=== PATIENT | male | born 1955 | race Caucasian/White ===

== ENCOUNTER 2019-04-18 14:42 | Inpatient (IN) | payer BC ==
[~2019-04-18 14:42] MED LIST: Gadobenate Dimeglumine 529 MG/1 ML (20ML VIAL) ONE
[2019-04-18 15:07] LABS: #Lymphocytes 0.8 thou/uL (1.20-3.40); #Monocytes 0.2 thou/uL (0.11-0.59); #Neutrophils 9.8 thou/uL (1.40-6.50); %Basophils 0.3 % (0.0-1.0); %Monocytes 2.2 % (0.0-10.0); %Neutrophils 90.5 % (42.0-75.0); Hemoglobin 13.1 g/dL (14.0-18.0); Mean Corpuscular HGB CONC 33.8 g/dL (32.0-36.0); Mean Corpuscular Hemoglobin 33.3 pg (27.0-31.0); Mean Corpuscular Volume 98.7 fL (78.0-98.0); Mean Platelet Volume 8.3 fL (7.4-10.4); Platelet Count 216 thou/uL (130-400); RBC Distribution Width 11.7 % (11.5-14.5); Red Blood Cell (RBC) Count 3.94 mill/uL (4.70-6.10); White Blood Cell (WBC) Count 10.8 thou/uL (4.8-10.8)
[2019-04-18 15:23] LABS: ALT (SGPT) 20 U/L (8-55); AST (SGOT) 19 U/L (5-34); Albumin 4.4 g/dL (3.4-4.8); Alkaline Phosphatase 42 U/L (40-150); Anion Gap 14 mmol/L (10-20); BUN (Urea Nitrogen) 15 mg/dL (8.4-25.7); Bilirubin, Total 0.4 mg/dL (0.2-1.2); CK (CPK) 104 U/L (30-200); Calc. Creatinine Clearance 0 mL/min (70-130); Calcium 9.5 mg/dL (7.8-10.44); Carbon Dioxide 27 mmol/L (23-31); Chloride 101 mmol/L (98-107); Estimated GFR-MDRD 81; Globulin 3.2 g/dL (2.4-3.5); Glucose 175 mg/dL (80-115); Potassium 3.8 mmol/L (3.5-5.1); Protein, Total 7.6 g/dL (5.8-8.1); Sodium 138 mmol/L (136-145)
--- NOTE | 2019-04-18 15:23 | CT ---
CT head noncontrast HISTORY: Headache. FINDINGS: A large oval intra-axial heterogeneous hyperdense fluid collection centered within the righ t frontal lobe measures up to 5.5 cm length by 2.1 cm width on the axial images and is in the area generally associated with the watershed distribution between the anterior and middle cerebral artery distributions. Hypodense parenchyma surrounds the acute hematoma. Significant extension of acute hemorrhage into the ventricular system, layering within the dependent portion of the ventricles. Mild distention of each lateral ventricle and temporal horn. Small amount of hyperdense fluid within the sulci of the the effaced cerebral hemispheres bilaterally. Significant diffuse cerebral sulcal ef facement. Mild widespread subarachnoid hemorrhagic component. IMPRESSION: Large right frontal intra-axial acute hematoma with intraventricular extension and early hydrocephalus. Diffuse prominent cerebral edema. 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 Metz in the emergency department at 1514 hours. Code CR.
[2019-04-18] MEDS ORDERED: Ondansetron PF 4 MG/2 ML Vial ONE (15:28)
[2019-04-18 15:36] LABS: PTT 27.8 SEC (22.9-36.1); Prothrombin Time 13.1 SEC (12.0-14.7)
[2019-04-18] MEDS ORDERED: Nitroglycerin 2% Ointment 1 INCH/1 GM Packet ONE (15:37)
--- NOTE | 2019-04-18 15:50 | RAD ---
CHEST 1 VIEW: Date: 04/18/19 HISTORY: Nausea and vomiting and headache. Altered mental status. FINDINGS: There is a nodular density overlying the left upper chest, possibly a pulmonary nodule, approximating 1.0 cm. Heart size is normal. The lungs are clear. IMPRESSION: 1.0 cm diameter nodular density overlying the region of the left upper lobe, possibly a pulmonary nod ule. Consider nonemergent follow-up chest CT scan for further assessment. No evidence for other signi ficant acute process. CODE LN. POS: RRE
[2019-04-18] MEDS ORDERED: Morphine 4 MG/ML VIAL ONE (15:51)
[2019-04-18] MEDS ORDERED: Labetalol HCl 100 MG/20 ML VIAL SLOW IVP PRN ×2 (16:04→18:08)
[2019-04-18] MEDS ORDERED: Acetaminophen 325 MG TAB PO PRN (16:04)
[2019-04-18] MEDS ORDERED: Mag-Al 1200 mg/1200 mg/30 ML UDCUP PO PRN ×2 (16:04→18:08)
[2019-04-18] MEDS ORDERED: Sodium Chloride 0.9% 1,000 ML IV SCH (16:15)
--- NOTE | 2019-04-18 17:02 | PRG ---
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 Over this period of time, he also experienced nausea. His who was present with him states that he had difficulty with standing and gait stability during this period of time. From that time through now, he states the intensity of the headache and the nausea have been relatively stable. These symptoms prompted him to visit the ER where he had a noncontrast head CT performed, which reveals the presence of an intracerebral hemorrhage located within the right medial aspect of the frontal lobe, which extends from the cortex to the ventricle. Associated with the hemorrhage, there is some perihemorrhagic edema. He has a very small degree of midline shift. There is some extension of blood products into the ventricle where there is dependent layering of blood within the occipital horn. There is no evidence for any significant hydrocephalus at this point in time. There may be an area of small hypodensity in the contralateral frontal hemisphere on the left side without associated hemorrhage. I met with him and his in the [facility] ER to review with him the imaging findings and to examine him. He is alert and oriented. He moves all 4 extremities well and is grossly intact neurologically. He does perseverate with a pipe fitter helper on the left side. He does report headache as well as nausea. PLAN: Plan will be transferred to the main hospital admission to the ICU. I have already made Dr. Aguirre with Pulmonary/Critical Care and Dr. Nicole with the hospitalist service aware of his imminent arrival. Once he arrives, we will further investigate potential cause for his hemorrhage including MRI scan with and without contrast and potentially vascular imaging as well. We will work to maintain his blood pressure within the systolic range of less than 160. Currently, it is 135 systolic. We will also repeat a CT scan in the morning and remain vigilant with respect to potential for hydrocephalus. Currently, differential diagnosis includes lobar hemorrhage, hemorrhagic transformation of ischemic stroke, and hemorrhagic manifestation of underlying lesion either vascular or neoplastic. Job ID: [id number] MTDD
--- NOTE | 2019-04-18 18:13 | MRI ---
MRI BRAIN WITH AND WITHOUT CONTRAST: INDICATIONS: Intracranial hemorrhage. CORRELATION: CT brain performed earlier today, which revealed a large parenchymal hematoma in the right frontal lo be. FINDINGS: MRI again confirms a large right frontal lobe hematoma. There is mild surrounding edema. There is some restricted diffusion surrounding this hematoma, although this is compatible with a gloria ricardo. An infarct cannot be confirmed. No other evidence of restricted diffusion. No other mass or edema. Moderate to severe diffuse white matter hyperintensities are seen in both cerebral hemispheres on the FLAIR sequence, suggesting severe chronic ischemic white matter change. Recommend clinical correlat ion regarding predisposing factors. There is no evidence of gradient echo changes that would indicate diffuse amyloid angiopathy. There is no evidence of arteriovenous malformation. There is mild midline shift and mild effacement of the right lateral ventricle. Mild intraventricula r extension was described on CT. No abnormal enhancement. IMPRESSION: 1. Large right frontal lobe hematoma, measuring 8 cm in anterior-posterior dimension x 3.4 cm in wid th, in the axial plane. There is intraventricular extension. There is mild midline shift, measured at approximately 3 mm at the septum pellucidum, unchanged from the CT earlier today. 2. No abnormal enhancement 3. Hemorrhagic metastasis and hemorrhagic infarct cannot be confirmed on this examination. Followup recommended. POS: ABEBA
--- NOTE | 2019-04-18 18:25 | CON ---
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 His brought him to the hospital in the car, where a CT head revealed a large frontal headache. Dr. Wiggins, neurosurgeon has seen him, had been transferred to the ICU for futher work up and treatment. Nonsmoker, minimal drinking. Only medical problem appears to be apparently some kind of reflux and BPH. He sees a local Dr. Acevedo, urologist. PREVIOUS SURGERY: Only vasectomy. MEDICATIONS: Include: 1. Aspirin. 2. Zantac. ALLERGIES: PENICILLIN, SULFA. REVIEW OF SYSTEMS: Otherwise unremarkable. PHYSICAL EXAMINATION: GENERAL: On initial examination, he is awake, alert, responsive, does move all 4 extremities. VITAL SIGNS: His vital signs in the ER are reported otherwise pretty stable with a blood pressure of 153/88, saturations 100% on room air, respiratory rate 18, pulse 80. NEUROLOGIC: He is verbalizing. Moves all 4 extremities. CHEST: No wheezing or crackles. CARDIAC: Normal S1 and S2. No gallops. ABDOMEN: No masses. LABORATORY DATA: White count 10,000, H and H unremarkable. Platelet count normal. Lytes are normal. Glucose slightly elevated. Chest x-ray shows a questionable smooth nodule in the left upper lung. CT head shows a large intracerebral intrafrontal headache. IMPRESSION: Status post right frontal hemorrhage, etiology unclear. History of benign prostatic hypertrophy, reflux. MRI being ordered. Pulmonary/Critical Care will follow while in the ICU. Supportive care. Serial exam. Consultation note, 70 minutes, 50% direct patient care. Job ID: [id number] MTDD
[2019-04-18] MEDS: Sodium Chloride 0.9% 1,000 ML IV SCH (18:43)
[2019-04-18] MEDS ORDERED: Ondansetron ODT 4 MG TAB PO PRN (19:22)
[2019-04-18] MEDS: Ondansetron PF 4 MG/2 ML Vial IVP PRN (19:29)
[2019-04-18] MEDS: Morphine 2 MG/ML SYRINGE SLOW IVP PRN (21:16)
[2019-04-19] MEDS: Sodium Chloride 0.9% 1,000 ML IV SCH ×2 (02:24→17:08)
[2019-04-19] MEDS: Ondansetron PF 4 MG/2 ML Vial IVP PRN ×3 (02:45→15:04)
[2019-04-19 04:32] LABS: #Lymphocytes 0.7 thou/uL (1.20-3.40); #Monocytes 0.6 thou/uL (0.11-0.59); #Neutrophils 8.5 thou/uL (1.40-6.50); %Basophils 0.1 % (0.0-1.0); %Eosinophils 0.2 % (0.0-10.0); %Lymphocytes 7.5 % (21.0-51.0); %Monocytes 5.8 % (0.0-10.0); %Neutrophils 86.4 % (42.0-75.0); Hemoglobin 11.9 g/dL (14.0-18.0); Mean Corpuscular HGB CONC 32.6 g/dL (32.0-36.0); Mean Corpuscular Hemoglobin 32.8 pg (27.0-31.0); Mean Platelet Volume 8.4 fL (7.4-10.4); Platelet Count 191 thou/uL (130-400); RBC Distribution Width 11.4 % (11.5-14.5); Red Blood Cell (RBC) Count 3.61 mill/uL (4.70-6.10); White Blood Cell (WBC) Count 9.8 thou/uL (4.8-10.8)
[2019-04-19 04:52] LABS: Anion Gap 12 mmol/L (10-20); BUN (Urea Nitrogen) 18 mg/dL (8.4-25.7); Calc. Creatinine Clearance 76 mL/min (70-130); Calcium 9.3 mg/dL (7.8-10.44); Carbon Dioxide 27 mmol/L (23-31); Chloride 102 mmol/L (98-107); Estimated GFR-MDRD 90; Glucose 144 mg/dL (80-115); Potassium 4.1 mmol/L (3.5-5.1); Sodium 137 mmol/L (136-145)
--- NOTE | 2019-04-19 07:14 | CT ---
CT BRAIN WITHOUT CONTRAST: INDICATIONS: Follow up intracranial hemorrhage. COMPARISON: Prior MRI brain dated 04/18/2019. CT brain dated 04/18/2019. FINDINGS: The intraaxial hemorrhage involving the right frontal lobe has slightly enlarged, measuring 6.7 x 2.7 cm, where previously it measured approximately 6.3 x 2.5 cm. The degree of intraventricular hemorrh agic extension appears slightly more pronounced with more layered hemorrhage seen within the posterio r horns. The degree of hemorrhage within the anterior horns is similar appearing. The degree of hem orrhage within the third ventricle is similar appearing. No hydrocephalus is evident. There is wors ening layered subarachnoid hemorrhage seen within the sylvian fissures, as well as the sulci of both frontal lobes. No midline shift is evident. The basilar cisterns remain patent. The mastoid air ce lls and paranasal sinuses are clear. The skull is intact. IMPRESSION: 1. Slight interval enlargement of the right frontal lobe intraaxial hematoma with intraventricular e xtension. There is slightly more pronounced hemorrhage layered within the posterior horns of the lat eral ventricles. No hydrocephalus is evident. No midline shift is noted. 2. Worsening subarachnoid hemorrhage seen involving the sulci of the frontal lobe, as well as the sy lvian fissures. POS: BH
--- NOTE | 2019-04-19 08:00 | HP ---
PRIMARY CARE DOCTOR: The patient has no PCP. CODE STATUS: Full code. TIME OF EVALUATION: Around 8:00 p.m. CHIEF COMPLAINT: Severe headache. HISTORY OF PRESENT ILLNESS: A 63-year-old male patient with past medical history of no significant medical problems, came to the hospital after having severe headache that started around 9:00 a.m. with no clear triggers, no alleviating factors, it was severe. The patient has associated nausea and vomiting, described as a worse headache in his life. The symptoms got worse very quickly. Symptoms started suddenly. CT head was done. The patient was found to have intracranial bleeding being admitted by Neurosurgery. We have been called by Dr. Wiggins to help with medical management. REVIEW OF SYSTEMS: CONSTITUTIONAL: No fever, chills, or generalized weakness. RESPIRATORY: No cough, sputum production, or shortness of breath. CARDIOVASCULAR: No chest pain or palpitation. GASTROINTESTINAL: diarrhea, or abdominal pain. MANAGEMENT TRAINEE MARKETING: The patient has headache as described in HPI. GENITOURINARY: No burning on urination. EXTREMITIES: No leg swelling. All other systems were reviewed and negative except for the findings mentioned above. PAST MEDICAL HISTORY: The patient has a history of gastroesophageal reflux disease. PAST SURGICAL HISTORY: Vasectomy in 1991. PSYCHIATRIC HISTORY: No previous psych history. FAMILY HISTORY: Reviewed and non contributory to current presentations SOCIAL HISTORY: The patient drinks socially. No drug use. No smoking history. KNOWN ALLERGIES: Penicillin and sulfa. REPORTED MEDICATIONS: 1. Aspirin 81 tablets oral once a day. 2. Zantac 150 mg twice a day. PHYSICAL EXAMINATION: VITAL SIGNS: On presentation, blood pressure 153/88 with heart rate 90, respiratory rate was 17, temperature 98.7, oxygen saturation 99% on room air. GENERAL APPEARANCE: The patient is alert, oriented, in no acute distress. HEENT: Eyes, normal conjunctivae. Moist oral mucosa. Anicteric. No JVD. RESPIRATORY: Bilateral air entry. No rales. No wheezes. Symmetric expansion. CARDIOVASCULAR: Normal rate, regular rhythm. No murmurs. No gallop. No edema. ABDOMEN: Soft. Normal bowel sounds. MUSCULOSKELETAL: Baseline range of motion and strength. SKIN: Warm, intact. No pallor. No rash. No redness. Capillary refill seems to be intact. NEURO: The patient has left-sided weakness associated with some deviation of the gaze to the right side although the patient cannot move the gaze to the left. He says it is painful. PSYCH: The patient is in good mood. No anxiety. Optimal judgment. IMAGING: EKG was reviewed. The patient has normal sinus rhythm at the rate of 90. Conduction is normal. No evidence of any acute ischemic event. RADIOLOGY: Head CT shows right frontal lobe, intracerebral hemorrhage in the right frontal lobe, intraventricular hemorrhage with cerebral edema and shift of midline of around 3 mm. MRI was reviewed. The patient has large sized frontal lobe hemorrhage measuring 8 cm in anterior-posterior dimension times 3.4 cm in width in the axial plane. There is intraventricular extension. There is midline shift measured at approximately 3 mm at the septum pellucidum, unchanged from the CT earlier today. No abnormal enhancement. Hemorrhagic metastasis and hemorrhagic infarct cannot be confirmed in the examination. LABORATORY DATA: Reviewed. The patient has white count 10.0, hemoglobin 13.1, MCV 98.7, platelet count 216. Coagulation; PT 13, INR 1.0, and PTT 27.8. Chemistry; sodium 138, potassium 3.8, chloride 101, carbon dioxide 27, anion gap 14, BUN 15 , creatinine 0.94, GFR 81, glucose 175 with calcium 9.5, total bilirubin 0.4, AST 19, ALT 20, alkaline phosphatase 42. CK 104, troponin less than 0.010. Serum total protein 7.6, albumin 4.4, globulin 3.2, albumin to globulin ratio is 1.4. ASSESSMENT AND PLAN: The patient will be placed in the hospital with following medical problems. 1. His intracranial bleeding is seen on the CT/MRI. The patient has been placed in ICU. The patient has been seen and monitored by Dr. Wiggins. We will continue to monitor overnight. We will be looking for any change/deterioration in the neurological status. We will control blood pressure and has been normal. We will control pain. 2. Deep venous thrombosis prophylaxis. 3. Gastroesophageal reflux disease, reconcile home medications. 4. Hyperglycemia of 175, could be secondary to acute physical distress. No evidence of diabetes. We will monitor. No need for any acute intervention at this point. 5. As seen on the chest x-ray, the patient has a nodular density of 1 cm in the overlying region of the left upper lobe, possible pulmonary nodule. This should be addressed with nonemergent followup chest CT scan for further assessment and management. Job ID: [id number] [facility]
--- NOTE | 2019-04-19 08:32 | PRG ---
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 He has been in the ICU for about 18 hours now. He has been stable overnight with no change in his neurologic exam. He had an MRI scan with and without contrast performed late yesterday, which showed no evidence for underlying lesion, although the amount of blood may be obscuring the lesion and will require repeat imaging in a few weeks from now. He had a repeat CT examination also this morning, which is stable with no significant changes in size of the hemorrhage or any concerning degree of midline shift. There is no evidence for hydrocephalus at this point in time. He continues to contend with headache rated at 3/10, which is down from a 7/10 yesterday. He also has nausea. He did pass a bedside swallow yesterday, will have Speech Therapy see him to perform a more formal evaluation, at which time, we could advance his diet if he passes. In the meanwhile, we will keep him in the ICU today. We will engage physical therapy and occupational therapy. We will also have our inpatient rehab team evaluate him for inpatient rehab. Barring any significant changes hemodynamically or neurologically over the course of the day today, we can look to transfer him out to the Stroke Unit as early as tomorrow, unless the other services on board have concerns with that. The plan from neurosurgical perspective with respect to his hemorrhage remains a nonsurgical treatment modality. Job ID: [id number]
--- NOTE | 2019-04-19 08:40 | PRG ---
DATE OF SERVICE: 04/19/2019 SUBJECTIVE: This morning, he is awake, alert, and responsive. Still got a headache, slightly nauseated. OBJECTIVE: VITAL SIGNS: Blood pressure is 121/71, pulse 73, respiratory rate 18, saturations 90% on room air. CHEST: Decreased breath sounds. No wheezing. CARDIAC: Normal S1 and S2. No gallops. ABDOMEN: No masses. LABORATORY DATA: Lytes are normal. White count 9000, H and H 11 and 36, and platelet count normal. CT brain again shows the right frontal hemorrhage with extension into the ventricles. IMPRESSION: 1. Right frontal hemorrhage, etiology unclear. 2. History of benign prostatic hyperplasia. PLAN: He is started on Zantac from home. Avoid aspirin. Continue supportive care, PT. Disposition as per Neurosurgery. Job ID: [id number]
[2019-04-19] MEDS: Morphine 2 MG/ML SYRINGE SLOW IVP PRN ×5 (09:09→23:41)
--- NOTE | 2019-04-19 11:48 | CT ---
CT Brain WO Con History: Altered mental status Comparison: CT brain same day Findings: Similar appearance of the large right frontal intracranial hemorrhage with intraventricular extension. No uncal herniation. 4 mm right to left midline shift is similar. Small volume subarachnoid hemorrhage along the left temporoparietal lobe. Impression: 1. Slight interval increase in right to left midline shift of approximately 4 mm. 2. Similar intra-axial hemorrhage with intraventricular extension and hydrocephalus. 2. Similar appearance left convexity subarachnoid hemorrhage.
--- NOTE | 2019-04-19 14:01 | PDOC.HOSPP ---
- Subjective Subjective: awake, responds well to verbal stimuli. at bedside Has headache, no nausea Tries to keep his left UE flexed at elbow, has left gaze difficulty. - Objective Vital Signs & Weight: Vital Signs (12 hours) Temp Pulse Ox 04/19/19 12:00 98.4 F 04/19/19 08:00 97.6 F 98 Weight Admit Weight 133 lb Weight 133 lb 9.6 oz Most Recent Monitor Data Heart Rate from ECG 68 NIBP 135/76 NIBP BP-Mean 95 Respiration from ECG 15 SpO2 98 I&O: 04/18/19 04/19/19 04/20/19 06:59 06:59 06:59 Intake Total 680 395 Output Total 550 400 Balance 130 -5 Result Diagrams: 04/19/19 04:20 04/19/19 04:20 Additional Labs: Accuchecks 04/18/19 14:52 POC Glucose 156 H ROS - Review of Systems All systems: All other ROS were reviewed and found negative. - Medication Medications: Active Medications Generic Name Dose Route Start Last Admin Trade Name Freq PRN Reason Stop Dose Admin Sodium Chloride 1,000 mls @ 60 mls/hr 04/18/19 18:30 04/19/19 02:24 Normal Saline 0.9% IV 1,000 mls .[id number] PAULA Administration Morphine Sulfate 2 mg 04/18/19 21:10 04/19/19 11:11 Morphine SLOW IVP 2 mg Q2H PRN Administration Severe Pain (7-10) Ondansetron HCl 4 mg 04/18/19 19:22 04/19/19 09:10 Zofran IVP 4 mg Q6H PRN Administration Nausea/Vomiting - Exam NAD, awake alert Eye: PERRL, anicteric sclera ENT: normocephalic atraumatic, dry oral mucosa Neck: supple, no JVD Heart: RRR, no murmur Respiratory: no wheezes, no rales Gastrointestinal: soft, non-tender, normal bowel sounds Extremities: no cyanosis, no clubbing Skin: normal turgor, no lesions Neurological: hemiplegia (has left hemiparesis with strength of 4/5, left gaze restriction both eyes, increased tone left side) Hosp A/P (1) Intracranial hemorrhage Code(s): I62.9 - NONTRAUMATIC INTRACRANIAL HEMORRHAGE, UNSPECIFIED Status: Acute Plan: right frontal hemorrhage with intravent extension (2) Subarachnoid hemorrhage Code(s): I60.9 - NONTRAUMATIC SUBARACHNOID HEMORRHAGE, UNSPECIFIED Status: Acute (3) Left hemiparesis Code(s): G81.94 - HEMIPLEGIA, UNSPECIFIED AFFECTING LEFT NONDOMINANT SIDE Status: Acute (4) Headache Code(s): R51 - HEADACHE Status: Acute Qualifiers: Headache chronicity pattern: acute headache Intractability: intractable Plan: sec to ICH (5) BPH (benign prostatic hyperplasia) Code(s): N40.0 - BENIGN PROSTATIC HYPERPLASIA WITHOUT LOWER URINRY TRACT SYMP Status: Chronic Qualifiers: Lower urinary tract symptom presence: symptoms absent Qualified Code(s): N40.0 - Benign prostatic hyperplasia without lower urinary tract symptoms (6) GERD (gastroesophageal reflux disease) Code(s): K21.9 - GASTRO-ESOPHAGEAL REFLUX DISEASE WITHOUT ESOPHAGITIS Status: Chronic Qualifiers: Esophagitis presence: esophagitis presence not specified Qualified Code(s) : K21.9 - Gastro-esophageal reflux disease without esophagitis - Plan gentle iv hydration BP is stable MRI no obvious mass seen is on protonix, morphine and labetalol prn ICH per nsx adv. I have discussed and shown his CT findings to patient and at bedside Speech eval Will likely need neuro-rehab in [place], await pt to stabilize.
[2019-04-19] MEDS: Acetaminophen 325 MG TAB PO PRN (14:08)
[2019-04-19] MEDS ORDERED: Famotidine 20 MG TAB PO PRN (21:00)
--- NOTE | 2019-04-19 22:44 | CON ---
DATE OF CONSULTATION: 04/19/2019 CONSULTING PHYSICIAN: Dr. Wiggins. IMPRESSION: Intraparenchymal hemorrhage with subarachnoid spread with secondary headache and left hemiparesis. PLAN: 1. Continue supportive measures as Dr. Wiggins deems appropriate. 2. Morphine as needed for pain. HISTORY OF PRESENT ILLNESS: Mr. Damico is a 63-year-old gentleman who presented yesterday after apparently developing symptoms a day before he developed some left-sided weakness. His CT scan of the brain showed intraparenchymal hemorrhage in the right frontal lobe. Followup MRI showed the hemorrhage to be 8 x 3.4 cm with some ventricular spread. He had a followup CT scan. Unfortunately, the size of the bleed appeared to have enlarged and there was now subarachnoid blood in the right frontal region. He is complaining of a headache. He was able to get out of bed early and sat up in a chair. He has had some vomiting intermittently and has been receiving Zofran. He is getting morphine every 2 hours for the pain. He did not have any particular complaints otherwise. PAST MEDICAL HISTORY: Otherwise unremarkable. FAMILY HISTORY: Noncontributory. ALLERGIES: NONE. SOCIAL HISTORY: Negative for illicit drug use. REVIEW OF SYSTEMS: Ten-system review of systems is otherwise negative. PHYSICAL EXAMINATION: VITAL SIGNS: Blood pressure 132/79, pulse 53, respirations 12, saturations 100%. HEENT: Pupils ar equal and reactive. Conjunctivae are clear. Oropharynx is clear. Cranium, normocephalic and atraumatic. NECK: No lymphadenopathy. EXTREMITIES: No cyanosis or edema. NEUROLOGIC: He was awake and cooperative. He spoke very softly. He has had somewhat of a flat affect. There was no facial asymmetry. I could not elicit any antigravity strength in the left arm. He had some resistance in the left leg that was diminished compared to the right. Sensation subjectively was intact without neglect. Gait was not tested. No abnormal movements were seen. LABORATORY DATA: EKG shows a sinus rhythm. Imaging was reviewed. SUMMARY: A middle-aged gentleman with spontaneous intraparenchymal hemorrhage with intraventricular and subarachnoid spread. He has secondary headache and nausea. His blood pressure appears to be doing well. I do not have any particular comments as far as his care beyond which we are doing. If he develops any seizure activity, I would be happy to assist in his care. Job ID: [id number]
[2019-04-20] MEDS ORDERED: hydrALAZINE 20 MG/ML VIAL SLOW IVP PRN (00:25)
--- NOTE | 2019-04-20 01:00 | CON ---
DATE OF CONSULTATION: 04/19/2019 HISTORY OF PRESENT ILLNESS: This is a 63-year-old white male I am seeing him on the 19 April 2019 in bed C6 of the ICU. This patient looks like he was admitted yesterday, came in with headaches for couple of days and nausea and vomiting. He was found to have an intracranial bleed and was admitted by Dr. Wiggins, he has not had any procedure for this. I do not believe, yet I felt like it is probably need to stop watching him in the ICU. He could not urinate last night, he was cathed around 2:30 in the morning for 550 mL and he did not urinate by noon today and was cathed again for 350 mL and the Morales was left indwelling. He is currently in bed, sedated and appears tired. His white count is normal. His hemoglobin is 11.9. Coags are normal. Creatinine is 0.86. There was no urinalysis done. I have seen this patient in my office before I last saw him in February of this year. He has had a history of elevated PSA, he has had a biopsy done in [place] in 2016 that was benign. He has had some lower urinary tract symptoms and has been on Flomax in the past. Actually, he had stopped taking Flomax on his own and had not seemed to be bothered when he stops taking it, so he was not on it when I saw him. His last PSA was in January, it was 7.3. PAST MEDICAL HISTORY: 1. Reflux disease. 2. History of hemorrhoids. 3. Lower urinary tract symptoms. 4. He has had a vasectomy. 5. He has had a procedure on his left thumb. ALLERGIES: TO SULFA AND PENICILLIN. ROUTINE MEDICATIONS: He was not on the Flomax anymore when I saw him this summer, although we may look at restarting that. He was taking some ranitidine in the past. PHYSICAL EXAMINATION: ABDOMEN: Soft, nontender. Genitourinary: The bladder is not distended. The testicles are descended without mass or tenderness. Morales catheter draining a clear urine. IMPRESSION: Urinary retention or inability to empty. It may just be related to the bleed. He may have some form of a central nervous system shock. I think for the time being, it is reasonable to just leave this catheter in for a day or 2. He is in the CCU. It can be used for monitoring. The one last thing we have to worry about is perhaps to put him through in and out catheterizations. If it is seems okay with the hospitalist and with the neurosurgeon, then restart him on some tamsulosin 0.4 mg 30 minutes after supper each night. It would probably be a reasonable thing to do. I will follow along with you while he is in the hospital. Job ID: [id number]
[2019-04-20] MEDS: Sodium Chloride 0.9% 1,000 ML IV SCH ×2 (02:05→14:42)
[2019-04-20] MEDS: Morphine 2 MG/ML SYRINGE SLOW IVP PRN ×4 (06:07→17:47)
--- NOTE | 2019-04-20 08:38 | PRG ---
DATE OF SERVICE: 04/20/2019 SUBJECTIVE: He is awake, alert, and responsive. No headache. No nausea or vomiting. He says he is eager to go home. OBJECTIVE: VITAL SIGNS: Blood pressure 152/86, pulse 70, respirations 18, and saturations 100%. CHEST: No wheezing. CARDIAC: Normal S1 and S2. No gallops. ABDOMEN: No masses. IMPRESSION: 1. Intracerebral hemorrhage, etiology unclear. 2. Benign prostatic hyperplasia. PLAN: Continue observation in the ICU. Eventually disposition as per Neurosurgery. Job ID: [id number]
[2019-04-20] MEDS: Acetaminophen 325 MG TAB PO PRN ×3 (08:50→20:31)
[2019-04-20] MEDS: Ondansetron PF 4 MG/2 ML Vial IVP PRN ×2 (08:58→18:22)
--- NOTE | 2019-04-20 12:00 | PRG ---
DATE OF SERVICE: 04/20/[address] Damico this morning as well as his . He has been stable over the last 24 hours as compared to my visit with him yesterday morning with the exception of more weakness in the left arm and leg. He is awake, and he is oriented x5. He is able to follow my commands. He reports headache as a 3/10 and persistent nausea, although this has improved over the past 24 to 48 hours. Yesterday morning, when I visited with him, he was clearly antigravity in the left leg and in the left arm. 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 This change occurred late yesterday morning, which prompted a repeat head CT, which was unchanged compared to earlier in the morning. He continues to have a mild degree of midline shift but no herniation syndromes. His ICH is evolving which volumetrically has not increased to any substantial degree There has been a slight increase in edema around the blood, which is expected. The edema is involving the pre-motor and supplementary motor areas which likely accounts for his weakness. I do not believe his situation is operative given the minimal degree of midline shift and his current cognitive state. There is no concern for HCP at this time. I did explain to his that his neurologic exam may fluctuate over the course of his recovery. The plan is to keep him in the ICU today. I will repeat a head CT tomorrow and continue to evaluate for hydrocephalus as well as any other intracranial changes. If he remains stable through tomorrow morning, we will look at transferring him out to the stroke unit. We have already talked to our rn cardiac rehab and asked her to visit with him regarding placement. Once he is on the stroke unit, we can move forward with aggressive PT and OT. He did pass his formal swallow evaluation yesterday, and we started to advance his diet, although nausea has been a challenge. Hemodynamically, he has been quite stable with a blood pressure that has been less than 140. I answered all of his questions as well as those of his . His condition is currently guarded. The critical care team, stroke team, hospitalists, and neurology are following. Job ID: [id number] [facility]
[2019-04-20] MEDS ORDERED: niCARdipine 25 MG in Sodium Chloride 0.9% 250 ML 250 ML IVPB SCH (13:45)
[2019-04-20] MEDS: hydrALAZINE 20 MG/ML VIAL SLOW IVP PRN ×5 (14:23→22:33)
[2019-04-20] MEDS ORDERED: Lisinopril 10 MG TAB PO SCH (14:45)
--- NOTE | 2019-04-20 15:30 | PDOC.HOSPP ---
- Subjective Subjective: awake, c/o headache, has cold wrap over his head. No nausea or sob or palpitations - Objective Vital Signs & Weight: Vital Signs (12 hours) Temp Pulse Pulse Pulse BP BP BP 04/20/19 14:38 151/68 H 04/20/19 14:23 73 151/68 H 04/20/19 13:08 62 147/83 H 04/20/19 13:07 58 L 69 174/90 H 147/83 H 04/20/19 13:05 66 174/90 H 04/20/19 12:00 98.7 F 04/20/19 08:00 98.4 F 04/20/19 04:00 98.3 F Pulse Ox Pulse Ox 04/20/19 14:38 04/20/19 14:23 04/20/19 13:08 98 04/20/19 13:07 98 04/20/19 13:05 04/20/19 12:00 04/20/19 08:00 100 04/20/19 04:00 Weight Admit Weight 133 lb Weight 133 lb 1.6 oz Most Recent Monitor Data Heart Rate from ECG 94 NIBP 147/83 NIBP BP-Mean 104 Respiration from ECG 24 SpO2 98 I&O: 04/19/19 04/20/19 04/21/19 06:59 06:59 06:59 Intake Total 680 2315 540 Output Total 550 885 250 Balance 130 1430 290 Result Diagrams: 04/19/19 04:20 04/19/19 04:20 ROS - Review of Systems All systems: All other ROS were reviewed and found negative. - Medication Medications: Active Medications Generic Name Dose Route Start Last Admin Trade Name Jessica PRN Reason Stop Dose Admin Acetaminophen 650 mg 04/18/19 18:08 04/20/19 14:38 Tylenol PO 650 mg Q6H PRN Administration Fever > 101 or Headache Hydralazine HCl 10 mg 04/20/19 13:13 04/20/19 14:23 Apresoline SLOW IVP 10 mg Q4H PRN Administration for SBP > 140. Sodium Chloride 1,000 mls @ 75 mls/hr 04/19/19 19:19 04/20/19 14:42 Normal Saline 0.9% IV 1,000 mls .[id number] PAULA Administration Lisinopril 10 mg 04/20/19 14:45 04/20/19 14:38 Zestril PO 04/20/19 16:45 10 mg NOW PAULA Administration Morphine Sulfate 2 mg 04/18/19 21:10 04/20/19 13:31 Morphine SLOW IVP 2 mg Q2H PRN Administration Severe Pain (7-10) Ondansetron HCl 4 mg 04/18/19 19:22 04/20/19 08:58 Zofran IVP 4 mg Q6H PRN Administration Nausea/Vomiting Pantoprazole Sodium 40 mg 04/20/19 09:00 04/20/19 08:50 Protonix PO 40 mg DAILY PAULA Administration Sodium Chloride 10 ml 04/18/19 18:08 04/20/19 08:50 Flush - Normal Saline IVF 10 ml PRN PRN Administration Saline Flush - Exam awake alert Eye: PERRL, anicteric sclera ENT: no oropharyngeal lesions, moist mucosa Neck: supple, no JVD Heart: RRR, no murmur Respiratory: no wheezes, no rales, no ronchi Gastrointestinal: soft, non-tender, normal bowel sounds Extremities: no cyanosis, no clubbing, no edema Skin: no lesions, no rashes Neurological: hemiplegia (left hemiparesis with strength of around 3/5, left gaze deficit is resolved, no diplopia) Psychiatric: normal affect, A&O x 3 Hosp A/P (1) Intracranial hemorrhage Code(s): I62.9 - NONTRAUMATIC INTRACRANIAL HEMORRHAGE, UNSPECIFIED Status: Acute Plan: right frontal intracranial hemorrhage with ventricular extension and edema (2) Subarachnoid hemorrhage Code(s): I60.9 - NONTRAUMATIC SUBARACHNOID HEMORRHAGE, UNSPECIFIED Status: Acute (3) Left hemiparesis Code(s): G81.94 - HEMIPLEGIA, UNSPECIFIED AFFECTING LEFT NONDOMINANT SIDE Status: Acute (4) Headache Code(s): R51 - HEADACHE Status: Acute Qualifiers: Headache chronicity pattern: acute headache Intractability: intractable (5) BPH (benign prostatic hyperplasia) Code(s): N40.0 - BENIGN PROSTATIC HYPERPLASIA WITHOUT LOWER URINRY TRACT SYMP Status: Chronic Qualifiers: Lower urinary tract symptom presence: symptoms present Plan: has malik due to high residuals, prior PSA was around 7 (6) GERD (gastroesophageal reflux disease) Code(s): K21.9 - GASTRO-ESOPHAGEAL REFLUX DISEASE WITHOUT ESOPHAGITIS Status: Chronic Qualifiers: Esophagitis presence: esophagitis presence not specified Qualified Code(s) : K21.9 - Gastro-esophageal reflux disease without esophagitis (7) HTN (hypertension) Code(s): I10 - ESSENTIAL (PRIMARY) HYPERTENSION Status: Acute Qualifiers: Hypertension type: essential hypertension Qualified Code(s): I10 - Essential (primary) hypertension - Plan neurologically has more dense hemiparesis on left side than yesterday but his left gaze paresis has completely resolved today. d/w pt and at bedside, she will talk to her son and decide on rehab options whether to go here or neurorehab in [place]. D/w , is ok to add nimodipine q6h along with lisinopril, has flomax at bedtime, all three should help keep him sbp <140. Hold htn meds if sbp <100. He gets bradycardic with labetalol with pulse dropping down to 40's. PT/OT once his headache and neurologic waxing waning symptoms stabilize. On oral diet, no clinical signs of aspiration per staff. Gentle iv hydration. protonix, neurochecks and close monitoring for signs of raised IC htn.
[2019-04-20] MEDS: niMODipine 30 MG CAP PO SCH (17:28)
--- NOTE | 2019-04-20 18:03 | PRG ---
DATE OF SERVICE: 04/20/2019 This is a 63-year-old white male I am seeing today in ICU bed C6. The patient had an intracerebral bleed. Currently, he has a Morales catheter and difficulty urinating two nights ago and yesterday morning. Urine is clear. Blood pressure is fine. He is on tamsulosin. So, that is good. He will probably take 2 or 3 days to get that back to good levels. Currently leave this catheter in, maybe consider voiding trial in the next 1 to 2 days, probably not before that. It would be nice to see that he is steadily improving and up and ambulating at least before doing that. I will follow along with you. Job ID: [id number]
[2019-04-20] MEDS: Tamsulosin HCl 0.4 MG CAP PO SCH (20:31)
[2019-04-21] MEDS: niMODipine 30 MG CAP PO SCH ×5 (00:13→23:47)
[2019-04-21] MEDS: Sodium Chloride 0.9% 1,000 ML IV SCH ×2 (02:09→13:54)
[2019-04-21] MEDS ORDERED: levETIRAcetam In NaCl (Iso-Os) 1,000 MG in Premix Bag 1 BAG IVPB SCH (06:00)
[2019-04-21 08:47] LABS: Hemoglobin 11.8 g/dL (14.0-18.0); Mean Corpuscular HGB CONC 33.6 g/dL (32.0-36.0); Mean Corpuscular Hemoglobin 33.5 pg (27.0-31.0); Mean Corpuscular Volume 99.7 fL (78.0-98.0); Mean Platelet Volume 8.4 fL (7.4-10.4); Platelet Count 154 thou/uL (130-400); RBC Distribution Width 11.4 % (11.5-14.5); Red Blood Cell (RBC) Count 3.53 mill/uL (4.70-6.10); White Blood Cell (WBC) Count 11.1 thou/uL (4.8-10.8)
--- NOTE | 2019-04-21 08:48 | CT ---
CT OF THE BRAIN WITHOUT CONTRAST: Date: 04/21/19 INDICATION: Follow-up intra-axial hemorrhage. COMPARISON: CT brain dated 04/19/19 at 1131 hours and 0455 hours. FINDINGS: Intraparenchymal hematoma within the right frontal lobe with surrounding vasogenic edema is largely s table to the comparison dated 04/19/19. Previously, the collection measured 6.6 x 3.1 cm. On similar appearing levels of measurement of the right frontal lobe, the collection now measures 6.1 x 3.5 cm. The midline shift is large stable, measuring 4-5 mm. The intraventricular hemorrhage is likely stable . No hydrocephalus is evident. Basilar cisterns remain patent. A small amount of scattered subarachno id hemorrhage within the sulci of the frontal lobes is similar appearing. Skull and extracranial soft tissues are unremarkable appearing. IMPRESSION: 1. Stable right frontal lobe intracranial hematoma when compared to the prior dated 04/19/19 at 1133 hours. The right to left midline shift of 4-5 mm is stable. Basilar cisterns remain patent. 2. Stable intraventricular hemorrhagic extension without hydrocephalus. 3. Small amount of subarachnoid hemorrhage within the sulci of the frontal lobe. POS: ZACH
--- NOTE | 2019-04-21 09:00 | PRG ---
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 He is not waking up for us and has not been waking up for the nurses since around 4 o'clock or 5 o'clock this morning. Repeat CT scan around 5 reveals stable hemorrhage with slightly increased edema, though midline shift is minimal and stable. There is no ventriculomegaly or concern for hydrocephalus. He did receive a 1000 mg of Keppra overnight under the direction of Graham Martinez for concern for underlying subclinical seizure activity as a potential cause for his reduced level of consciousness. At the bedside, he does not open his eyes. Pupils are equally round and reactive to light. He purposely moves the right upper extremity that does not follow specific commands. He localizes to pain with the right upper extremity. He does not move the left upper extremity much if any. I discussed with at bedside. His imaging does not look concerning for progression, though he certainly has neurologic examination that is suboptimal. We will discuss with Dr. Wiggins this morning and followup later today. His blood pressures are well controlled at 130 systolic. Job ID: [id number]
--- NOTE | 2019-04-21 09:01 | PRG ---
DATE OF SERVICE: 04/21/2019 SUBJECTIVE: This morning appears to be more encephalopathic, not easily arousable. CT brain showed a similar amount of swelling and shift of the midline to the left. OBJECTIVE: VITAL SIGNS: His blood pressure is otherwise 120/60, pulse 55, respiratory rate 18, saturations 95%. CHEST: No wheezing or crackles. CARDIAC: Normal S1 and S2. No gallops. No masses. IMPRESSION: 1. Hypertension, mild. 2. Right frontal hemorrhage with extension of the ventricle. 3. More encephalopathic. PLAN: I am concerned about his encephalopathy. Even though his CT did not look any worse, lab is being ordered by. Neurosurgery to see the patient, he may require intubation. Job ID: [id number]
[2019-04-21 09:06] LABS: Anion Gap 11 mmol/L (10-20); BUN (Urea Nitrogen) 20 mg/dL (8.4-25.7); Calc. Creatinine Clearance 99 mL/min (70-130); Calcium 8.4 mg/dL (7.8-10.44); Carbon Dioxide 21 mmol/L (23-31); Chloride 92 mmol/L (98-107); Estimated GFR-MDRD Greater than 90; Glucose 147 mg/dL (80-115); Potassium 3.7 mmol/L (3.5-5.1); Sodium 120 mmol/L (136-145)
[2019-04-21] MEDS ORDERED: Lidocaine 0.5%/Epinephrine 1:200,000 50 ml Vial ONE (09:08)
[2019-04-21] MEDS ORDERED: Thrombin 5000 UNITS/5 ML VIAL ONE (09:09)
[2019-04-21 09:19] LABS: Eosinophils 1 % (0-10); Lymphocytes 16 % (21-51); MDiff Complete? YES; Monocytes 6 % (0-10); Neutrophil 73 % (42-75); RBC Morphology Normal; Reactive Lymphocytes 4 % (0-10)
[2019-04-21] MEDS ORDERED: Fentanyl 100 MCG/2 ML VIAL ONE (09:23)
[2019-04-21] MEDS ORDERED: Midazolam HCl 2 mg/2 ml Vial ONE (09:23)
--- NOTE | 2019-04-21 09:38 | PRG ---
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 He had a repeat CT examination this morning, which shows no change in the amount of blood product, but he does have a change in the degree of swelling around that blood product and an increase in midline shift. I have reviewed this in detail with Denver Guallpa. OBJECTIVE: GENERAL: This morning, he is obtunded. He is purposeful with movements, but he does not awaken and does not open his eyes. NEUROLOGIC: His pupils remain equal, round, and reactive to light. To deep stimulation, he will move his left and right lower and upper extremities. IMAGING STUDIES: He has had an EEG performed, which was negative for seizure activity. ASSESSMENT AND PLAN: My concern is the worsening midline shift is starting to compromise his state of wakefulness and overall neurologic exam. We are at a point now, where I believe it makes sense to move forward with a hemicraniectomy in order to decompress the brain. I had a lengthy discussion with his this morning to bring her up-to-date with respect to his neurologic exam as well as all of his imaging. I did mention to her that this could be treated transiently with mannitol, but I do not believe in this case, it is right the long-term solution. I reviewed with her the surgical procedure to be performed, which would be a right-sided hemicraniectomy. Hemodynamically and from a Respiratory perspective, this morning he is stable. His asked questions. All the risks, benefits, and alternatives to this procedure were discussed. The plan will be to move forward with a right frontal hemicraniectomy. Job ID: [id number] [facility]
[2019-04-21 10:38] LABS: Anion Gap 9 mmol/L (10-20); BUN (Urea Nitrogen) 21 mg/dL (8.4-25.7); Calc. Creatinine Clearance 97 mL/min (70-130); Calcium 8.6 mg/dL (7.8-10.44); Carbon Dioxide 23 mmol/L (23-31); Chloride 92 mmol/L (98-107); Estimated GFR-MDRD Greater than 90; Glucose 141 mg/dL (80-115); Potassium 3.6 mmol/L (3.5-5.1); Sodium 120 mmol/L (136-145)
[2019-04-21] MEDS ORDERED: Sodium Chloride 3% 500 ML IVPB SCH (11:00)
[2019-04-21] MEDS ORDERED: Bacitracin Zinc Ointment 30 gm TUBE ONE (11:24)
[2019-04-21] MEDS ORDERED: Rocuronium Bromide 10 MG/ML (10ML VIAL) ONE (11:28)
[2019-04-21] MEDS ORDERED: Vecuronium 10 MG VIAL ONE (11:28)
[2019-04-21] MEDS ORDERED: PROPOFOL 200 MG/20 ML VIAL ONE (11:28)
[2019-04-21] MEDS ORDERED: Lidocaine 1% PF 5 ML VIAL ONE (11:28)
[2019-04-21] MEDS ORDERED: Succinylcholine Chloride 20 MG/ML 10 ml SYRINGE FS ONE (11:28)
[2019-04-21] MEDS ORDERED: Sodium Chloride 0.9% 20 ML ONE (11:41)
[2019-04-21] MEDS ORDERED: Midazolam HCl 5 mg/5 ml Vial ONE (12:02)
--- NOTE | 2019-04-21 12:17 | PQF ---
AMY VELEZ VINAYA KUMAR MD [id number] CCU-[id number] CLINICAL DOCUMENTATION IMPROVEMENT CLARIFICATION FORM: ICD-10 Updated PLEASE DO AN ADDENDUM TO THE PROGRESS NOTE WITH ANY DOCUMENTATION UPDATES OR ADDITIONS AND CARRY THROUGH TO DC SUMMARY. THANK YOU. DATE: 04/21/2019 ATTN:DR. aAmir ODOM Please exercise your independent, professional judgment in responding to the clarification form. Clinical indicators are provided on the bottom of this form for your review. Please check appropriate box(s): [ x ] Encephalopathy: Type: [ x] Acute [ ] Subacute [ ] Chronic Etiology: [ ] Hypertensive [ ] Metabolic [ ] Toxic [ ] Hepatic with Coma [ ] Hepatic w/o Coma [ ] Hypoxic [ ] Septic [ ] Transient Alteration of Awareness [ x ] Other diagnosis _sec to intracranial hemorrhage and cerebral edema which has developed 2 days after hemorrhage [ ] Unable to determine In addition, please specify: Present on Admission (POA): [ ] Yes [ x ] No [ ] Unable to determine For continuity of documentation, please document condition throughout progress notes and discharge summary. Thank You. CLINICAL INDICATORS - SIGNS / SYMPTOMS / LABS 04/19 ASSESSMENT : INTRACRANIAL BLEED 04/21 PN (KRAMER) THIS MORNING APPEARS TO BE MORE ENCEPHALOPATHIC, NOT EASILY AROUSABLE. CT BRAIN SHOWED A SIMILAR AMOUNT OF SWELLING AND SHIFT OF THE MIDLINE TO THE LEFT IMPRESSION: RIGHT FRONTAL HEMORRHAGE W EXTENSION OF THE VENTRICLE, MORE ENCEPHALOPATHIC, HTN PLAN: I AM CONCERNED ABOUT HIS ENCEPHALOPATHY. EVEN THOUGH HIS CT DID NOT LOOK ANY WORSE, LAB IS BEING ORDERED. NEURO SX TO SEE PT, HE MAY REQUIRE INTUBATION. 04/21 PN (WHITE) OVER THE COURSE OF THE NIGHT THE PT STARTED TO DECLINE NEUROLOGICALLY. HE HAD REPEAT CT EXAMINATIONS THIS MORNING WHICH SHOWS NO CHANGE IN THE AMOUNT OF BLOOD PRODUCT, BUT HE DOES HAVE A CHANGE IN THE DEGREE OF SWELLING AROUND THAT BLOOD PRODUCT AND AN INCREASE IN MIDLINE SHIFT. ASSESSMENT AND PLAN: WE ARE AT A POINT MOW, WHERE I BELIEVE IT MAKE SENSE TO MOVE FORWARD WITH A HEMICRANIECTOMY IN ORDER TO DECOMPRESS THE BRAIN RISK: INTRACRANIAL BLEED HTN TREATMENTS: ICU MONITORING NEUROLOGY CONSULT THANK YOU! [employer] (This form is maintained as a part of the permanent medical record) 2014 [employer]. All Rights Reserved [email or web address] [phone] [facility]
--- NOTE | 2019-04-21 12:31 | PQF ---
AMY VELEZ VINAYA KUMAR MD [id number] CCU-C06 [id number] CLINICAL DOCUMENTATION IMPROVEMENT CLARIFICATION FORM: ICD-10 Updated PLEASE DO AN ADDENDUM TO THE PROGRESS NOTE WITH ANY DOCUMENTATION UPDATES OR ADDITIONS AND CARRY THROUGH TO DC SUMMARY. THANK YOU. DATE: 04/21/2019 ATTN:DR. Aamir ODOM Please exercise your independent, professional judgment in responding to the clarification form. Clinical indicators are provided on the bottom of this form for your review. 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 CEFERINO (This form is maintained as a part of the permanent medical record) 2014 [email or web address]. All Rights Reserved [email or web address] [phone] [facility]
[2019-04-21 13:08] LABS: Actual Bicarbonate (HCO3a) 20.7 mEq/L (22-28); Base Excess (BEa) -3.2 mEq/L (-2.0 to +3.0); CO2 Tension 33.3 mmHg (35.0-45.0); Calcium, Ionized 1.08 mmol/L (1.12-1.30); Carboxyhemoglobin (COHb) 0.8 gm% (0.0-3.0); Hemoglobin (Hb) 11.2 g/dL (14.0-18.0); O2 Tension (PaO2) 102.9 mmHg (> 80.0); Potassium - ABG Lab 3.67 mmol/L (3.70-5.30); pH, Arterial 7.41 (7.35-7.45)
[2019-04-21 13:12] LABS: ALV-art Gradient 140.675 (0-20); Puncture Site LINE
[2019-04-21] MEDS: Labetalol HCl 100 MG/20 ML VIAL SLOW IVP PRN (13:36)
[2019-04-21] MEDS ORDERED: DISCONTINUE PREVIOUS NARCOTIC PAIN MEDICATIONS AND BENZODIAZEPINES FS SCH (13:37)
[2019-04-21] MEDS ORDERED: Propofol 1,000 MG/100 ML VIAL IV PRN (13:37)
[2019-04-21] MEDS ORDERED: Lorazepam 2 MG/ML VIAL SLOW IVP PRN (13:37)
[2019-04-21] MEDS ORDERED: Propofol BOLUS 1,000 MG/100 ML VIAL IV PRN (13:37)
[2019-04-21] MEDS ORDERED: Morphine 2 MG/ML SYRINGE SLOW IVP PRN (13:37)
[2019-04-21] MEDS ORDERED: Fentanyl BOLUS 250 ML IVPB PRN (13:37)
[2019-04-21] MEDS ORDERED: fentaNYL Citrate/PF 2,000 MCG in Sodium Chloride 0.9% 60 ML IV SCH (13:37)
[2019-04-21] MEDS: Morphine 2 MG/ML SYRINGE SLOW IVP PRN (13:44)
[2019-04-21] MEDS: Clindamycin/D5W 900 MG in Premix Bag 1 BAG IVPB SCH ×2 (13:49→21:06)
[2019-04-21] MEDS: Lisinopril 5 MG TAB PO SCH (13:50)
--- NOTE | 2019-04-21 15:14 | CON ---
DATE OF CONSULTATION: HISTORY OF PRESENT ILLNESS: Mr. Damico is a 63-year-old white male, who was initially admitted for severe headache. He was found to have a CVA secondary to an intracranial bleed. He was managed conservatively; however, in the last 12 to 24 hours, his mentation worsened. He was found to have increased cerebral edema and underwent an emergent craniotomy for decompression. We are now being consulted for his acute hyponatremia. Currently, the patient's urine sodium was checked and it was on the low side. For that reason, he received significant volume repletion down in the OR. In addition, we have maintained him at the present time on 3% sodium chloride at 75 mL/hour. Our plan is to do a serum sodium measurement every 2 hours. We will adjust the fluid depending on the rise of the serum sodium. REVIEW OF SYSTEMS: Not obtainable since the patient is sedated and intubated. PAST MEDICAL HISTORY: The patient is relatively in good health except for impaired glucose. PAST SURGICAL HISTORY: Status post vasectomy, status post colonoscopy, and recently status post craniotomy. ALLERGIES: PENICILLIN AND SULFA. TRAUMA: None. IMMUNIZATION: Up-to-date. HOSPITALIZATIONS: Please see past medical history. SOCIAL HISTORY: The patient is a nonsmoker. 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 Alcohol 2 glasses of wine per night. No IV drug use. No history of smoking. He has three siblings. MD Kodi. 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 Lives in [place]. No IV drug abuse. One child. MD Kodi. FAMILY HISTORY: No family history of ESRD. Positive history of hypertension. PHYSICAL EXAMINATION: VITAL SIGNS: Blood pressure 112/81, heart rate 69, respiratory rate 24, and pulse ox 100%. GENERAL: Sedated, intubated on ventilator support. HEENT: He has pinkish conjunctivae. Anicteric sclerae. NECK: No neck mass. No carotid bruits. No JVD. CHEST: No deformities. LUNGS: Clear breath sounds. HEART: Normal sinus rhythm. No murmur. No gallops. No rubs. ABDOMEN: Globular, soft, and nontender no masses. EXTREMITIES: No edema. No deformities. MEDICATIONS: Medications of April 21, 2019; 1. Clindamycin 900 mg IV q.8 hours p.r.n. 2. Hydralazine. 3. Morphine sulfate 2 mg IV q.2 hours p.r.n. 4. Nicardipine drip. 5. Zofran p.r.n. 6. Nimodipine 30 mg q.6. Currently, not given. 7. Protonix 40 mg daily. 8. 3% sodium chloride running at 75 mL/hour. LABORATORY DATA: Laboratories of April 21, 2019, white count 11.1 and hemoglobin 11.8. On April 21, 2019; serum sodium 120, potassium 3.6, chloride 92, carbon dioxide 23, BUN 21, creatinine 0.77, and calcium 8.6. April 19, 2019, serum sodium was 137. Cortisol is 19.2. TSH is 1.4. Urinalysis, urine sodium is less than 20. April 21, 2019, CT scan of the brain shows stable right frontal lobe intracranial hematoma, stable interventricular hemorrhagic extension without hydrocephalus, small amount subarachnoid hemorrhage. ASSESSMENT AND PLAN: Hyponatremia. This is acute in nature. We will start correcting the hyponatremia. With the low urine sodium, I am suspicious for hypovolemic hyponatremia. Currently, on 3% sodium chloride 75 mL/hour. We will be doing serum sodium every 2 hours. We will correct these cautiously. Although in acute hyponatremia, we could have a faster correction. However, the is concerned about rapid correction. We will do relatively slow correction with this patient. I think we can afford this because the patient is hemodynamically stable at the present time. No changes will be made at the present time. I have discussed the case at length with the as well as the nursing staff. We will repeat basic metabolic 2 hours after initiation of the 3% sodium chloride and I will adjust the sodium chloride as needed. Overall prognosis remains guarded. Job ID: [id number]
[2019-04-21 15:27] LABS: Sodium 124 mmol/L (136-145)
--- NOTE | 2019-04-21 15:41 | OP ---
DATE OF PROCEDURE: 04/21/2019 VESSEL ORDINARY SEAMAN: Bradley Geller PA-C. INDICATION: Intracerebral hemorrhage with midline shift. DIAGNOSIS: Right frontal intracerebral hemorrhage with midline shift and neurologic compromise. PROCEDURE PERFORMED: Right frontal craniectomy. ANESTHESIA: General. DESCRIPTION OF PROCEDURE: The patient was brought into the operating room and placed under general anesthesia. He was placed on table in supine position. His head was turned to the left and the right side was shaved. A large reverse question sarah incision was planned and prepped and draped in usual sterile fashion. This area was infiltrated with lidocaine with epinephrine for both analgesia and hemostasis purposes. Following an appropriate pause, the incisions were created. Johnny clips were used along the scalp line for hemostasis. The scalp was reflected anteriorly and secured. Several perforating bur holes were placed along the frontal, parietal, and temporal bones. A router drill bit was used to connect these bur holes and the bone carefully elevated and then placed in secure sterile storage. The underlying dura was identified and opened in a stellate pattern, and the leaflets were reflected toward the perimeter. The underlying brain was identified where the frontal portion was discolored as one would expect from underlying hematoma. There was some swelling of the brain as we expected as well, but no significant bleeding or other immediate concerns. After maintaining hemostasis and irrigating the surface of the brain well, a silastic sheet was placed and secured with multiple interrupted 4-0 suture. An epidural drain was placed and brought out through a separate puncture site. The scalp was reflected toward normal margins and was closed in anatomic layers. A loose head wrap was applied. The procedure came to an end without any known complication. Job ID: [id number] [facility]
[2019-04-21] MEDS: Acetaminophen 650 MG Suppository PR PRN (17:48)
[2019-04-21 18:40] LABS: Sodium 127 mmol/L (136-145)
[2019-04-21] MEDS ORDERED: Sodium Chloride 0.9% 1,000 ML IV SCH (19:30)
[2019-04-21] MEDS ORDERED: Sodium Chloride 0.45% 1,000 ML IV SCH (19:45)
[2019-04-21 20:27] LABS: Sodium 128 mmol/L (136-145)
[2019-04-21 20:33] LABS: Bacteria/HPF None Seen HPF (None Seen); Bilirubin Negative (Negative); Blood, Urine Negative (Negative); Clarity Clear (Clear); Glucose, Urine (Dipstick) Normal (Negative); Leukocyte Negative Leu/uL (Negative); Nitrite Negative (Negative); Protein, Urine (Dipstick) Negative (Neg-Trace); RBC/HPF 0-3 HPF (0-3); Squamous Epithelial None Seen HPF (0-3); Urobilinogen Normal mg/dL (Less than 2); WBC/HPF 0-3 HPF (0-3)
[2019-04-21] MEDS: hydrALAZINE 20 MG/ML VIAL SLOW IVP PRN (21:06)
[2019-04-21] MEDS: Tamsulosin HCl 0.4 MG CAP PO SCH (21:18)
[2019-04-21 22:21] LABS: Sodium 128 mmol/L (136-145)
[2019-04-22 00:36] LABS: Sodium 129 mmol/L (136-145)
[2019-04-22] MEDS: Labetalol HCl 100 MG/20 ML VIAL SLOW IVP PRN ×3 (00:45→13:04)
[2019-04-22] MEDS: hydrALAZINE 20 MG/ML VIAL SLOW IVP PRN ×2 (01:57→09:27)
[2019-04-22 04:31] LABS: #Lymphocytes 0.5 thou/uL (1.20-3.40); #Monocytes 1.4 thou/uL (0.11-0.59); #Neutrophils 8.6 thou/uL (1.40-6.50); %Eosinophils 0.2 % (0.0-10.0); %Monocytes 13.5 % (0.0-10.0); %Neutrophils 81.3 % (42.0-75.0); Hemoglobin 11.1 g/dL (14.0-18.0); Mean Corpuscular Hemoglobin 33.4 pg (27.0-31.0); Mean Platelet Volume 8.6 fL (7.4-10.4); Platelet Count 129 thou/uL (130-400); RBC Distribution Width 11.4 % (11.5-14.5); Red Blood Cell (RBC) Count 3.34 mill/uL (4.70-6.10); White Blood Cell (WBC) Count 10.5 thou/uL (4.8-10.8)
[2019-04-22 04:47] LABS: Anion Gap 12 mmol/L (10-20); BUN (Urea Nitrogen) 19 mg/dL (8.4-25.7); Calc. Creatinine Clearance 97 mL/min (70-130); Calcium 8.5 mg/dL (7.8-10.44); Carbon Dioxide 20 mmol/L (23-31); Chloride 101 mmol/L (98-107); Estimated GFR-MDRD Greater than 90; Glucose 136 mg/dL (80-115); Potassium 3.7 mmol/L (3.5-5.1); Sodium 129 mmol/L (136-145)
[2019-04-22] MEDS: Clindamycin/D5W 900 MG in Premix Bag 1 BAG IVPB SCH ×3 (06:26→21:13)
[2019-04-22] MEDS: niMODipine 30 MG CAP PO SCH (06:50)
--- NOTE | 2019-04-22 07:14 | CT ---
CT OF THE BRAIN WITHOUT CONTRAST: Date: 04/22/19 INDICATION: History of intracranial hematoma. COMPARISON: Prior exam dated 04/21/19 at 0428 hours and 04/19/19 at 1133 hours. FINDINGS: Since the comparison examination, there has been interval right frontal skull craniectomy. There is s ome herniation of the right frontal brain parenchyma beyond the margin of the craniectomy site. There is a dural flap that is in place. Small amount of subarachnoid hemorrhage with gas is seen along the herniated margin of the craniectomy site. The intraparenchymal hematoma is slightly larger than on the comparison examination where now it joseph ures 6.2 x 4.2 cm, where it previously measured approximately 6.1 x 3.6 cm. The previously noted right to left midline shift of 4.5 mm has improved. There is now 1.6 mm of left to right midline shift. The lateral ventricles are more expanded than on the prior examination with slightly more increased l ayered hemorrhage now present within the posterior horn of the lateral ventricles. The temporal horns of the lateral ventricles are slightly more prominent than seen on the previous exam where the tempo ral horn on the left measures 4 mm, where it previously measured 2 mm. The right temporal horn measur es 4.6 mm, where it previously measured 3.35 mm. Basilar cisterns remains patent. There is some pneumocephalus seen involving the right anterior cranial vault. Suspected redistributio n of subarachnoid hemorrhage is seen along the lateral margin of the left temporal lobe, as well as l ayering along the tentorium. Paranasal sinuses and mastoid air cells are clear. IMPRESSION: 1. Interval right frontal skull craniectomy with improvement in the previously seen right to left mi dline shift. There is now a small amount of left to right midline shift of 1.6 mm. 2. Slight expansion of the lateral and third ventricles within the brain, some of which may be relat ed to the craniectomy and relief of intracranial pressure; however, a component of hydrocephalus is n ot excluded. The temporal horns have slightly expanded, as well as the third ventricle. The third christine tricle now measures 5.6 mm, where previously it was slit-like measuring 1.4 mm. 3. The intraparenchymal hematoma within the right frontal lobe has slightly enlarged, now measuring 6.2 x 4.2 cm. Subarachnoid hemorrhage with associated pneumocephalus is seen adjacent to the craniect juan f site. A small amount of pneumocephalus is seen within the anterior right cranial vault. 4. Redistribution of subarachnoid hemorrhage seen along the lateral aspect of the left temporal lobe sulci. 5. Some layered hemorrhage seen along the tentorium. Notification of the report was provided to GILBERTO Cody, at 0358 hours on 04/22/19. CODE CR. POS: [facility]
[2019-04-22 08:38] LABS: Sodium 130 mmol/L (136-145)
[2019-04-22] MEDS: Sodium Chloride 0.9% 1,000 ML IV SCH (08:55)
--- NOTE | 2019-04-22 09:20 | PRG ---
DATE OF SERVICE: 04/22/2019 SUBJECTIVE: This morning, he is on fentanyl. He is biting the tube. Sodium is better, it is 129. Apparently, he is appropriate. He had a craniotomy. OBJECTIVE: VITAL SIGNS: Blood pressure is elevated at 196/87, pulse 93, he is afebrile. His I's and O's have been good. CHEST: No wheezing or crackles. CARDIAC: Normal S1 and S2. No gallops. ABDOMEN: No mass. LABORATORY DATA: His white count 10,000. Otherwise, renal function is normal. His thyroid function is normal. His cortisol level is 19, adequate. IMPRESSION: 1. Status post craniotomy for a right frontal hemorrhage, etiology unclear. 2. Hyponatremia, etiology unclear. His urine sodium was very low at that time. 3. Respiratory failure. PLAN: We will hold sedation, try and wean today. Otherwise, supportive care. Nephrology was consulted regarding ongoing hyponatremia issues. Pulmonary will follow. One-half hour of critical time. Job ID: [id number]
[2019-04-22] MEDS: Lisinopril 5 MG TAB PO SCH (09:28)
--- NOTE | 2019-04-22 09:35 | EEG ---
Referring Physician: Myla ONTIVEROS EEG # [id number] TEST TYPE: ROUTINE PORTABLE INPATIENT REPORT: AN EEG USING THE INTERNATIONAL TEN-TWENTY SYSTEM OF ELECTRODE PLACEMENT WAS PERFORMED. The background activity is a mixture of both Theta and Delta frequencies. The amplitude of the slowing is more prominent in the left hemisphere. No epileptiform features are present. No sleep transients are seen. Photic stimulation was unremarkable. IMPRESSION: THIS IS AN ABNORMAL STUDY FOR THE FINDINGS OF DIFFUSE SLOWING WHICH IS A BIT MORE PROMINENT OVER THE LEFT HEMISPHERE. CLINICAL CORRELATION IS INDICATED. Convex Grinder: CESAR Electroplater Helper: EEG.CEZAR ROBERTS
[2019-04-22] MEDS: Pantoprazole 40 MG VIAL IVP SCH (09:41)
--- NOTE | 2019-04-22 09:59 | PRG ---
DATE OF SERVICE: 04/22/2019 SUBJECTIVE: I am seeing this patient today, 22 of April in room C6 of the ICU. I reviewed his chart from yesterday. He underwent a craniotomy because of worsening of his neuro exam. So, he is currently still intubated on the ventilator in the ICU. His vital signs are stable. He is slightly hyponatremic still, but his creatinine is normal. His hemoglobin is 11.1. His white count is normal. He has had good urine output through the night. Blood pressure has been up some. Urine is clear. The abdomen is soft. Bladder is not distended. The penis is without lesion. The Morales catheter is in good position. The testicles descended without mass or tenderness. With the events of yesterday, I think it would be best just to leave this catheter in over the weekend and not make any attempt to remove it until he is clinically improved and the catheter is no longer need for monitoring. I will not see him this weekend, Dr. Jeffry Girard is available should urologic evaluation be required on the weekend. I will establish and check on him this coming Thursday. Job ID: [id number]
[2019-04-22] MEDS ORDERED: DC Sedation Protocol FS ONE (10:23)
--- NOTE | 2019-04-22 10:30 | PRG ---
DATE OF SERVICE: 04/22/2019 SUBJECTIVE: Mr. 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 He underwent emergent craniotomy to relieve the swelling of the brain. We are following up this patient for his acute hyponatremia. Serum sodium was 120. We slowly corrected hyponatremia. He was initially given hypertonic saline at 75 mL/h for a total of 2 hours. This was eventually tapered down, and the serum sodium started slowly correcting. The most recent serum sodium is now 130. I decided due to the cerebral swelling to convert the current IV fluid from half-normal saline to that of normal saline to run at the same rate of minimal 50 mL an hour. I also suspect that this patient's hyponatremia is improving due to the auto-correction by the patient. No other complaints. No acute events. He is more awake today. He still remains intubated. OBJECTIVE: VITAL SIGNS: Blood pressure is 162/69, heart rate 80, and respiratory rate 12. GENERAL: The patient is sleepy, but arousable, intubated. HEENT: He has pinkish conjunctivae. Anicteric sclerae. NECK: No neck mass. No carotid bruits. No JVD. CHEST: No deformities. LUNGS: Clear breath sounds. HEART: Normal sinus rhythm. No murmur. No gallops or rubs. ABDOMEN: Globular, soft, nontender. No masses. EXTREMITIES: No edema. No deformities. MEDICATIONS: Medications of April 22, 2019, reviewed. LABORATORY DATA: Laboratories of April 22, 2019; white count 10.5, hemoglobin 11.1. On April 22, 2019, 4:15 a.m., sodium 129, potassium 3.7, chloride 101, carbon dioxide 20, BUN 19, creatinine 0.77, and calcium is 8.5. On April 22, 2019, 8:13 a.m., serum sodium is 130. ASSESSMENT AND PLAN: 1. Acute hyponatremia - Near much improved serum sodium. Most recent serum sodium is now 130. Very minimal correction. Due to the cerebral edema, I decided to change the half-normal saline to normal saline to run at a slow rate of 50 mL/h. I think he will tolerate this. He is diuresing adequately. Please note, he has also on auto self-correction of the hyponatremia. My working diagnosis of the acute hyponatremia is this is secondary to a hypovolemic hyponatremia. 2. Status post cerebrovascular accident secondary to intracranial bleed, status post craniotomy, stable, doing well, Surgery is following. Overall, agree with current management. Continue q.4 hours monitoring the serum sodium. Job ID: [id number]
[2019-04-22] MEDS ORDERED: Amlodipine 5 MG TAB PO SCH (10:45)
[2019-04-22] MEDS ORDERED: Furosemide 20 MG/2 ML VIAL SLOW IVP SCH ×2 (11:30→14:00)
--- NOTE | 2019-04-22 11:40 | RAD ---
PORTABLE CHEST: Date: 04/22/19 HISTORY: CCU follow-up on ventilator. COMPARISON: 04/18/19. FINDINGS/IMPRESSION: Hazy infiltrate or atelectasis in both lung bases with evidence of small bilateral effusions. The haz y bibasilar opacity has occurred since the prior exam. ET tube is in adequate position with tip above layla. POS: [facility]
--- NOTE | 2019-04-22 12:08 | PRG ---
DATE OF SERVICE: 04/22/2019 SUBJECTIVE: Mr. Damico is now 1-day status post hemicraniectomy. He looks much better this morning than he did yesterday this time. He awakens easily to voice and very clearly follows commands with the right side. He gave me a thumbs-up with the right hand and wiggled his toes. He remains densely hemiparetic on the left side. He has had about 90 out of the drain since surgery and we will keep that in place for now. His head wrap is loosely secured. He had a repeat CT examination performed today, which shows no change in the size of the hemorrhage. There is some increase in the perihemorrhagic edema and midline shift that he had yesterday is almost completely resolved. He does have slight enlargement of his ventricles, which may represent ex-vacuo of ventriculomegaly or could be early hydrocephalus. There is no evidence for any herniation syndrome radiographically or at this time clinically. I met with his this morning and updated her on all of his current images as well as his labs, which show appropriate correction of his sodium from rather profound hyponatremia yesterday. I have talked with Dr. Aguirre and the hospitalist service today and would like to be aggressive in extubating him. I think he is very close to being at that point today. We will need to remain vigilant with respect to his blood pressure management. We also need to keep his glucose levels within the normal range. I indicated to his that I will be leaving town this afternoon with my partner. Dr. Sánchez, who will resume care over the course of the weekend and I will return next Thursday. Overall, I am pleased with the progress that we have made the last 24 hours and remain cautiously optimistic that he can continue to improve. Job ID: [id number]
[2019-04-22 12:24] LABS: Sodium 129 mmol/L (136-145)
--- NOTE | 2019-04-22 14:00 | PRG ---
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 Yesterday, it was as low as 120. This morning after gradual correction yesterday using 3% hypertonic saline, he is now up to 129 as of 6 o'clock this morning. When I am seeing him at bedside from a clinical perspective, he has improved tremendously. He is resting, but upon saying his name, he opens his eyes abruptly and extends his hand to shake. He follows commands briskly in the right upper and right lower extremities. He does have some rightward deviation of gaze in the right eye. Pupils are equally round and reactive to light. Drainage through NURA drain has been relatively high at around 90 over the last 8 hours. We would like to see this taper more before discontinuing the drain. Given how awake he looks, it would be appropriate to move forward with extubation. We will rely in our Pulmonary/Critical Care colleagues for this purpose. Neurosurgery will continue to follow. Job ID: [id number]
--- NOTE | 2019-04-22 14:53 | PDOC.HOSPP ---
- Subjective Subjective: awakens to touch, on vent not fully oriented, although he has followed verbal stimuli with staff and . - Objective Vital Signs & Weight: Vital Signs (12 hours) Temp Pulse Resp BP Pulse Ox 04/22/19 13:04 106 H 141/69 H 04/22/19 12:00 99.2 F 04/22/19 10:44 100 172/87 H 04/22/19 10:32 101 H 21 H 94 L 04/22/19 10:00 18 04/22/19 09:28 78 04/22/19 09:27 80 162/69 H 04/22/19 08:50 78 04/22/19 08:00 99.8 F H 18 04/22/19 07:30 93 196/87 H 04/22/19 07:21 101 H 153/63 H 04/22/19 06:00 14 04/22/19 04:00 100.2 F H 16 Weight Admit Weight 132 lb 4.438 oz Weight 151 lb Most Recent Monitor Data Heart Rate from ECG 100 NIBP 145/68 NIBP BP-Mean 93 Respiration from ECG 16 SpO2 93 I&O: 04/21/19 04/22/19 04/23/19 06:59 06:59 06:59 Intake Total 3871 1397.1 Output Total 970 1260 685 Balance 2901 -482.9 -685 Result Diagrams: 04/22/19 04:15 04/22/19 11:58 ROS - Review of Systems All systems: All other ROS were reviewed and found negative. - Medication Medications: Active Medications Generic Name Dose Route Start Last Admin Trade Name Parminderq PRN Reason Stop Dose Admin Acetaminophen 650 mg 04/18/19 18:08 04/20/19 20:31 Tylenol PO 650 mg Q6H PRN Administration Fever > 101 or Headache Acetaminophen 650 mg 04/21/19 17:02 04/21/19 17:48 Tylenol NM 650 mg Q4H PRN Administration TEMPERATURE Furosemide 20 mg 04/22/19 14:00 04/22/19 14:21 Lasix SLOW IVP 04/22/19 16:00 20 mg NOW PAULA Administration Hydralazine HCl 10 mg 04/20/19 13:13 04/22/19 01:57 Apresoline SLOW IVP 10 mg Q4H PRN Administration for SBP > 140. Hydralazine HCl 10 mg 04/20/19 14:24 04/22/19 09:27 Apresoline SLOW IVP 10 mg Q2H PRN Administration SBP>140 Nicardipine HCl 25 mg/ Sodium 260 mls @ 0 mls/hr 04/20/19 13:45 04/22/19 12: 13 Chloride IVPB 260 mls INF PAULA Administration Protocol Titrate Clindamycin Phosphate/Dextrose 50 mls @ 100 mls/hr 04/21/19 14:00 04/22/19 14 :20 900 mg/ Device IVPB 50 mls Q8HR PAULA Administration Fentanyl Citrate 2,000 mcg/ 100 mls @ 0 mls/hr 04/21/19 13:37 04/21/19 14:33 Sodium Chloride IV 05/21/19 13:37 100 mls INF PAULA Administration Protocol Per Protocol Sodium Chloride 1,000 mls @ 50 mls/hr 04/22/19 09:30 04/22/19 08:55 Normal Saline 0.9% IV 1,000 mls .Q20H PAULA Administration Labetalol HCl 20 mg 04/22/19 12:55 04/22/19 13:04 Normodyne SLOW IVP 20 mg Q4H PRN Administration for SBP > 140. Morphine Sulfate 2 mg 04/18/19 21:10 04/21/19 13:44 Morphine SLOW IVP 2 mg Q2H PRN Administration Severe Pain (7-10) Ondansetron HCl 4 mg 04/18/19 19:22 04/20/19 18:22 Zofran IVP 4 mg Q6H PRN Administration Nausea/Vomiting Pantoprazole Sodium 40 mg 04/22/19 09:00 04/22/19 09:41 Protonix IVP 40 mg DAILY PAULA Administration Sodium Chloride 10 ml 04/18/19 18:08 04/20/19 08:50 Flush - Normal Saline IVF 10 ml PRN PRN Administration Saline Flush Tamsulosin HCl 0.4 mg 04/20/19 21:00 04/21/19 21:18 Flomax PO Not Given HS PAULA - Exam Eye: anicteric sclera (left eyelid edema due to surgery) ENT: no oropharyngeal lesions, dry oral mucosa Neck: supple, no JVD Heart: RRR, no murmur Respiratory: no wheezes, no rales Gastrointestinal: soft, non-tender, normal bowel sounds Extremities: no cyanosis, 1+ LE edema Neurological: hemiplegia (left) Hosp A/P (1) Intracranial hemorrhage Code(s): I62.9 - NONTRAUMATIC INTRACRANIAL HEMORRHAGE, UNSPECIFIED Status: Acute (2) Subarachnoid hemorrhage Code(s): I60.9 - NONTRAUMATIC SUBARACHNOID HEMORRHAGE, UNSPECIFIED Status: Acute (3) Left hemiparesis Code(s): G81.94 - HEMIPLEGIA, UNSPECIFIED AFFECTING LEFT NONDOMINANT SIDE Status: Acute (4) Headache Code(s): R51 - HEADACHE Status: Acute Qualifiers: Headache chronicity pattern: acute headache Intractability: intractable (5) BPH (benign prostatic hyperplasia) Code(s): N40.0 - BENIGN PROSTATIC HYPERPLASIA WITHOUT LOWER URINRY TRACT SYMP Status: Chronic Qualifiers: Lower urinary tract symptom presence: symptoms present (6) GERD (gastroesophageal reflux disease) Code(s): K21.9 - GASTRO-ESOPHAGEAL REFLUX DISEASE WITHOUT ESOPHAGITIS Status: Chronic Qualifiers: Esophagitis presence: esophagitis presence not specified Qualified Code(s) : K21.9 - Gastro-esophageal reflux disease without esophagitis (7) HTN (hypertension) Code(s): I10 - ESSENTIAL (PRIMARY) HYPERTENSION Status: Acute Qualifiers: Hypertension type: essential hypertension Qualified Code(s): I10 - Essential (primary) hypertension - Plan d/w and I have given updates d/w and , likely extubation if he wakes up more sodium levels are better this morning around 130, is closely monitoring this, is on NS at present CT brain from this am was reviewed with he got lasix 20mg iv x1 this am continue norvasc, protonix, flomax and clindamycin
[2019-04-22] MEDS ORDERED: niCARdipine 50 MG in Sodium Chloride 0.9% 250 ML 230 ML IVPB SCH (16:00)
[2019-04-22] MEDS: Acetaminophen 650 MG Suppository PR PRN (16:00)
[2019-04-22] MEDS ORDERED: Pancrelipase DR 12000 1 CAP FS PRN (16:27)
[2019-04-22] MEDS ORDERED: Sodium Bicarbonate Tab 325 MG TAB PER TUBE PRN (16:27)
[2019-04-22 16:44] LABS: Sodium 131 mmol/L (136-145)
[2019-04-22] MEDS: Tamsulosin HCl 0.4 MG CAP PO SCH (19:38)
[2019-04-22] MEDS: Acetaminophen 325 MG TAB PO PRN (19:39)
[2019-04-22 21:39] LABS: Sodium 131 mmol/L (136-145)
[2019-04-23] MEDS: Acetaminophen 325 MG TAB PO PRN ×3 (00:14→15:01)
[2019-04-23] MEDS: Sodium Chloride 0.9% 1,000 ML IV SCH (04:53)
[2019-04-23] MEDS: Clindamycin/D5W 900 MG in Premix Bag 1 BAG IVPB SCH ×3 (04:53→20:59)
[2019-04-23 05:34] LABS: #Lymphocytes 0.5 thou/uL (1.20-3.40); #Neutrophils 5.9 thou/uL (1.40-6.50); %Basophils 0.1 % (0.0-1.0); %Eosinophils 0.5 % (0.0-10.0); %Lymphocytes 7.3 % (21.0-51.0); %Neutrophils 79.1 % (42.0-75.0); Mean Corpuscular HGB CONC 35.1 g/dL (32.0-36.0); Mean Corpuscular Hemoglobin 34.5 pg (27.0-31.0); Mean Corpuscular Volume 98.2 fL (78.0-98.0); Mean Platelet Volume 8.5 fL (7.4-10.4); Platelet Count 110 thou/uL (130-400); RBC Distribution Width 11.4 % (11.5-14.5); Red Blood Cell (RBC) Count 2.89 mill/uL (4.70-6.10); White Blood Cell (WBC) Count 7.4 thou/uL (4.8-10.8)
[2019-04-23 05:55] LABS: Anion Gap 12 mmol/L (10-20); BUN (Urea Nitrogen) 19 mg/dL (8.4-25.7); Calc. Creatinine Clearance 94 mL/min (70-130); Calcium 8.2 mg/dL (7.8-10.44); Carbon Dioxide 23 mmol/L (23-31); Chloride 100 mmol/L (98-107); Estimated GFR-MDRD Greater than 90; Glucose 150 mg/dL (80-115); Sodium 131 mmol/L (136-145)
[2019-04-23] MEDS: Labetalol HCl 100 MG/20 ML VIAL SLOW IVP PRN ×3 (06:19→21:35)
[2019-04-23] MEDS: Morphine 2 MG/ML SYRINGE SLOW IVP PRN ×3 (07:24→23:46)
[2019-04-23] MEDS: Amlodipine 5 MG TAB PO SCH (07:24)
--- NOTE | 2019-04-23 08:15 | RAD ---
CHEST 1 VIEW: Date: 04/23/19 INDICATION: CCU examination with patient on ventilation. COMPARISON: 04/22/19. FINDINGS: Since the comparison examination, the patient has been intubated. Gastric catheter persists. Bilatera l lower lobe ground-glass opacities persist. Small pleural effusions are similar appearing. Heart siz e is within normal limits. No pneumothorax is evident. IMPRESSION: 1. Interval extubation. 2. Persistent bilateral pleural effusions and hazy air space opacities of both lower lobes. POS: [facility]
[2019-04-23] MEDS ORDERED: Dextrose 50% Abboject 50 ML SYRINGE SLOW IVP PRN (08:53)
[2019-04-23] MEDS ORDERED: Dextrose 5% in Water 1,000 ML IV PRN (08:53)
[2019-04-23] MEDS ORDERED: HumaLOG 300 UNITS/3 ML VIAL SC PRN (08:53)
[2019-04-23] MEDS: Pantoprazole 40 MG VIAL IVP SCH (09:00)
[2019-04-23] MEDS ORDERED: Furosemide 20 MG/2 ML VIAL SLOW IVP SCH ×2 (09:30→10:55)
--- NOTE | 2019-04-23 10:09 | PRG ---
DATE OF SERVICE: 04/23/2019 SUBJECTIVE: This morning, he is awake, responsive, opens his eyes. Moves his tongue. OBJECTIVE: VITAL SIGNS: Blood pressure 133/69, pulse 74, saturations 90% on 4 L. He is on low-dose Cardene to try and keep his systolic less than 140. His I's and O's have been consistently negative. CHEST: No wheezing or crackles. CARDIAC: Normal S1, S2. No gallops. ABDOMEN: No masses. LABORATORY DATA: Sodium is 131, improved. BNP was 276. Glucose is 150. IMPRESSION: 1. Status post intracerebral hemorrhage, status post craniotomy. 2. Fever, probably central. He is already on clindamycin. 3. Left-sided cerebrovascular accident. 4. Hypertension. PLAN: Speech and PT consulted. Otherwise, continue supportive care, nutrition PT. Job ID: [id number]
[2019-04-23] MEDS: Carvedilol 3.125 MG TAB PO SCH ×2 (10:29→17:08)
[2019-04-23] MEDS: HumaLOG 300 UNITS/3 ML VIAL SC PRN ×3 (10:44→23:48)
--- NOTE | 2019-04-23 11:27 | ULT ---
BILATERAL LOWER EXTREMITY VENOUS DOPPLER ULTRASOUND: Date: 04/23/19 HISTORY: Bilateral lower extremity edema. TECHNIQUE: Carey scale ultrasound with color flow and spectral Doppler imaging of the deep venous systems of the lower extremities was performed bilaterally. FINDINGS: The left common femoral and saphenofemoral junctions are not satisfactorily visualized due to patient position. There is good flow, compression, and augmentation noted in the right common femoral, femoral, deep fe moral, popliteal, posterior tibial, and greater saphenous veins. The visualized portions of the deep veins of the left lower extremity demonstrate no evidence of deep venous thrombosis. IMPRESSION: No definite evidence of deep venous thrombosis in the lower extremities. POS: [facility]
--- NOTE | 2019-04-23 11:39 | PRG ---
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 He developed worsening cerebral edema. For that reason, underwent craniotomy. He was also noted to be severely hyponatremic. His hyponatremia is much improved in the last 24 hours. He was initially given some hypertonic saline. Currently, he is on just maintenance normal saline. In addition, it was also noted that the patient was in some degree of CHF. Chest x-ray shows increased lung markings and ? of pulmonary edema. Lasix is being given. He received 40 mg IV of Lasix yesterday. The plan is to give him a total of 40 mg IV of Lasix. I feel that this also will help with the hyponatremia. Since tube feeding has been started, we will discontinue the normal saline. OBJECTIVE: VITAL SIGNS: Blood pressure is 129/81, heart rate is 87, respiratory rate is 19, pulse ox is 99%. GENERAL: The patient is extubated, sleeping, but arousable, not in distress. SKIN: Adequate turgor. HEENT: He has slightly pale conjunctivae. Anicteric sclerae. NECK: No neck mass. No carotid bruits. No JVD. CHEST: No deformities. LUNGS: Decreased breath sounds. No wheezing. Positive for basal crackles. HEART: Normal sinus rhythm. No murmur. No gallops. No rubs. ABDOMEN: Globular, soft, nontender. No masses. EXTREMITIES: No edema. No deformities. MEDICATIONS: Medications of 04/23/2019 were reviewed. LABORATORY DATA: Laboratories of 04/23/2019; white count 7.4, hemoglobin 10. Sodium 131, potassium 4, chloride 100, carbon dioxide 23, BUN 19, creatinine 0.79, glucose 150, calcium 8.2. Urinalysis of 04/21/2019 showed specific gravity of 1.004. ASSESSMENT AND PLAN: 1. Hyponatremia - multifactorial etiology. Initially this was felt secondary to hypovolemic hyponatremia due to urine sodium less than 20. Further review shows his chest x-ray shows some degree of CHF. He may have a combination now of dilutional hyponatremia. Agree with diuretics. We will increase Lasix to a total of 40 mg IV now. Agree to hold off normal saline. The patient is now on a tube feeding. 2. Status post CVA - intracranial bleed - status post craniotomy, stable and doing well. 3. Hypertension, adequate control at the present time. We will recheck basic metabolic panel again at 08:00 p.m. and in a.m. Job ID: [id number]
--- NOTE | 2019-04-23 13:36 | PDOC.HOSPP ---
- Subjective Subjective: awakens easily, follows simple verbal stimuli does not move left extremities except for mild flexion at left knee PT tried to stand him up at bedside neice at bedside maintaining airway, has ng tube, right hand mittens to prevent him from pulling ng tube has not cleared bedside swallow by RN - Objective Vital Signs & Weight: Vital Signs (12 hours) Temp Pulse Pulse Pulse BP BP BP 04/23/19 12:00 100.9 F H 04/23/19 10:18 86 84 132/67 131/64 04/23/19 08:00 101.7 F H 04/23/19 07:54 04/23/19 07:24 84 133/69 04/23/19 04:00 101.7 F H Pulse Ox Pulse Ox Pulse Ox 04/23/19 12:00 04/23/19 10:18 99 98 04/23/19 08:00 04/23/19 07:54 97 04/23/19 07:24 04/23/19 04:00 Weight Admit Weight 132 lb 4.438 oz Weight 147 lb 14.883 oz Most Recent Monitor Data Heart Rate from ECG 84 NIBP 129/65 NIBP BP-Mean 86 Respiration from ECG 20 SpO2 98 I&O: 04/22/19 04/23/19 04/24/19 06:59 06:59 06:59 Intake Total 1397.1 2007.2 257 Output Total 1880 2655 1090 [facility]482.9 -647.8 -833 Result Diagrams: 04/23/19 05:20 04/23/19 05:20 ROS - Review of Systems All systems: All other ROS were reviewed and found negative. - Medication Medications: Active Medications Generic Name Dose Route Start Last Admin Trade Name Freq PRN Reason Stop Dose Admin Acetaminophen 650 mg 04/18/19 18:08 04/23/19 07:23 Tylenol PO 650 mg Q6H PRN Administration Fever > 101 or Headache Acetaminophen 650 mg 04/21/19 17:02 04/22/19 16:00 Tylenol [place] 650 mg Q4H PRN Administration TEMPERATURE Amlodipine Besylate 5 mg 04/23/19 09:00 04/23/19 07:24 Norvasc PO 5 mg DAILY PAUAL Administration Carvedilol 3.125 mg 04/23/19 17:00 04/23/19 10:29 Coreg PO 3.125 mg BID-WM PAULA Administration Hydralazine HCl 10 mg 04/20/19 13:13 04/22/19 01:57 Apresoline SLOW IVP 10 mg Q4H PRN Administration for SBP > 140. Hydralazine HCl 10 mg 04/20/19 14:24 04/22/19 09:27 Apresoline SLOW IVP 10 mg Q2H PRN Administration SBP>140 Clindamycin Phosphate/Dextrose 50 mls @ 100 mls/hr 04/21/19 14:00 04/23/19 04 :53 900 mg/ Device IVPB 50 mls Q8HR PAULA Administration Fentanyl Citrate 2,000 mcg/ 100 mls @ 0 mls/hr 04/21/19 13:37 04/21/19 14:33 Sodium Chloride IV 05/21/19 13:37 100 mls INF PAULA Administration Protocol Per Protocol Nicardipine HCl 50 mg/ Sodium 250 mls @ 0 mls/hr 04/22/19 16:00 04/22/19 19: 59 Chloride IVPB 250 mls INF PAULA Administration Protocol Titrate Insulin Human Lispro 0 units 04/23/19 08:53 04/23/19 10:44 Humalog SC 2 unit .MILD SLIDING SCALE PRN Administration Mild Correctional Scale Labetalol HCl 20 mg 04/22/19 12:55 04/23/19 06:19 Normodyne SLOW IVP 20 mg Q4H PRN Administration for SBP > 140. Morphine Sulfate 2 mg 04/18/19 21:10 04/23/19 07:24 Morphine SLOW IVP 2 mg Q2H PRN Administration Severe Pain (7-10) Ondansetron HCl 4 mg 04/18/19 19:22 04/20/19 18:22 Zofran IVP 4 mg Q6H PRN Administration Nausea/Vomiting Pantoprazole Sodium 40 mg 04/22/19 09:00 04/23/19 09:00 Protonix IVP 40 mg DAILY PAULA Administration Sodium Chloride 10 ml 04/18/19 18:08 04/20/19 08:50 Flush - Normal Saline IVF 10 ml PRN PRN Administration Saline Flush Tamsulosin HCl 0.4 mg 04/20/19 21:00 04/22/19 19:38 Flomax PO 0.4 mg HS PAULA Administration - Exam awake alert, ill appearing Eye: PERRL, anicteric sclera ENT: no oropharyngeal lesions, dry oral mucosa Neck: supple, no JVD Heart: RRR, no murmur Respiratory: no wheezes, rhonchi Gastrointestinal: soft, non-tender, normal bowel sounds Extremities: no clubbing, 1+ LE edema (in left UE extremity) Neurological: hemiplegia (left hemiplegia, has right eyelid edema due to surgery ) Hosp A/P (1) Intracranial hemorrhage Code(s): I62.9 - NONTRAUMATIC INTRACRANIAL HEMORRHAGE, UNSPECIFIED Status: Acute (2) Subarachnoid hemorrhage Code(s): I60.9 - NONTRAUMATIC SUBARACHNOID HEMORRHAGE, UNSPECIFIED Status: Acute (3) Left hemiparesis Code(s): G81.94 - HEMIPLEGIA, UNSPECIFIED AFFECTING LEFT NONDOMINANT SIDE Status: Acute (4) Headache Code(s): R51 - HEADACHE Status: Acute Qualifiers: Headache chronicity pattern: acute headache Intractability: intractable (5) BPH (benign prostatic hyperplasia) Code(s): N40.0 - BENIGN PROSTATIC HYPERPLASIA WITHOUT LOWER URINRY TRACT SYMP Status: Chronic Qualifiers: Lower urinary tract symptom presence: symptoms present (6) GERD (gastroesophageal reflux disease) Code(s): K21.9 - GASTRO-ESOPHAGEAL REFLUX DISEASE WITHOUT ESOPHAGITIS Status: Chronic Qualifiers: Esophagitis presence: esophagitis presence not specified Qualified Code(s) : K21.9 - Gastro-esophageal reflux disease without esophagitis (7) HTN (hypertension) Code(s): I10 - ESSENTIAL (PRIMARY) HYPERTENSION Status: Acute Qualifiers: Hypertension type: essential hypertension Qualified Code(s): I10 - Essential (primary) hypertension - Plan is on cardene drip low dose, sbp around 130's, hr around 90 ng tube for oral meds, ensure 1 can tid if he tolerates still hemiplegic on left, likely dysphagia (await speech eval) continue coreg, norvasc, protonix, flomax sodium is stable after diuresis, off iv fluids has gained around 18lbs since admission hemostable, prognosis guarded on clindamycin, dewitt cultures are obtained
--- NOTE | 2019-04-23 14:53 | PRG ---
DATE OF SERVICE: 04/23/2019 Mr. Damico is postoperative day 2 from right frontal craniectomy to allow for a reduction in intracranial hypertension and mass effect. His postoperative head CT demonstrates excellent correction of the midline shift. Although, it is a bit more ventricular prominence, to my eyes this appears more of a simply correction in the midline shift and less effacement of the ventricular system. Currently, he is sedated, undergoing a transthoracic echocardiogram, but otherwise he remains neurologically stable compared to yesterday with following commandson the right and hemiplegic on the left. We will obtain an ultrasound of the lower extremities today and continue to follow along closely. His drain output has been very low. Job ID: [id number] MTDD
[2019-04-23] MEDS: Tamsulosin HCl 0.4 MG CAP PO SCH (20:59)
[2019-04-23 21:00] LABS: Sodium 134 mmol/L (136-145)
[2019-04-23] MEDS: Acetaminophen 1,000 MG in Premix Bag 1 BAG IVPB PRN (22:27)
[2019-04-24] MEDS: Labetalol HCl 100 MG/20 ML VIAL SLOW IVP PRN ×3 (03:02→21:37)
[2019-04-24] MEDS: hydrALAZINE 20 MG/ML VIAL SLOW IVP PRN ×3 (04:10→19:27)
[2019-04-24] MEDS: HumaLOG 300 UNITS/3 ML VIAL SC PRN ×3 (04:12→22:55)
[2019-04-24 04:20] LABS: #Lymphocytes 0.8 thou/uL (1.20-3.40); #Monocytes 1.1 thou/uL (0.11-0.59); #Neutrophils 5.8 thou/uL (1.40-6.50); %Basophils 0.2 % (0.0-1.0); %Eosinophils 0.6 % (0.0-10.0); %Monocytes 14.3 % (0.0-10.0); %Neutrophils 74.9 % (42.0-75.0); Hemoglobin 9.9 g/dL (14.0-18.0); Mean Corpuscular HGB CONC 34.9 g/dL (32.0-36.0); Mean Corpuscular Hemoglobin 34.6 pg (27.0-31.0); Mean Corpuscular Volume 99.2 fL (78.0-98.0); Mean Platelet Volume 8.4 fL (7.4-10.4); Platelet Count 124 thou/uL (130-400); RBC Distribution Width 11.1 % (11.5-14.5); Red Blood Cell (RBC) Count 2.85 mill/uL (4.70-6.10); White Blood Cell (WBC) Count 7.8 thou/uL (4.8-10.8)
[2019-04-24] MEDS: Acetaminophen 1,000 MG in Premix Bag 1 BAG IVPB PRN (04:45)
[2019-04-24 04:48] LABS: Anion Gap 10 mmol/L (10-20); BUN (Urea Nitrogen) 23 mg/dL (8.4-25.7); Calc. Creatinine Clearance 92 mL/min (70-130); Calcium 8.4 mg/dL (7.8-10.44); Carbon Dioxide 27 mmol/L (23-31); Chloride 100 mmol/L (98-107); Estimated GFR-MDRD Greater than 90; Glucose 175 mg/dL (80-115); Potassium 3.3 mmol/L (3.5-5.1); Sodium 134 mmol/L (136-145)
[2019-04-24] MEDS: Clindamycin/D5W 900 MG in Premix Bag 1 BAG IVPB SCH ×3 (05:24→21:35)
[2019-04-24] MEDS: Amlodipine 5 MG TAB PO SCH (08:55)
[2019-04-24] MEDS: Carvedilol 3.125 MG TAB PO SCH ×2 (08:55→16:06)
[2019-04-24] MEDS: Pantoprazole 40 MG VIAL IVP SCH (08:56)
[2019-04-24] MEDS: Sodium Chloride 0.9% (PF) 10 ML VIAL FS PRN (08:56)
--- NOTE | 2019-04-24 08:56 | PRG ---
DATE OF SERVICE: 04/24/2019 SUBJECTIVE: This morning, he is awake, alert, responsive, less short of breath. He is verbalizing more. He is not moving his left side. OBJECTIVE: VITAL SIGNS: Blood pressure 132/81, pulse 70, respiratory rate 18, sats 93% on room air. He is afebrile. CHEST: Decreased breath sounds. No wheezing. CARDIAC: Normal S1, S2. No gallops. ABDOMEN: No masses. LABORATORY DATA: Sodium 134, glucose 168. X-ray shows slight CHF. White count 7000. Cultures are negative. IMPRESSION: 1. Status post craniotomy, intracerebral hemorrhage. 2. Slight fluid overload. 3. Hypernatremia, resolved. 4. Benign prostatic hyperplasia. 5. Hypertension. [facility] be [facility] [place] and are in the process of making arrangements. Speech will see him again tomorrow, reassess his swallowing study. PT, supportive care. Job ID: [id number]
--- NOTE | 2019-04-24 08:57 | PRG ---
DATE OF SERVICE: 04/24/2019 Mr. Damico is postoperative day 3 following his right-sided frontal craniectomy. He is alert and follows commands briskly in the right side. He is hemiplegic on the left side, but he again attends the examiner and appears to be neurologically stable. He did have ultrasound of the lower extremities yesterday, which was negative for DVT. He did have a fever of 103 degrees Fahrenheit yesterday evening and cultures were obtained along with chest x-ray. There was concern of aspiration pneumonia. His drain output from the subgaleal space has been scant as such we will remove this. He is already on broad-spectrum antibiotics. Finally, I should note his sodium has improved to 134. I updated his family yesterday and very pleased at this point with how he is doing. Job ID: [id number]
--- NOTE | 2019-04-24 10:38 | RAD ---
CHEST 1 VIEW: Date: 04/24/19 INDICATION: Daily CCU examination. COMPARISON: Prior exam dated 04/23/19. FINDINGS: Gastric catheter unchanged. Cardiomegaly, pulmonary vascular congestion, and perihilar edema stable. Bilateral pleural effusions are similar appearing. No pneumothorax is demonstrated. IMPRESSION: Stable exam. POS: BH
[2019-04-24] MEDS ORDERED: Furosemide 40 MG/4 ML VIAL SLOW IVP SCH (11:15)
--- NOTE | 2019-04-24 11:52 | PRG ---
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 His CVA was complicated by increased intracranial pressure and he underwent a craniotomy. We are following him up for his acute hyponatremia, which has been slowly improving. Today, it is 134 at its best value. His blood pressure is still a little high. In addition, chest x-ray still shows some degree of CHF. No acute complaints. OBJECTIVE: VITAL SIGNS: Blood pressure is 156/80, heart rate 84, respiratory rate 23, and pulse ox 97%. GENERAL: The patient is awake, extubated, sitting, not in distress. SKIN: Adequate turgor. HEENT: He has had a pinkish conjunctivae. Anicteric sclerae. NECK: No neck mass. No carotid bruits. No JVD. CHEST: No deformities. LUNGS: Decreased breath sounds. HEART: Normal sinus rhythm. No murmur. No gallops. No rubs. ABDOMEN: Globular, soft, and nontender. No masses. EXTREMITIES: No edema. No deformities. NEUROLOGIC: The patient is awake and follows simple commands. Left-sided weakness. MEDICATIONS: Medications of April 24, 2019, was reviewed. LABORATORY DATA: Laboratories of April 24, 2019, white count 7.8 and hemoglobin 9.9. Sodium 134, potassium is 3.3, chloride 100, carbon dioxide 27, BUN 23, creatinine 0.79, calcium 8.4, and glucose 175. ASSESSMENT AND PLAN: 1. Status post cerebrovascular accident/intracranial bleed - status post craniotomy, stable. Neurosurgery is following. Mentation is improving. 2. Acute hyponatremia - much improved. Serum sodium is now 134. The etiology is multifactorial. This patient has also evidence of CHF by x-ray. a. Dilutional hyponatremia may also be contributing. We will give again Lasix 40 mg IV x1 dose today. 3. Mild hypokalemia. KCl 20 mEq IV to be given. Overall prognosis remains guarded. Agree with current management. The patient's family requesting to be transferred to [place] for neuro rehab. Job ID: [id number]
[2019-04-24] MEDS: HYDROcodone/Acetaminophen 5/325 mg Tablet PO PRN ×2 (11:55→17:04)
[2019-04-24] MEDS ORDERED: Potassium Chloride 20 MEQ in Premix Bag 1 BAG IVPB SCH (12:00)
[2019-04-24] MEDS ORDERED: cloNIDine 0.1mg/24 Hour PATCH TD SCH (12:00)
--- NOTE | 2019-04-24 14:41 | PDOC.HOSPP ---
- Subjective Subjective: is sitting in neurochair at bedside not in distress, responds minimally to verbal stimuli is seen moving right upper and lower extre - Objective Vital Signs & Weight: Vital Signs (12 hours) Temp Pulse BP Pulse Ox 04/24/19 10:54 84 156/80 H 04/24/19 08:55 81 138/71 04/24/19 08:00 99.1 F 97 04/24/19 06:00 98.4 F 04/24/19 04:10 76 146/74 H 04/24/19 03:02 76 147/64 H 04/24/19 03:00 98.5 F Weight Admit Weight 132 lb 4.438 oz Weight 144 lb 2.917 oz Most Recent Monitor Data Heart Rate from ECG 82 NIBP 127/71 NIBP BP-Mean 89 Respiration from ECG 17 SpO2 100 I&O: 04/23/19 04/24/19 04/25/19 06:59 06:59 06:59 Intake Total 2007.2 1966.5 100 Output Total 2655 2643 735 Balance -647.8 -676.5 -635 Result Diagrams: 04/24/19 03:56 04/24/19 03:30 Additional Labs: Accuchecks 04/24/19 04:12 POC Glucose 168 H ROS - Review of Systems All systems: All other ROS were reviewed and found negative. - Medication Medications: Active Medications Generic Name Dose Route Start Last Admin Trade Name Freq PRN Reason Stop Dose Admin Acetaminophen 650 mg 04/18/19 18:08 04/23/19 15:01 Tylenol PO 650 mg Q6H PRN Administration Fever > 101 or Headache Acetaminophen 650 mg 04/21/19 17:02 04/22/19 16:00 Tylenol [place] 650 mg Q4H PRN Administration TEMPERATURE Hydrocodone Bitart/Acetaminophen 1 tab 04/24/19 08:41 04/24/19 11:55 [place] 5/325 PO 1 tab Q4H PRN Administration Breakthrough Pain Amlodipine Besylate 5 mg 04/23/19 09:00 04/24/19 08:55 Norvasc PO 5 mg DAILY PAULA Administration Carvedilol 3.125 mg 04/23/19 17:00 04/24/19 08:55 Coreg PO 3.125 mg BID-WM PAULA Administration Clonidine 0.1 mg 04/24/19 12:00 04/24/19 11:50 Idiamacu-Yld-2 Patch TD 0.1 mg Q7D PAULA Administration Hydralazine HCl 10 mg 04/20/19 13:13 04/24/19 04:10 Apresoline SLOW IVP 10 mg Q4H PRN Administration for SBP > 140. Hydralazine HCl 10 mg 04/20/19 14:24 04/22/19 09:27 Apresoline SLOW IVP 10 mg Q2H PRN Administration SBP>140 Clindamycin Phosphate/Dextrose 50 mls @ 100 mls/hr 04/21/19 14:00 04/24/19 05 :24 900 mg/ Device IVPB 50 mls Q8HR PAULA Administration Nicardipine HCl 50 mg/ Sodium 250 mls @ 0 mls/hr 04/22/19 16:00 04/22/19 19: 59 Chloride IVPB 250 mls INF PAULA Administration Protocol Titrate Acetaminophen 1,000 mg/ Device 100 mls @ 400 mls/hr 04/23/19 16:07 04/24/19 04:45 IVPB 04/24/19 16:08 100 mls Q6H PRN Administration Fever/Mild Pain Potassium Chloride 20 meq/ 100 mls @ 25 mls/hr 04/24/19 12:00 04/24/19 11:50 Device IVPB 04/24/19 15:59 100 mls 1200 PAULA Administration Insulin Human Lispro 0 units 04/23/19 08:53 04/24/19 04:12 Humalog SC 2 unit .MILD SLIDING SCALE PRN Administration Mild Correctional Scale Labetalol HCl 20 mg 04/22/19 12:55 04/24/19 10:54 Normodyne SLOW IVP 20 mg Q4H PRN Administration for SBP > 140. Morphine Sulfate 2 mg 04/18/19 21:10 04/23/19 23:46 Morphine SLOW IVP 2 mg Q2H PRN Administration Severe Pain (7-10) Ondansetron HCl 4 mg 04/18/19 19:22 04/20/19 18:22 Zofran IVP 4 mg Q6H PRN Administration Nausea/Vomiting Pantoprazole Sodium 40 mg 04/22/19 09:00 04/24/19 08:56 Protonix IVP 40 mg DAILY PAULA Administration Sodium Chloride 10 ml 04/18/19 18:08 04/20/19 08:50 Flush - Normal Saline IVF 10 ml PRN PRN Administration Saline Flush Sodium Chloride 10 ml 04/22/19 09:00 04/24/19 08:56 Normal Saline Pf FS 10 ml PRN PRN Administration RECONSTITUTION Tamsulosin HCl 0.4 mg 04/20/19 21:00 04/23/19 20:59 Flomax PO 0.4 mg HS PAULA Administration - Exam ill appearing Eye: PERRL, anicteric sclera ENT: normocephalic atraumatic, moist mucosa Neck: supple, no JVD Heart: RRR, no murmur Respiratory: CTAB, no rales Gastrointestinal: soft, non-tender, normal bowel sounds Extremities: no cyanosis, no edema Neurological: hemiplegia (left) Hosp A/P (1) Intracranial hemorrhage Code(s): I62.9 - NONTRAUMATIC INTRACRANIAL HEMORRHAGE, UNSPECIFIED Status: Acute (2) Subarachnoid hemorrhage Code(s): I60.9 - NONTRAUMATIC SUBARACHNOID HEMORRHAGE, UNSPECIFIED Status: Acute (3) Left hemiparesis Code(s): G81.94 - HEMIPLEGIA, UNSPECIFIED AFFECTING LEFT NONDOMINANT SIDE Status: Acute (4) Headache Code(s): R51 - HEADACHE Status: Acute Qualifiers: Headache chronicity pattern: acute headache Intractability: intractable (5) BPH (benign prostatic hyperplasia) Code(s): N40.0 - BENIGN PROSTATIC HYPERPLASIA WITHOUT LOWER URINRY TRACT SYMP Status: Chronic Qualifiers: Lower urinary tract symptom presence: symptoms present (6) GERD (gastroesophageal reflux disease) Code(s): K21.9 - GASTRO-ESOPHAGEAL REFLUX DISEASE WITHOUT ESOPHAGITIS Status: Chronic Qualifiers: Esophagitis presence: esophagitis presence not specified Qualified Code(s) : K21.9 - Gastro-esophageal reflux disease without esophagitis (7) HTN (hypertension) Code(s): I10 - ESSENTIAL (PRIMARY) HYPERTENSION Status: Acute Qualifiers: Hypertension type: essential hypertension Qualified Code(s): I10 - Essential (primary) hypertension - Plan sleeps for the most part, respons to verbal questions, not fully oriented moves right extremities has ng tube for medications and glucerna sbp around 130's, off cardene drip is on clonidine tts, coreg, norvasc, clindamycin, protonix, flomax further imaging studies per nsx adv speech to evaluate him, ?peg in 48hrs if he does not wake up or fails swallow poppy d/w at bedside is on humalog coverage, will add low dose basal insulin, now he is on glucerna via ng tube hold levemir if his ng feeding is held is around 12 pounds positive from admission, diuresed well on with lasix
[2019-04-24] MEDS: Acetaminophen 325 MG TAB PO PRN (16:06)
[2019-04-24] MEDS: Insulin Glargine 8 UNITS in Pre-Filled Syringe 1 EACH SC SCH (21:34)
[2019-04-24] MEDS: Tamsulosin HCl 0.4 MG CAP PO SCH (21:34)
[2019-04-24 23:18] LABS: Anion Gap 11 mmol/L (10-20); BUN (Urea Nitrogen) 25 mg/dL (8.4-25.7); Calc. Creatinine Clearance 91 mL/min (70-130); Calcium 8.4 mg/dL (7.8-10.44); Carbon Dioxide 27 mmol/L (23-31); Chloride 97 mmol/L (98-107); Estimated GFR-MDRD Greater than 90; Glucose 168 mg/dL (80-115); Potassium 3.5 mmol/L (3.5-5.1); Sodium 131 mmol/L (136-145)
[2019-04-25] MEDS: hydrALAZINE 20 MG/ML VIAL SLOW IVP PRN (00:09)
[2019-04-25] MEDS: Labetalol HCl 100 MG/20 ML VIAL SLOW IVP PRN (02:32)
[2019-04-25] MEDS: Acetaminophen 325 MG TAB PO PRN (04:17)
[2019-04-25] MEDS: HumaLOG 300 UNITS/3 ML VIAL SC PRN (04:28)
[2019-04-25 04:33] LABS: #Eosinphils 0.1 thou/uL (0.0-0.7); #Monocytes 1.1 thou/uL (0.11-0.59); #Neutrophils 5.6 thou/uL (1.40-6.50); %Basophils 0.1 % (0.0-1.0); %Eosinophils 0.9 % (0.0-10.0); %Lymphocytes 12.9 % (21.0-51.0); %Monocytes 13.7 % (0.0-10.0); %Neutrophils 72.3 % (42.0-75.0); Mean Corpuscular HGB CONC 34.4 g/dL (32.0-36.0); Mean Corpuscular Hemoglobin 34.1 pg (27.0-31.0); Mean Corpuscular Volume 99.3 fL (78.0-98.0); Mean Platelet Volume 8.2 fL (7.4-10.4); Platelet Count 154 thou/uL (130-400); RBC Distribution Width 11.3 % (11.5-14.5); Red Blood Cell (RBC) Count 2.93 mill/uL (4.70-6.10); White Blood Cell (WBC) Count 7.7 thou/uL (4.8-10.8)
[2019-04-25 04:50] LABS: Anion Gap 12 mmol/L (10-20); BUN (Urea Nitrogen) 25 mg/dL (8.4-25.7); Calc. Creatinine Clearance 91 mL/min (70-130); Calcium 8.4 mg/dL (7.8-10.44); Carbon Dioxide 25 mmol/L (23-31); Chloride 99 mmol/L (98-107); Estimated GFR-MDRD Greater than 90; Glucose 150 mg/dL (80-115); Potassium 3.7 mmol/L (3.5-5.1); Sodium 132 mmol/L (136-145)
[2019-04-25] MEDS: Clindamycin/D5W 900 MG in Premix Bag 1 BAG IVPB SCH ×3 (06:10→21:33)
--- NOTE | 2019-04-25 07:47 | PRG ---
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 He had an uneventful weekend. Neurologically, he has been stable over the last 48+ hours. He has been alert and oriented. He has been sitting up in a neuro chair periodically. He follows commands well with the right side. He is densely hemiparetic hemiplegic on the left side. He has an NG tube in place through which he is receiving his nutrition. Today, he will undergo formal speech evaluation for swallow. His blood pressures have been within an acceptable range. His sodiums have been within the low 130s, which at this point in time is also acceptable. His drain was removed yesterday due to low output. His incisions remain intact and without concern. I am pleased with his progress over the last 2 to 3 days. He and I discussed again PT and OT as well as inpatient rehab. He and his family are inclined to go to a [facility] in [place]. We should work diligently to establish that relationship for him. Once he reaches a point where he can leave the ICU, he could at any point in time discharged to inpatient rehab. Job ID: [id number]
[2019-04-25] MEDS: Pantoprazole 40 MG VIAL IVP SCH (08:58)
[2019-04-25] MEDS: Carvedilol 3.125 MG TAB PO SCH ×2 (08:58→17:13)
[2019-04-25] MEDS: Amlodipine 5 MG TAB PO SCH (08:58)
[2019-04-25] MEDS: Sodium Chloride 0.9% (PF) 10 ML VIAL FS PRN (08:59)
--- NOTE | 2019-04-25 09:04 | PRG ---
DATE OF SERVICE: 04/25/2019 SUBJECTIVE: This morning, he is awake, alert, and responsive. Still left-sided hemiparesis. OBJECTIVE: VITAL SIGNS: Saturations are 97% on room air, blood pressure 140/65 , respirations 18, and afebrile. I's and O's are slightly negative. CHEST: Decreased breath sounds. Minimal rhonchi. CARDIAC: Normal S1 and S2. No gallops. ABDOMEN: No masses. LABORATORY DATA: Sodium is 132. White count 7000, H and H _stable_. ASSESSMENT: 1. Respiratory failure. 2. Fluid overload. 3. Hyponatremia. 4. Intracerebral hemorrhage, status post craniotomy. PLAN: Plan go to [facility], [employer] is working on it. Continue supportive care, empiric antibiotics. I have added some neb treatments to his present regime. He fails a swallow test. He is going to require a PEG. Job ID: [id number] MTDD
--- NOTE | 2019-04-25 09:15 | PRG ---
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 He has also undergone a craniotomy to relieve increased cerebral pressure. We are following up for his acute hyponatremia. Serum sodium has been stable and running in the 130s. The patient voices no new complaints today. OBJECTIVE: VITAL SIGNS: Blood pressure 135/64, heart rate 90, respiratory rate 21, and pulse ox 100%. GENERAL: He is awake and follows simple commands, not in distress. He is eating. HEENT: Pinkish conjunctivae. Anicteric sclerae. NECK: No neck mass. No carotid bruits. No JVD. CHEST: No deformities. LUNGS: Clear breath sounds. HEART: Normal sinus rhythm. No murmur. No gallops. No rubs. ABDOMEN: Globular, soft, and nontender. No masses. EXTREMITIES: No edema. No deformities. NEUROLOGIC: Decreased motor, left side. MEDICATIONS: Medications of April 25, 2019, was reviewed. LABORATORY DATA: Laboratories of April 25, 2019; sodium was 132, potassium 3.7, chloride 99, carbon dioxide 25, BUN 25, creatinine 0.78, glucose 150, and calcium 8.4. White count 7.7 and hemoglobin 10. ASSESSMENT AND PLAN: 1. Acute hyponatremia, stabilizing serum sodium. Serum sodium 132 is acceptable. Continue current management. No indication for any hypertonic saline at the present time. Consider free water restriction with this patient. Please note, etiology is multifactorial - dilutional hyponatremia is also possible aggravating factor for the hyponatremia. Please note, he recently had a cerebrovascular accident and a possibility of syndrome of inappropriate antidiuretic hormone secretion remains with this patient. 2. Hypertension more adequately controlled. Continue current BP medications. 3. Status post cerebrovascular accident with craniotomy, doing well. Awaiting eventual transfer to the neurological rehab facility in [place]. Overall, prognosis remains guarded. Job ID: [id number]
--- NOTE | 2019-04-25 14:55 | PDOC.HOSPP ---
- Subjective Subjective: is more awake and alert this morning is sitting in neurochair interacts better today than before moves right extremities but not left, just a flicker of contraction over left LE - Objective Vital Signs & Weight: Vital Signs (12 hours) Temp Pulse Pulse Pulse Pulse Resp BP 04/25/19 13:11 69 20 04/25/19 11:44 71 78 89 04/25/19 08:58 70 158/75 H 04/25/19 08:00 99.6 F 04/25/19 06:39 04/25/19 04:00 101.0 F H BP BP BP Pulse Ox 04/25/19 13:11 97 04/25/19 11:44 154/85 H 162/85 H 139/106 H 04/25/19 08:58 04/25/19 08:00 98 04/25/19 06:39 97 04/25/19 04:00 Weight Admit Weight 132 lb 4.438 oz Weight 145 lb 8.081 oz Most Recent Monitor Data Heart Rate from ECG 72 NIBP 139/106 NIBP BP-Mean 117 Respiration from ECG 22 SpO2 98 I&O: 04/24/19 04/25/19 04/26/19 06:59 06:59 06:59 Intake Total 1966.5 1711 Output Total 2643 1861 350 Balance -676.5 -150 -350 Result Diagrams: 04/25/19 03:22 04/25/19 03:22 Additional Labs: Accuchecks 04/25/19 04/24/19 04:08 22:36 POC Glucose 156 H 164 H ROS - Review of Systems All systems: All other ROS were reviewed and found negative. - Medication Medications: Active Medications Generic Name Dose Route Start Last Admin Trade Name Freq PRN Reason Stop Dose Admin Acetaminophen 650 mg 04/18/19 18:08 04/25/19 04:17 Tylenol PO 650 mg Q6H PRN Administration Fever > 101 or Headache Acetaminophen 650 mg 04/21/19 17:02 04/22/19 16:00 Tylenol [place] 650 mg Q4H PRN Administration TEMPERATURE Hydrocodone Bitart/Acetaminophen 1 tab 04/24/19 08:41 04/24/19 17:04 [place] 5/325 PO 1 tab Q4H PRN Administration Breakthrough Pain Albuterol/Ipratropium 3 ml 04/25/19 12:30 04/25/19 13:11 Duoneb NEB 3 ml TID-RT PAULA Administration Amlodipine Besylate 5 mg 04/23/19 09:00 04/25/19 08:58 Norvasc PO 5 mg DAILY PAULA Administration Carvedilol 3.125 mg 04/23/19 17:00 04/25/19 08:58 Coreg PO 3.125 mg BID-WM PAULA Administration Clonidine 0.1 mg 04/24/19 12:00 04/24/19 11:50 Vzzttsul-Bky-4 Patch TD 0.1 mg Q7D PAULA Administration Hydralazine HCl 10 mg 04/20/19 13:13 04/25/19 00:09 Apresoline SLOW IVP 10 mg Q4H PRN Administration for SBP > 140. Hydralazine HCl 10 mg 04/20/19 14:24 04/22/19 09:27 Apresoline SLOW IVP 10 mg Q2H PRN Administration SBP>140 Clindamycin Phosphate/Dextrose 50 mls @ 100 mls/hr 04/21/19 14:00 04/25/19 14 :31 900 mg/ Device IVPB 50 mls Q8HR PAULA Administration Nicardipine HCl 50 mg/ Sodium 250 mls @ 0 mls/hr 04/22/19 16:00 04/22/19 19: 59 Chloride IVPB 250 mls INF PAULA Administration Protocol Titrate Insulin Glargine 8 units/ 0.08 mls @ 0 mls/hr 04/24/19 21:00 04/24/19 21:34 Miscellaneous Medication SC 0.08 mls HS PAULA Administration Insulin Human Lispro 0 units 04/23/19 08:53 04/25/19 04:28 Humalog SC 2 unit .MILD SLIDING SCALE PRN Administration Mild Correctional Scale Labetalol HCl 20 mg 04/22/19 12:55 04/25/19 02:32 Normodyne SLOW IVP 20 mg Q4H PRN Administration for SBP > 140. Morphine Sulfate 2 mg 04/18/19 21:10 04/23/19 23:46 Morphine SLOW IVP 2 mg Q2H PRN Administration Severe Pain (7-10) Ondansetron HCl 4 mg 04/18/19 19:22 04/20/19 18:22 Zofran IVP 4 mg Q6H PRN Administration Nausea/Vomiting Pantoprazole Sodium 40 mg 04/22/19 09:00 04/25/19 08:58 Protonix IVP 40 mg DAILY PAULA Administration Sodium Chloride 10 ml 04/18/19 18:08 04/20/19 08:50 Flush - Normal Saline IVF 10 ml PRN PRN Administration Saline Flush Sodium Chloride 10 ml 04/22/19 09:00 04/25/19 08:59 Normal Saline Pf FS 10 ml PRN PRN Administration RECONSTITUTION Tamsulosin HCl 0.4 mg 04/20/19 21:00 04/24/19 21:34 Flomax PO 0.4 mg HS PAULA Administration - Exam NAD, awake alert Eye: PERRL, anicteric sclera ENT: no oropharyngeal lesions, dry oral mucosa Neck: supple, no JVD Heart: RRR, no murmur Respiratory: no wheezes, no rales Gastrointestinal: soft, non-tender, normal bowel sounds Extremities: no clubbing, no edema Neurological: hemiplegia (left) Psychiatric: normal affect Hosp A/P (1) Intracranial hemorrhage Code(s): I62.9 - NONTRAUMATIC INTRACRANIAL HEMORRHAGE, UNSPECIFIED Status: Acute (2) Subarachnoid hemorrhage Code(s): I60.9 - NONTRAUMATIC SUBARACHNOID HEMORRHAGE, UNSPECIFIED Status: Acute (3) Left hemiparesis Code(s): G81.94 - HEMIPLEGIA, UNSPECIFIED AFFECTING LEFT NONDOMINANT SIDE Status: Acute (4) Headache Code(s): R51 - HEADACHE Status: Acute Qualifiers: Headache chronicity pattern: acute headache Intractability: intractable (5) BPH (benign prostatic hyperplasia) Code(s): N40.0 - BENIGN PROSTATIC HYPERPLASIA WITHOUT LOWER URINRY TRACT SYMP Status: Chronic Qualifiers: Lower urinary tract symptom presence: symptoms present (6) GERD (gastroesophageal reflux disease) Code(s): K21.9 - GASTRO-ESOPHAGEAL REFLUX DISEASE WITHOUT ESOPHAGITIS Status: Chronic Qualifiers: Esophagitis presence: esophagitis presence not specified Qualified Code(s) : K21.9 - Gastro-esophageal reflux disease without esophagitis (7) HTN (hypertension) Code(s): I10 - ESSENTIAL (PRIMARY) HYPERTENSION Status: Acute Qualifiers: Hypertension type: essential hypertension Qualified Code(s): I10 - Essential (primary) hypertension - Plan is off cardene from 48hrs, sbp around 130's on current meds via ng tube or tts has not cleared bedside speech eval will need modified ba swallow If neurorehab in [place] can check his swallow and get a peg if needed may dc if ok with other consultants I have reconciled meds for dc if needed continue coreg, norvasc, clonidine tts, protonix, flomax, clindamycin hemostable
--- NOTE | 2019-04-25 17:21 | PRG ---
DATE OF SERVICE: 04/25/2019 SUBJECTIVE: This is the patient I am seeing today in room C6 in the ICU of [facility]. He has been extubated over the weekend. He still has a Morales catheter in. His urine is clear. Looks like his blood pressure has been good. He is not tachycardic and he has had at most a low-grade temperature. He had a urine culture drawn on the that shows no growth at 48 hours. He is on Flomax. Looks like his blood pressure is okay. His white count this morning is normal at 7.7, his hemoglobin is 10. His creatinine is 0.78. I look into his notes and talking with one of the nurses in the ICU, it looks like their plan is to try to transfer this patient to [facility] as soon as the bed is available. I think if he is going to be transferred next day or so, just transfer him with a Morales catheter and they can give him a voiding trial there in the next few days. If he is going to end up being here for few more days, we will probably look around mid week to late week to look if we can give him a voiding trial here. I will follow along with you until he is transferred to [facility]. Job ID: [id number]
[2019-04-25] MEDS: Tamsulosin HCl 0.4 MG CAP PO SCH (21:32)
[2019-04-25] MEDS: Insulin Glargine 8 UNITS in Pre-Filled Syringe 1 EACH SC SCH (21:33)
[2019-04-26 04:51] LABS: #Eosinphils 0.1 thou/uL (0.0-0.7); #Monocytes 1.1 thou/uL (0.11-0.59); #Neutrophils 5.6 thou/uL (1.40-6.50); %Basophils 0.1 % (0.0-1.0); %Lymphocytes 12.5 % (21.0-51.0); %Monocytes 13.8 % (0.0-10.0); %Neutrophils 72.6 % (42.0-75.0); Hemoglobin 10.2 g/dL (14.0-18.0); Mean Corpuscular HGB CONC 33.9 g/dL (32.0-36.0); Mean Corpuscular Hemoglobin 33.7 pg (27.0-31.0); Mean Corpuscular Volume 99.4 fL (78.0-98.0); Mean Platelet Volume 8.2 fL (7.4-10.4); Platelet Count 188 thou/uL (130-400); RBC Distribution Width 11.4 % (11.5-14.5); Red Blood Cell (RBC) Count 3.03 mill/uL (4.70-6.10); White Blood Cell (WBC) Count 7.8 thou/uL (4.8-10.8)
[2019-04-26 05:10] LABS: Anion Gap 13 mmol/L (10-20); BUN (Urea Nitrogen) 22 mg/dL (8.4-25.7); Calc. Creatinine Clearance 92 mL/min (70-130); Calcium 8.3 mg/dL (7.8-10.44); Carbon Dioxide 24 mmol/L (23-31); Chloride 100 mmol/L (98-107); Estimated GFR-MDRD Greater than 90; Glucose 141 mg/dL (80-115); Potassium 4.1 mmol/L (3.5-5.1); Sodium 133 mmol/L (136-145)
[2019-04-26] MEDS: Clindamycin/D5W 900 MG in Premix Bag 1 BAG IVPB SCH ×3 (06:20→21:26)
[2019-04-26] MEDS: Sodium Chloride 0.9% (PF) 10 ML VIAL FS PRN (08:10)
[2019-04-26] MEDS: Carvedilol 3.125 MG TAB PO SCH (08:10)
[2019-04-26] MEDS: Amlodipine 5 MG TAB PO SCH (08:10)
[2019-04-26] MEDS: Pantoprazole 40 MG VIAL IVP SCH (08:10)
[2019-04-26] MEDS ORDERED: Amlodipine 5 MG TAB PO SCH ×2 (08:39→09:15)
[2019-04-26] MEDS ORDERED: Carvedilol 3.125 MG TAB PO SCH (08:45)
--- NOTE | 2019-04-26 08:59 | PRG ---
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 He follows commands with the right upper and right lower extremity briskly. He opens his eyes for me upon speaking. Skin flap is swollen and tense, but is still compressible and the incision is very well approximated. I do not see any incisional concern or skin flap concern at present. His speech is garbled and at times inappropriate. Frequently just saying yes to any question that I ask. He has failed a bedside swallow studies and as such is going down for a barium swallow study this morning to evaluate the possible necessity of PEG tube. His sodium is 133 this morning. Glucose is 141. Both of these will slowly be tightly controlled to prevent any further neurologic decline. From neurosurgical standpoint, he appears to be stabilized, but will again still need to be monitored as he is in a tenuous state at present. were tended to get him in with communication has been started, so we will need to determine if he will need a PEG tube or not for placement to be considered. Job ID: [id number]
--- NOTE | 2019-04-26 09:34 | PRG ---
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 He was seen by Neurosurgery. During the hospitalization, he underwent a craniotomy. We are following up this patient for his acute hyponatremia. No acute events, except the patient was a little bit more sleepy. For that reason, case was discussed with Dr. Aguirre and clonidine patch will be discontinued. OBJECTIVE: VITAL SIGNS: Blood pressure is 156/86, heart rate 72, respiratory rate 14, and temperature 99. GENERAL: The patient is sleepy, but arousable, not in overt distress. SKIN: Adequate turgor. HEENT: He has a pinkish conjunctivae. Anicteric sclerae. NECK: No neck mass. No carotid bruits. No JVD. CHEST: No deformities. LUNGS: Clear breath sounds. HEART: Normal sinus rhythm. No murmur. No gallops. No rubs. ABDOMEN: Globular, soft, and nontender. No masses. EXTREMITIES: No edema. MEDICATIONS: Medications of April 26, 2019, reviewed. LABORATORY DATA: Laboratories of April 26, 2019, white count 7.8 and hemoglobin 10.2. Sodium is 133, potassium 4.1, chloride 100, carbon dioxide 24, BUN 22, creatinine 0.78, glucose 141, and calcium 8.3. ASSESSMENT AND PLAN: 1. Acute hyponatremia - multifactorial etiology, much improved serum sodium. Most recent sodium is 133. Please note, his serum sodium has been fluctuating from 131 to 134 in the last several days. Continue current management. There is no indication for any hypertonic saline. I could not rule out the possibility of syndrome of inappropriate antidiuretic hormone secretion with this patient. 2. Status post cerebrovascular accident secondary to intracranial bleed - supportive care. The patient has undergone craniotomy to relieve the intracranial pressure. He has been doing stable from a neurosurgical point of view. 3. Hypertension. Continue current BP medications. Job ID: [id number]
--- NOTE | 2019-04-26 10:02 | PRG ---
DATE OF SERVICE: 04/26/2019 SUBJECTIVE: This morning, the patient is slightly more lethargic. It could be the Catapres that was discontinued. Failed a swallow test. He is going for a barium swallow this morning. OBJECTIVE: VITAL SIGNS: Blood pressure 156/86, pulse 72, respirations 18. CHEST: Decreased breath sounds. No wheezing. CARDIAC: Normal S1 and S2. No gallops. ABDOMEN: No masses. LABORATORY DATA: Unremarkable. Sodium is 133, stabilized. ASSESSMENT: 1. Hyponatremia, improved. 2. Intracerebral hemorrhage. 3. Left-sided cerebrovascular accident. 4. Benign prostatic hyperplasia. 5. Dysphagia. PLAN: We will try and do a swallow test. More than likely he is going to fail, he is going to need a PEG. I discussed with his . They made him a DNR as per his wishes. Antibiotics for 7 days. Thereafter, we will discontinue the antibiotic. I will increase his Coreg to twice a day 6.25. Job ID: [id number]
--- NOTE | 2019-04-26 10:30 | RAD ---
MODIFIED BARIUM SWALLOW: HISTORY: Dysphagia, following intracranial hemorrhage. Dysphagia, unspecified. Feeding difficulties. TECHNIQUE: In the presence of the speech pathologist, the patient was administered thin liquid and nectar thick, honey thick, and pudding consistencies. FINDINGS: There is evidence of penetration and aspiration with the thin liquid consistencies. There is prematu re spillage and pooling in the vallecula with the aforementioned consistencies. There is residue pre sent. IMPRESSION: Penetration and aspiration with thin liquid consistency. Please refer to the speech pathologist's re port for feeding recommendations. POS: OFF
--- NOTE | 2019-04-26 13:47 | PRG ---
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 He has been stable over the last several days neurologically and hemodynamically. He underwent a modified barium swallow today, which does show he is high risk for aspiration. He continues to have an indwelling NG tube, where he is receiving his nutrition currently. He is not on any IV drips currently for blood pressure control. His incision remained clean, dry, and intact. His exam is essentially unchanged as compared to yesterday and the day before. We are currently awaiting disposition decisions for inpatient rehab. They have indicated they can take patients with NG tubes. It would be Dr. 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 The hopes that he can improve swallow enough to safely swallow without placement of a PEG tube. As such, we will respect his wishes and not place a PEG tube at this time. At his request, he has been changed to do not resuscitate status. I do believe he is stable enough at this point in time that once accepted by rehab, he can be transferred there. His infectious workup has been negative to date with respect to cultures. Overall, I am pleased with his progress over the last several days as well as his relative stability neurologically. We will contact his , who is currently at home to update her and answer any questions she has as well. Job ID: [id number] [facility]
--- NOTE | 2019-04-26 14:13 | PRG ---
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 He remained extubated. He has stable vital signs. He has a Morales catheter still indwelling, draining clear urine. He speaks when spoken to. On exam, his penis, scrotum, and perineum without any abnormality with Morales catheter being in. PLAN: Leaving the Morales at this point for another few days. If he is transferred prior to that, he should go with a Morales and will let rehab physicians give him a voiding trial down the road at their facility. Job ID: [id number]
[2019-04-26] MEDS: hydrALAZINE 20 MG/ML VIAL SLOW IVP PRN ×2 (14:32→20:14)
[2019-04-26] MEDS: Acetaminophen 325 MG TAB PO PRN ×2 (16:20→22:04)
[2019-04-26] MEDS: Carvedilol 6.25 MG TAB PO SCH (16:20)
--- NOTE | 2019-04-26 16:56 | PDOC.HOSPP ---
- Subjective Subjective: pt awake able to move his right upper and lower ext - Objective Vital Signs & Weight: Vital Signs (12 hours) Temp Pulse Pulse Pulse Resp BP BP 04/26/19 16:20 153/76 H 04/26/19 14:32 78 162/76 H 04/26/19 14:05 84 76 149/89 H 04/26/19 13:43 78 19 04/26/19 12:00 98.5 F 04/26/19 10:34 72 156/86 H 04/26/19 10:32 72 166/92 H 04/26/19 08:10 72 156/86 H 04/26/19 08:00 98.4 F 04/26/19 07:45 72 14 BP Pulse Ox 04/26/19 16:20 04/26/19 14:32 04/26/19 14:05 155/85 H 04/26/19 13:43 04/26/19 12:00 04/26/19 10:34 04/26/19 10:32 04/26/19 08:10 04/26/19 08:00 100 04/26/19 07:45 Weight Admit Weight 132 lb 4.438 oz Weight 140 lb 14.006 oz Most Recent Monitor Data Heart Rate from ECG 89 NIBP 153/76 NIBP BP-Mean 101 Respiration from ECG 33 SpO2 99 I&O: 04/25/19 04/26/19 04/27/19 06:59 06:59 06:59 Intake Total 1711 1100 50 Output Total 1861 2260 1200 Balance -150 1160 -1150 Result Diagrams: 04/26/19 04:05 04/26/19 04:05 Additional Labs: Accuchecks 04/26/19 04/26/19 04/26/19 16:28 12:08 04:13 POC Glucose 147 H 143 H 150 H 04/25/19 04/25/19 21:41 16:53 POC Glucose 136 H 143 H ROS - Review of Systems All systems: All other ROS were reviewed and found negative. Other: unable to obtain - Medication Medications: Active Medications Generic Name Dose Route Start Last Admin Trade Name Freq PRN Reason Stop Dose Admin Acetaminophen 650 mg 04/18/19 18:08 04/26/19 16:20 Tylenol PO 650 mg Q6H PRN Administration Fever > 101 or Headache Acetaminophen 650 mg 04/21/19 17:02 04/22/19 16:00 Tylenol [place] 650 mg Q4H PRN Administration TEMPERATURE Hydrocodone Bitart/Acetaminophen 1 tab 04/24/19 08:41 04/24/19 17:04 [place] 5/325 PO 1 tab Q4H PRN Administration Breakthrough Pain Albuterol/Ipratropium 3 ml 04/25/19 12:30 04/26/19 13:43 Duoneb NEB 3 ml TID-RT PAULA Administration Carvedilol 6.25 mg 04/26/19 17:00 04/26/19 16:20 Coreg PO 6.25 mg BID-WM PAULA Administration Hydralazine HCl 10 mg 04/20/19 13:13 04/26/19 14:32 Apresoline SLOW IVP 10 mg Q4H PRN Administration for SBP > 140. Hydralazine HCl 10 mg 04/20/19 14:24 04/22/19 09:27 Apresoline SLOW IVP 10 mg Q2H PRN Administration SBP>140 Clindamycin Phosphate/Dextrose 50 mls @ 100 mls/hr 04/21/19 14:00 04/26/19 14 :23 900 mg/ Device IVPB 50 mls Q8HR PAULA Administration Nicardipine HCl 50 mg/ Sodium 250 mls @ 0 mls/hr 04/22/19 16:00 04/22/19 19: 59 Chloride IVPB 250 mls INF PAULA Administration Protocol Titrate Insulin Glargine 8 units/ 0.08 mls @ 0 mls/hr 04/24/19 21:00 04/25/19 21:33 Miscellaneous Medication SC 0.08 mls HS PAULA Administration Insulin Human Lispro 0 units 04/23/19 08:53 04/25/19 04:28 Humalog SC 2 unit .MILD SLIDING SCALE PRN Administration Mild Correctional Scale Labetalol HCl 20 mg 04/22/19 12:55 04/25/19 02:32 Normodyne SLOW IVP 20 mg Q4H PRN Administration for SBP > 140. Morphine Sulfate 2 mg 04/18/19 21:10 04/23/19 23:46 Morphine SLOW IVP 2 mg Q2H PRN Administration Severe Pain (7-10) Ondansetron HCl 4 mg 04/18/19 19:22 04/20/19 18:22 Zofran IVP 4 mg Q6H PRN Administration Nausea/Vomiting Pantoprazole Sodium 40 mg 04/22/19 09:00 04/26/19 08:10 Protonix IVP 40 mg DAILY PAULA Administration Sodium Chloride 10 ml 04/18/19 18:08 04/20/19 08:50 Flush - Normal Saline IVF 10 ml PRN PRN Administration Saline Flush Sodium Chloride 10 ml 04/22/19 09:00 04/26/19 08:10 Normal Saline Pf FS 10 ml PRN PRN Administration RECONSTITUTION Tamsulosin HCl 0.4 mg 04/20/19 21:00 04/25/19 21:32 Flomax PO 0.4 mg HS PAULA Administration - Exam Neck: negative: supple, symmetric, no JVD, no Thyromegaly, no lymphadenopathy, no carotid bruit, JVD Heart: negative: RRR, no murmur, no gallops, no rubs, normal peripheral pulses, irregular, diminshed peripheral pulses, murmur present, II/IV, III/IV Gastrointestinal: negative: soft, non-tender, non-distended, normal bowel sounds , no palpable masses, no hepatomegaly, no splenomegaly, no bruit, tender to palpation, distended, diminished bowl sounds, voluntary guarding Neurological: hemiplegia (left side) Hosp A/P (1) Intracranial hemorrhage Code(s): I62.9 - NONTRAUMATIC INTRACRANIAL HEMORRHAGE, UNSPECIFIED Status: Acute (2) HTN (hypertension) Code(s): I10 - ESSENTIAL (PRIMARY) HYPERTENSION Status: Acute Qualifiers: Hypertension type: essential hypertension Qualified Code(s): I10 - Essential (primary) hypertension (3) GERD (gastroesophageal reflux disease) Code(s): K21.9 - GASTRO-ESOPHAGEAL REFLUX DISEASE WITHOUT ESOPHAGITIS Status: Chronic Qualifiers: Esophagitis presence: esophagitis presence not specified Qualified Code(s) : K21.9 - Gastro-esophageal reflux disease without esophagitis - Plan pt had modified barium swallow and he was aspiration on thin liquids and has slow swallow. He will need to continue ng tube for now. His clonidine patch was discontinued since pt was lethargic. He is still on clindamycin will ask if can discontinue. I will order a UA. His bp meds have been titrated up. Awaiting approval to rehab.
[2019-04-26 17:17] LABS: Bilirubin Negative (Negative); Blood, Urine Negative (Negative); Clarity Turbid (Clear); Glucose, Urine (Dipstick) 150 mg/dL (Negative); Leukocyte Negative Leu/uL (Negative); Nitrite Negative (Negative); Protein, Urine (Dipstick) 10 mg/dL (Neg-Trace); Squamous Epithelial None Seen HPF (0-3); Urobilinogen Normal mg/dL (Less than 2); WBC/HPF 0-3 HPF (0-3)
[2019-04-26 17:27] LABS: Bacteria/HPF None Seen HPF (None Seen)
[2019-04-26 17:29] LABS: Urine Culture Reflex No No
[2019-04-26] MEDS: Tamsulosin HCl 0.4 MG CAP PO SCH (20:17)
[2019-04-26] MEDS: Labetalol HCl 100 MG/20 ML VIAL SLOW IVP PRN (21:18)
[2019-04-26] MEDS: Insulin Glargine 8 UNITS in Pre-Filled Syringe 1 EACH SC SCH (21:22)
[2019-04-27] MEDS: Labetalol HCl 100 MG/20 ML VIAL SLOW IVP PRN ×2 (02:34→13:07)
[2019-04-27 04:42] LABS: #Eosinphils 0.2 thou/uL (0.0-0.7); #Monocytes 1.3 thou/uL (0.11-0.59); #Neutrophils 7.5 thou/uL (1.40-6.50); %Basophils 0.1 % (0.0-1.0); %Eosinophils 1.7 % (0.0-10.0); %Lymphocytes 10.3 % (21.0-51.0); %Monocytes 12.7 % (0.0-10.0); %Neutrophils 75.2 % (42.0-75.0); Hemoglobin 11.1 g/dL (14.0-18.0); Mean Corpuscular HGB CONC 34.1 g/dL (32.0-36.0); Mean Corpuscular Hemoglobin 33.7 pg (27.0-31.0); Mean Corpuscular Volume 98.8 fL (78.0-98.0); Mean Platelet Volume 7.8 fL (7.4-10.4); Platelet Count 230 thou/uL (130-400); RBC Distribution Width 11.4 % (11.5-14.5)
[2019-04-27 05:10] LABS: Phosphorus 3.8 mg/dL (2.3-4.7)
[2019-04-27 05:14] LABS: Anion Gap 12 mmol/L (10-20); BUN (Urea Nitrogen) 23 mg/dL (8.4-25.7); Calc. Creatinine Clearance 89 mL/min (70-130); Calcium 8.8 mg/dL (7.8-10.44); Carbon Dioxide 23 mmol/L (23-31); Chloride 99 mmol/L (98-107); Estimated GFR-MDRD Greater than 90; Glucose 150 mg/dL (80-115); Magnesium 2.3 mg/dL (1.6-2.6); Potassium 4.7 mmol/L (3.5-5.1); Sodium 129 mmol/L (136-145)
[2019-04-27] MEDS: Clindamycin/D5W 900 MG in Premix Bag 1 BAG IVPB SCH ×2 (05:58→14:13)
[2019-04-27] MEDS: Acetaminophen 325 MG TAB PO PRN ×3 (06:10→21:25)
[2019-04-27] MEDS: Acetaminophen 650 MG Suppository PR PRN (06:10)
[2019-04-27] MEDS: hydrALAZINE 20 MG/ML VIAL SLOW IVP PRN ×2 (07:02→21:25)
[2019-04-27] MEDS: Pantoprazole 40 MG VIAL IVP SCH (08:03)
[2019-04-27] MEDS: Sodium Chloride 0.9% (PF) 10 ML VIAL FS PRN (08:03)
[2019-04-27] MEDS: Carvedilol 6.25 MG TAB PO SCH (08:03)
[2019-04-27] MEDS: Amlodipine 10 MG TAB PO SCH (08:04)
[2019-04-27] MEDS ORDERED: Laxative Of Choice PO PRN (08:42)
--- NOTE | 2019-04-27 09:01 | PRG ---
DATE OF SERVICE: 04/27/2019 SUBJECTIVE: This morning, he is awake, alert, responsive, very appropriate. He is still having issues with swallowing. He would like to take his NG tube out. Unfortunately, he failed the swallow test. OBJECTIVE: VITAL SIGNS: Blood pressure 134/70, pulse 83, respiratory rate 26, temperature 98.4. CHEST: No wheezing or crackles. CARDIAC: Normal S1 and S2. No gallops. ABDOMEN: No masses. LABORATORY DATA: Sodium is 129. White count 10,000, H and H 11 and 32, platelet count 237. IMPRESSION: 1. Hypertension. 2. Intracerebral hemorrhage. 3. Dysphagia. PLAN: Plan to transfer him to [facility] today. Otherwise, no change in medication. He is going to receive a week of clindamycin and discontinue thereafter. Job ID: [id number] MTDD
--- NOTE | 2019-04-27 09:05 | PRG ---
DATE OF SERVICE: 04/27/2019 SUBJECTIVE: Mookie is a 63-year-old white male, who was admitted for CVA secondary to an intracranial bleed. In the interim, he has undergone craniotomy to relieve the intercerebral pressure. We are following this patient for his acute hyponatremia. Serum sodium has been stable. This morning, it was noted at 129, which is lower than his usual 130s. I have decided to add a sodium chloride tablet 1 g p.o. t.i.d. - by NGT. I do not think hypertonic saline is indicated at the present time. He is doing well with regard to his CVA. Awaiting placement to a neuro rehab facility in [place]. No acute events noted last night. OBJECTIVE: VITAL SIGNS: Blood pressure is 134/70, heart rate 83, respiratory rate 18, pulse ox 96%. GENERAL: The patient is awake, can follow simple commands. SKIN: Adequate turgor. HEENT: He has a pinkish conjunctivae. Anicteric sclerae. No neck mass. No carotid bruits. No JVD. CHEST: No deformities. LUNGS: Clear breath sounds. No wheezing. No crackles. HEART: Normal sinus rhythm. No murmur. No gallops. No rubs. ABDOMEN: Globular, soft, nontender, no masses. EXTREMITIES: No edema, no deformities. MEDICATIONS: Medications of April 27, 2019, was reviewed. LABORATORY DATA: Laboratories of April 27, 2019; white count 10, hemoglobin 11.1. Sodium 129, potassium 4.7, chloride 99, carbon dioxide 23, BUN 23, creatinine 0.78, calcium 8.8, and magnesium 2.3. ASSESSMENT AND PLAN: 1. Acute hyponatremia - serum sodium noted at 129, which is acceptable. I will add sodium chloride 1 g p.o. t.i.d. via NG tube. If needed, we can also give a 1 time dose of Lasix with this patient. No indication for any hypertonic saline. 2. Status post cerebrovascular accident from intracranial bleed, stable. Neurosurgery is following. Awaiting rehabilitation placement in [place]. Agree with current management. Job ID: [id number]
[2019-04-27] MEDS: Sodium Chloride 1 GM TAB PO SCH ×3 (10:14→21:33)
[2019-04-27] MEDS ORDERED: Polyethylene Glycol 3350 17 GM Packet PO PRN (10:15)
[2019-04-27] MEDS ORDERED: Milk Of Magnesia 30 ML UDCUP PO PRN (10:16)
--- NOTE | 2019-04-27 11:58 | CON ---
DATE OF CONSULTATION: 04/27/2019 REQUESTING PHYSICIAN: Lokesh Aguirre MD REASON FOR CONSULTATION: PEG tube placement. 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 He is normally seen by my GI colleague, Dr. Reno Aguilar. Dr. Damico was admitted to the hospital on 04/18/2019, presenting with acute severe headache, nausea, and vomiting. He was unfortunately found to have a massive intracranial hemorrhage. This progressed and he underwent right frontal craniectomy on 04/21. He has suffered some left-sided hemiparesis, urinary retention, and also oropharyngeal dysphagia. He has been getting feeds by nasogastric tube and tolerating these well. Yesterday, a modified barium swallow demonstrated edgar aspiration with liquids. This morning, the patient made the decision to proceed with PEG tube placement rather than continuing to get nasogastric feeds. Evidently, he is otherwise ready for transfer to his rehab facility. He has not had any prior abdominal surgeries. PAST MEDICAL HISTORY: 1. GERD. 2. Vasectomy. 3. Colon polyp. 4. Intracranial hemorrhage 04/18/2019. ALLERGIES: PENICILLIN AND SULFA. INPATIENT MEDICATIONS: 1. [place] p.r.n. 2. Tylenol p.r.n. 3. DuoNeb. 4. Norvasc. 5. Coreg. 6. Clindamycin 900 mg IV q.8 hours. 7. Hydralazine p.r.n. 8. Insulin sliding scale. 9. Labetalol p.r.n. 10. Levofloxacin 500 mg IV q.24 hours. 11. Milk of magnesia p.r.n. 12. Morphine p.r.n. 13. Zofran p.r.n. 14. Protonix 40 mg IV daily. 15. Flomax. SOCIAL HISTORY: The patient serves as a [employer]. Alcohol use is social. No smoking or drug use. FAMILY HISTORY: Noncontributory. PHYSICAL EXAMINATION: VITAL SIGNS: Temperature 99.3, pulse 89, blood pressure 159/80, and 99% oxygen saturation on room air. GENERAL: A 63-year-old man, sitting up in chair comfortably, in no distress. MENTAL: He is alert and oriented. He can answer questions. He is a bit somnolent, but easily arousable. SKIN: [place] from recent craniectomy look good. No scars to the anterior abdomen. No jaundice. No rashes were palpable. EYES: No scleral icterus. Extraocular movements intact. ENT: Mucous membranes moist. No oral lesions. Nasogastric tube to the right naris. LYMPH: No submandibular or supraclavicular lymphadenopathy. THYROID: Nontender to palpation. HEART: Regular rate and rhythm. LUNGS: Clear to auscultation bilaterally. ABDOMEN: Flat. Bowel sounds present. Soft and nontender to palpation. No surgical scars to the left upper quadrant. EXTREMITIES: No peripheral edema. VESSELS: Radial pulses 2+ bilaterally. NEURO: The patient has left hemiparesis. LABORATORY STUDIES: WBC 10.0, hemoglobin 11.1, and platelets 230. INR 1.0. Sodium 129, potassium 4.7, BUN 23, creatinine 0.78, calcium 8.8, phosphorus 3.8, and magnesium 2.3. ASSESSMENT AND PLAN: 1. Oropharyngeal dysphagia. 2. Recent hemorrhagic stroke. I discussed the risks and benefits of percutaneous endoscopic gastrostomy tube placement with the patient and his brother today. The patient is well aware of all the issues and desires to proceed. We discussed the risks of the procedure would include anesthesia risk, infection, bleeding, perforation, failure to place PEG or surgery. We will plan for PEG tube placement tomorrow. Please hold the tube feeds at midnight. Thank you for the consultation. Please call anytime with questions or concerns. Job ID: [id number]
[2019-04-27 12:20] VITALS: BMI 22.6
[2019-04-27] MEDS ORDERED: Carvedilol 6.25 MG TAB PO SCH (13:15)
--- NOTE | 2019-04-27 13:16 | PDOC.HOSPP ---
- Subjective Subjective: pt up in chair texting on his phone. - Objective Vital Signs & Weight: Vital Signs (12 hours) Temp Pulse Resp BP Pulse Ox 04/27/19 08:04 83 134/70 04/27/19 08:03 134/70 04/27/19 08:00 99.3 F 96 04/27/19 07:40 88 26 H 04/27/19 07:02 85 145/70 H 04/27/19 04:00 98.7 F 04/27/19 02:34 85 151/73 H 04/27/19 02:21 94 L Weight Admit Weight 132 lb 4.438 oz Weight 136 lb 0.403 oz Most Recent Monitor Data Heart Rate from ECG 85 NIBP 156/76 NIBP BP-Mean 102 Respiration from ECG 18 SpO2 100 I&O: 04/26/19 04/27/19 04/28/19 06:59 06:59 06:59 Intake Total 1100 1561.1 150 Output Total 2260 2590 385 Balance -1160 -1028.9 -235 Result Diagrams: 04/27/19 04:17 04/27/19 04:17 Additional Labs: Accuchecks 04/27/19 04/26/19 04/26/19 11:28 21:23 16:28 POC Glucose 155 H 126 H 147 H 04/25/19 04/24/19 04/24/19 10:26 17:25 11:14 POC Glucose 144 H 162 H 149 H 04/23/19 04/23/19 04/23/19 23:44 16:16 10:45 POC Glucose 163 H 174 H 166 H ROS - Review of Systems All systems: All other ROS were reviewed and found negative. Respiratory: denies: cough, dry, shortness of breath, hemoptysis, SOB with excertion, pleuritic pain, sputum, wheezing, other Cardiovascular: denies: chest pain, palpitations, orthopnea, paroxysmal noc. dyspnea, edema, light headedness, other - Medication Medications: Active Medications Generic Name Dose Route Start Last Admin Trade Name Freq PRN Reason Stop Dose Admin Acetaminophen 650 mg 04/18/19 18:08 04/27/19 06:10 Tylenol PO 650 mg Q6H PRN Administration Fever > 101 or Headache Acetaminophen 650 mg 04/21/19 17:02 04/22/19 16:00 Tylenol HI 650 mg Q4H PRN Administration TEMPERATURE Hydrocodone Bitart/Acetaminophen 1 tab 04/24/19 08:41 04/24/19 17:04 [place] 5/325 PO 1 tab Q4H PRN Administration Breakthrough Pain Albuterol/Ipratropium 3 ml 04/25/19 12:30 04/27/19 07:40 Duoneb NEB 3 ml TID-RT PAULA Administration Amlodipine Besylate 10 mg 04/27/19 09:00 04/27/19 08:04 Norvasc PO 10 mg DAILY PAULA Administration Hydralazine HCl 10 mg 04/20/19 13:13 04/27/19 07:02 Apresoline SLOW IVP 10 mg Q4H PRN Administration for SBP > 140. Hydralazine HCl 10 mg 04/20/19 14:24 04/26/19 20:14 Apresoline SLOW IVP 10 mg Q2H PRN Administration SBP>140 Clindamycin Phosphate/Dextrose 50 mls @ 100 mls/hr 04/21/19 14:00 04/27/19 05 :58 900 mg/ Device IVPB 50 mls Q8HR PAULA Administration Nicardipine HCl 50 mg/ Sodium 250 mls @ 0 mls/hr 04/22/19 16:00 04/22/19 19: 59 Chloride IVPB 250 mls INF PAULA Administration Protocol Titrate Insulin Glargine 8 units/ 0.08 mls @ 0 mls/hr 04/24/19 21:00 04/26/19 21:22 Miscellaneous Medication SC 0.08 mls HS PAULA Administration Insulin Human Lispro 0 units 04/23/19 08:53 04/25/19 04:28 Humalog SC 2 unit .MILD SLIDING SCALE PRN Administration Mild Correctional Scale Labetalol HCl 20 mg 04/22/19 12:55 04/27/19 02:34 Normodyne SLOW IVP 20 mg Q4H PRN Administration for SBP > 140. Magnesium Hydroxide 30 ml 04/27/19 10:16 04/27/19 10:28 Milk Of Magnesium PO 30 ml BID PRN Administration Constipation Morphine Sulfate 2 mg 04/18/19 21:10 04/23/19 23:46 Morphine SLOW IVP 2 mg Q2H PRN Administration Severe Pain (7-10) Ondansetron HCl 4 mg 04/18/19 19:22 04/20/19 18:22 Zofran IVP 4 mg Q6H PRN Administration Nausea/Vomiting Pantoprazole Sodium 40 mg 04/22/19 09:00 04/27/19 08:03 Protonix IVP 40 mg DAILY PAULA Administration Sodium Chloride 10 ml 04/18/19 18:08 04/20/19 08:50 Flush - Normal Saline IVF 10 ml PRN PRN Administration Saline Flush Sodium Chloride 10 ml 04/22/19 09:00 04/27/19 08:03 Normal Saline Pf FS 10 ml PRN PRN Administration RECONSTITUTION Sodium Chloride 1 gm 04/27/19 09:00 04/27/19 10:14 Sodium Chloride PO 1 gm TID PAULA Administration Tamsulosin HCl 0.4 mg 04/20/19 21:00 04/26/19 20:17 Flomax PO 0.4 mg HS PAULA Administration - Exam Neck: negative: supple, symmetric, no JVD, no Thyromegaly, no lymphadenopathy, no carotid bruit (left side paralysis), JVD Heart: negative: RRR, no murmur, no gallops, no rubs, normal peripheral pulses, irregular, diminshed peripheral pulses, murmur present, II/IV, III/IV Respiratory: negative: CTAB, no wheezes, no rales, no ronchi, normal chest expansion, no tachypnea, normal percussion, rales, rhonchi, tachypneic, wheezes Hosp A/P (1) Intracranial hemorrhage Code(s): I62.9 - NONTRAUMATIC INTRACRANIAL HEMORRHAGE, UNSPECIFIED Status: Acute (2) HTN (hypertension) Code(s): I10 - ESSENTIAL (PRIMARY) HYPERTENSION Status: Acute Qualifiers: Hypertension type: essential hypertension Qualified Code(s): I10 - Essential (primary) hypertension (3) GERD (gastroesophageal reflux disease) Code(s): K21.9 - GASTRO-ESOPHAGEAL REFLUX DISEASE WITHOUT ESOPHAGITIS Status: Chronic Qualifiers: Esophagitis presence: esophagitis presence not specified Qualified Code(s) : K21.9 - Gastro-esophageal reflux disease without esophagitis - Plan will increase his coreg to 25mg bid. will ask NS if pt still needs to be on clindamycin. Ua negative. pt to be evaluated for peg. possible discharge in am.
[2019-04-27] MEDS ORDERED: Saccharomyces boulardii 250 MG CAP PO SCH (13:30)
--- NOTE | 2019-04-27 15:45 | EKG ---
Test Reason : HEADACHE Blood Pressure : / mmHG Vent. Rate : 090 BPM Atrial Rate : 090 BPM P-R Int : 162 ms QRS Dur : 076 ms QT Int : 356 ms P-R-T Axes : 073 050 047 degrees QTc Int : 435 ms Normal sinus rhythm Possible Left atrial enlargement Borderline ECG Confirmed by DEN GUADARRAMA MD ([id number]), photography editor LIUDMILA MUÑOZ ([id number]) on 04/27/2019 3:45:07 PM Referred By: Maureen GUADARRAMA Confirmed By:DEN GUADARRAMA MD
[2019-04-27] MEDS ORDERED: Lisinopril 10 MG TAB PO SCH (17:00)
[2019-04-27] MEDS: Carvedilol 25 MG TAB PO SCH (17:36)
[2019-04-27] MEDS: Tamsulosin HCl 0.4 MG CAP PO SCH (21:25)
[2019-04-27] MEDS: Insulin Glargine 8 UNITS in Pre-Filled Syringe 1 EACH SC SCH (21:33)
[2019-04-28] MEDS: Labetalol HCl 100 MG/20 ML VIAL SLOW IVP PRN ×2 (00:44→04:32)
[2019-04-28] MEDS: Acetaminophen 325 MG TAB PO PRN ×2 (03:05→20:30)
[2019-04-28] MEDS: hydrALAZINE 20 MG/ML VIAL SLOW IVP PRN (03:05)
[2019-04-28 03:51] LABS: #Basophils 0.1 thou/uL (0.0-0.2); #Eosinphils 0.1 thou/uL (0.0-0.7); #Lymphocytes 1.6 thou/uL (1.20-3.40); #Monocytes 1.7 thou/uL (0.11-0.59); #Neutrophils 12.6 thou/uL (1.40-6.50); %Basophils 0.3 % (0.0-1.0); %Eosinophils 0.9 % (0.0-10.0); %Lymphocytes 10.1 % (21.0-51.0); %Monocytes 10.7 % (0.0-10.0); Hemoglobin 11.7 g/dL (14.0-18.0); Mean Corpuscular HGB CONC 34.2 g/dL (32.0-36.0); Mean Corpuscular Hemoglobin 33.6 pg (27.0-31.0); Mean Corpuscular Volume 98.2 fL (78.0-98.0); Mean Platelet Volume 7.5 fL (7.4-10.4); Platelet Count 305 thou/uL (130-400); RBC Distribution Width 11.5 % (11.5-14.5); Red Blood Cell (RBC) Count 3.48 mill/uL (4.70-6.10); White Blood Cell (WBC) Count 16.1 thou/uL (4.8-10.8)
[2019-04-28 04:07] LABS: Anion Gap 13 mmol/L (10-20); BUN (Urea Nitrogen) 23 mg/dL (8.4-25.7); Calc. Creatinine Clearance 87 mL/min (70-130); Carbon Dioxide 22 mmol/L (23-31); Chloride 99 mmol/L (98-107); Estimated GFR-MDRD Greater than 90; Glucose 147 mg/dL (80-115); Potassium 4.6 mmol/L (3.5-5.1); Sodium 129 mmol/L (136-145)
--- NOTE | 2019-04-28 07:58 | PRG ---
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 He does have a fluctuating course of alertness, which is consistent with his underlying injury. I spoke with Dr. Aguilar last night, who plans on replacing a PEG tube this morning. 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 [facility] excepted him and we awaited on the insurance to make their decision. His incision remains clean, dry, and intact. From a cardiovascular and pulmonary perspective, he has been stable. Once disposition is definitively arranged, he can transfer at anytime. Job ID: [id number]
--- NOTE | 2019-04-28 08:30 | PRG ---
DATE OF SERVICE: 04/28/2019 SUBJECTIVE: This morning, he is awake, alert, and responsive. OBJECTIVE: VITAL SIGNS: Blood pressure 126/71, pulse 90, resp 16 afebrile_ CHEST: Decreased breath sounds. No wheezing. CARDIAC: Normal S1 and S2. No gallops. ABDOMEN: No masses. LABORATORY DATA: Sodium is 129. White count is 16,000. ASSESSMENT: Hypertension, intracerebral hemorrhage. PLAN: Blood pressure is well controlled. We are going to discontinue his antibiotics. I am going to try and avoid putting the patient on some RAYNA, because it maybe accounting for some of his hyponatremia. He is on adequate blood pressure medicine. Norvasc 10, Coreg 6.25. Continue supportive care, PT. Transfer to [facility]. Job ID: [id number] MTDD
[2019-04-28] MEDS: Pantoprazole 40 MG VIAL IVP SCH (08:51)
[2019-04-28] MEDS ORDERED: Saccharomyces boulardii 250 MG CAP PO SCH (09:00)
[2019-04-28] MEDS ORDERED: Lisinopril 10 MG TAB PO SCH (09:00)
--- NOTE | 2019-04-28 09:29 | PRG ---
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 Serum sodium is stable. He is now running about at 129. He initially was seen for serum sodium of 120. I have started him on sodium chloride tablet 1 g p.o. t.i.d. No other complaints today. He was evaluated by GI and the plan is to have a PEG tube placement. No acute events last night. OBJECTIVE: VITAL SIGNS: Blood pressure is 134/73, heart rate 91, respiratory rate 17, and pulse ox 99%. GENERAL: The patient is awake, alert, following commands, comfortable, not in distress. SKIN: Adequate turgor. HEENT: He has a pinkish conjunctivae. Anicteric sclerae. No neck mass. No carotid bruits. No JVD. CHEST: No deformities. LUNGS: Clear breath sounds. No wheezing. No crackles. HEART: Normal sinus rhythm. No murmur. No gallops. No rubs. ABDOMEN: Globular, soft, nontender. No masses. EXTREMITIES: No edema. No deformities. Positive for left-sided weakness. MEDICATIONS: Medications of April 28, 2019, reviewed. LABORATORY DATA: Of April 28, 2019; white count 16.1, hemoglobin 11.7, sodium 129, potassium 4.6, chloride 99, carbon dioxide 22, BUN 23, creatinine 0.77, glucose 147, and calcium 9.0. ASSESSMENT AND PLAN: 1. Acute hyponatremia, much improved. Most recent serum sodium is 129. Would suggest we do a free water restriction in the near future. In addition, continue sodium chloride tablet 1 g p.o. t.i.d. No indication for any hypertonic saline. 2. Status post cerebrovascular accident secondary to intracranial bleed with subsequent craniotomy. Doing well, stable, mentating adequately. 3. Aspiration - the patient failed the swallow study. Recommendation is for him to have a percutaneous endoscopic gastrostomy tube placement and place him on n.p.o. Overall, agree with current management. Awaiting rehab transfer. 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 I did discuss the case with his neurosurgeon. The concern was that the serum sodium was 129, especially with the recent CVA and cerebral edema that we should try to attempt to bring this to a higher number. For this reason, I will start him back on a 3% sodium chloride at 45 mL/h. In addition, I have ordered a repeat basic metabolic profile 2 hours after we initiate the 3% sodium chloride and adjust the frequency of the monitoring depending on the response. Job ID: [id number]
--- NOTE | 2019-04-28 10:03 | PDOC.PALCO ---
Palliative Care Consult - Consult Details Requesting Physician: Dr Aguirre Reason for Consult: family support Family Members Present: Niece, patient - Pertinent HPI Mr Damico is a 63 year old male who has had no previous significant medical concerns. Presented to the emergency room April 18 after a severe headache that lasted several hours and presented with no triggers and was not alleviated with any interventions at home. Nausea and vomiting was present with the headache. CT performed during emergency room evaluation identified an intracranial bleed with midline shift. Right frontal cranietomy performed and successful. Patient being transfered to [facility] for rehab. - Pertinent PMH History of reflux - Social History Smoking Status: Never smoker Smoking: no tobacco exposure Alcohol Use: occasional Drug Use History: none Living Situation: - Medications MAR Reviewed: Yes - Allergies Allergies/Adverse Reactions: Allergies Allergy/AdvReac Type Severity Reaction Status Date / Time Penicillins Allergy Intermediate Hives Verified 04/18/19 18:33 Sulfa (Sulfonamide Allergy Intermediate Hives Verified 04/18/19 18:34 Antibiotics) - Subjective Awake, alert with confusion. Soft speech limited to one or two words. At times patient responds with a nod or shake of his head. Flat affect. and Neice at bedside, awaiting approval for PEG tube placement and transfer to [facility]. ROS: Denies Headache, nausea/vomiting. Denies pain at present. Negative for cough, chest discomfort, abdominal discomfort. - Objective Vital Signs: Vital Signs - Most Recent Temp Pulse Resp BP Pulse Ox 98.2 F 94 20 154/73 H 100 04/28/19 08:00 04/28/19 07:08 04/28/19 07:08 04/28/19 04:32 04/27/19 20:00 Palliative Performance Scale: 30 - Physical Exam Constitutional: confusion HEENT: moist MMs, EOMI Respiratory: unlabored breathing Cardiovascular: RRR Deviation from normal: NG in blace to right nare Deviation from normal: Flat affect Skin: normal turgor - Problem List (1) Palliative care encounter Code(s): Z51.5 - ENCOUNTER FOR PALLIATIVE CARE Current Visit: Yes Status: Acute (2) Intracranial hemorrhage Code(s): I62.9 - NONTRAUMATIC INTRACRANIAL HEMORRHAGE, UNSPECIFIED Current Visit: Yes Status: Acute - Plan/Recommendations Plan: Felix Bunch RN has met with patient and his on several occasions. More somnolent , flat affect today as per Felix Bunch RN and . Niece also present today for support for patient and his . *PEG to be placed today, decision was carefully made by the patient. *Transfer to [facility] in [place] so patient can obtain highest functional status. *Patient and with support system. Niece here today with her parents. Wifes brother in [place] and will be also supporting patient and as they seek rehab from Intracranial bleed and subsequent deficits. Felix Bunch RN and Palliative Care Team will continue to provide support to the patient and . [40] minutes spent on this encounter with >50% of the time in counseling and coordination of care. Thank you for this very appropriate consult.
[2019-04-28] MEDS: Sodium Chloride 3% 500 ML IVPB SCH ×2 (10:42→22:09)
--- NOTE | 2019-04-28 12:57 | PRG ---
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 He has now been extubated for several days and continues to appear to improve cognitively. His speech is somewhat muffled and delayed. However, he is much more interactive and alert than he has been in previous days. His sodium is running a little bit lower at [address] I will touch base with case management at some point today to re-evaluate this process and see if we can . Otherwise, incision looks very well healing . Job ID: [id number]
[2019-04-28] MEDS ORDERED: Promethazine HCl 25 MG/ML VIAL IM PRN (14:02)
[2019-04-28] MEDS ORDERED: Morphine Sulfate 2 MG/ML SYRINGE SLOW IVP PRN (14:02)
[2019-04-28] MEDS ORDERED: Ondansetron HCl/PF 4 MG/2 ML Vial IVP PRN (14:02)
[2019-04-28] MEDS ORDERED: Promethazine HCl 25 MG/ML VIAL SLOW IVP PRN (14:02)
--- NOTE | 2019-04-28 14:56 | OP ---
DATE OF PROCEDURE: 04/28/2019 PROCEDURE PERFORMED: Esophagogastroduodenoscopy with percutaneous gastrostomy tube placement. INDICATION FOR PROCEDURE: Dysphagia, status post intracranial hemorrhage. DESCRIPTION OF PROCEDURE: After the risks and benefits of the procedure were explained to the patient including risks of bleeding, infection, perforation, reactions to anesthesia, aspiration and/or pain, informed consent was obtained. The patient was then taken to the endoscopy suite, where a deep sedation was administered via propofol and anesthesia support. Once adequate sedation was achieved, the standard gastroscope was introduced into the mouth with intubation of the esophagus, stomach, and the proximal small intestines with the findings listed below. Upon completion of the initial examination of the upper GI tract, using transillumination and one-to-one compression, a suitable site for PEG tube placement was ascertained. Upon obtaining a suitable site, the gastroscope was maneuvered into position for direct visualization in the intraluminal stomach while a 20-Argentine [employer] PEG tube tray was opened. Using an installation needle, a wheal was then performed on the anterior abdomen/skin with installation of 1% lidocaine for local anesthesia. The needle was then directed perpendicular to the skin and advanced into the stomach using back pressure as it was advanced. Upon withdrawal of the needle, the remains of the lidocaine was instilled along the tract for a total volume of approximately 5 mL of 1% lidocaine. Then, using a scalpel, a 1 cm vertical incision was made along the site of local anesthesia with minimal bleeding seen. Then, using an aspiration needle, it was advanced into the 1 cm incision made and into the stomach, where a guidewire was fed through the needle catheter and obtained on the other side via the endoscope and snare technique. The guidewire was then pulled back through the esophagus and out through the mouth, at which point, a [employer] 20-Argent[place] percutaneous gastrostomy tube was affixed to the end of it. Then, using a push technique, the guidewire was withdrawn and the PEG tube was advanced into the stomach with approximately 3 cm showing at the skin. The PEG tube was then cut to length with the external bumper and the adapter placed. The patient tolerated the procedure well with no immediate perioperative complications. Upon completion of the procedure, he was transferred to PACU in satisfactory condition. FINDINGS: Esophagus: Normal-appearing mucosa was seen in the proximal, mid, and distal esophagus. There was no evidence of erosions, ulcerations, mass, lesions, or active/recent bleeding. Stomach: Normal-appearing mucosa was seen in the gastric cardia and fundus. There were 2 linear erosions seen in the gastric body measuring approximately 4 to 5 cm in length and associated with 3 to 4 spots of increased mucosal erythema consistent with NG tube trauma. There was no ulcerated mucosa associated with these lesions. There were no other abnormalities seen in the distal gastric body, antrum, greater curvature, and incisura. There was no evidence of overt ulcerations, mass, lesions, or active/recent bleeding. The 20-Argentine percutaneous gastrostomy tube was seen in the distal gastric body and was rotated with no difficulty upon completion of the PEG tube portion of this procedure. Duodenum: Normal-appearing mucosa was seen in both the duodenal bulb and second portion of the duodenum. There was no evidence of erosions, ulcerations, mass, lesions, or active/recent bleeding. IMPRESSION: 1. Linear erosions in the gastric body consistent with nasogastric tube trauma. 2. Successful placement of a 20-Ar[place] [employer] percutaneous gastrostomy tube. RECOMMENDATIONS: 1. Would continue n.p.o. status and nothing through the gastrostomy tube for at least the next 6 hours for evaluation of postoperative complications. At which point, installation of tube feeds can be started per dietary recommendations. 2. Would maintain standard PEG tube care precautions. 3. Would refrain from placing anything between the external bumper and the skin to prevent traction placed on the internal bumper and ulceration/erosion of the anterior gastric wall. 4. Would refrain from any baths or swimming over the next 6 weeks. If the PEG tube is removed inadvertently over the next 6 weeks, this would be considered a surgical emergency with General Surgery evaluation recommended on an urgent basis. 5. Pain control per primary team. We will continue to follow. Please call with any questions. Job ID: [id number]
[2019-04-28 15:49] LABS: Anion Gap 13 mmol/L (10-20); BUN (Urea Nitrogen) 22 mg/dL (8.4-25.7); Calc. Creatinine Clearance 80 mL/min (70-130); Calcium 8.5 mg/dL (7.8-10.44); Carbon Dioxide 22 mmol/L (23-31); Chloride 101 mmol/L (98-107); Estimated GFR-MDRD Greater than 90; Glucose 148 mg/dL (80-115); Potassium 4.5 mmol/L (3.5-5.1); Sodium 131 mmol/L (136-145)
[2019-04-28] MEDS: Sodium Chloride 1 GM TAB PO SCH ×3 (15:57→20:30)
[2019-04-28] MEDS: Carvedilol 25 MG TAB PO SCH ×2 (15:57→17:33)
[2019-04-28] MEDS: Amlodipine 10 MG TAB PO SCH (15:57)
--- NOTE | 2019-04-28 20:17 | RAD ---
SUPINE PORTABLE AP ABDOMINAL RADIOGRAPH: 04/28/19 HISTORY: Evaluate PEG tube placement. COMPARISON: None. FINDINGS: Gastrostomy tube is noted in place overlying the body of the stomach. Injection of contrast demonstra shobha contrast in a decompressed stomach with contrast extending into loops of small bowel. No contrast is seen outside of the confines of the bowel lumen. Bowel gas pattern is nonspecific. No suspicious calcifications are seen. Phleboliths overlie the pelvis. IMPRESSION: 1. Gastrostomy tube noted in place within the stomach. There is no extravasation of contrast see n to suggest leak or malposition of the gastrostomy tube. 2. Nonspecific bowel gas pattern. POS: [facility]
[2019-04-28] MEDS: Insulin Glargine 8 UNITS in Pre-Filled Syringe 1 EACH SC SCH (20:29)
[2019-04-28] MEDS: Tamsulosin HCl 0.4 MG CAP PO SCH (20:30)
--- NOTE | 2019-04-28 20:35 | PDOC.HOSPP ---
- Subjective Subjective: pt up in bed post procedure - Objective Vital Signs & Weight: Vital Signs (12 hours) Temp Pulse Pulse Ox 04/28/19 19:57 100 04/28/19 19:00 98.5 F 04/28/19 16:00 98.2 F 04/28/19 15:57 94 04/28/19 12:00 98.7 F Weight Admit Weight 132 lb 4.438 oz Weight 132 lb 7.965 oz Most Recent Monitor Data Heart Rate from ECG 92 NIBP 146/82 NIBP BP-Mean 103 Respiration from ECG 20 SpO2 99 I&O: 04/27/19 04/28/19 04/29/19 06:59 06:59 06:59 Intake Total 1561.1 1029 304 Output Total 2590 2265 1125 Balance -1028.9 -1236 -821 Result Diagrams: 04/28/19 03:02 04/28/19 15:16 Additional Labs: Accuchecks 04/28/19 04/28/19 04/28/19 20:25 16:50 10:53 POC Glucose 125 H 116 H 137 H 04/27/19 04/27/19 21:26 17:28 POC Glucose 134 H 141 H ROS - Review of Systems All systems: All other ROS were reviewed and found negative. Respiratory: denies: cough, dry, shortness of breath, hemoptysis, SOB with excertion, pleuritic pain, sputum, wheezing, other Cardiovascular: denies: chest pain, palpitations, orthopnea, paroxysmal noc. dyspnea, edema, light headedness, other - Medication Medications: Active Medications Generic Name Dose Route Start Last Admin Trade Name Parminderq PRN Reason Stop Dose Admin Acetaminophen 650 mg 04/18/19 18:08 04/28/19 03:05 Tylenol PO 650 mg Q6H PRN Administration Fever > 101 or Headache Acetaminophen 650 mg 04/21/19 17:02 04/22/19 16:00 Tylenol IA 650 mg Q4H PRN Administration TEMPERATURE Hydrocodone Bitart/Acetaminophen 1 tab 04/24/19 08:41 04/24/19 17:04 [place] 5/325 PO 1 tab Q4H PRN Administration Breakthrough Pain Amlodipine Besylate 10 mg 04/27/19 09:00 04/28/19 15:57 Norvasc PO Not Given DAILY PAULA Carvedilol 25 mg 04/27/19 17:00 04/28/19 17:33 Coreg PO 25 mg BID-WM PAULA Administration Hydralazine HCl 10 mg 04/20/19 13:13 04/27/19 07:02 Apresoline SLOW IVP 10 mg Q4H PRN Administration for SBP > 140. Hydralazine HCl 10 mg 04/20/19 14:24 04/28/19 03:05 Apresoline SLOW IVP 10 mg Q2H PRN Administration SBP>140 Nicardipine HCl 50 mg/ Sodium 250 mls @ 0 mls/hr 04/22/19 16:00 04/22/19 19: 59 Chloride IVPB 250 mls INF PAULA Administration Protocol Titrate Insulin Glargine 8 units/ 0.08 mls @ 0 mls/hr 04/24/19 21:00 04/27/19 21:33 Miscellaneous Medication SC Not Given HS PAULA Sodium Chloride 500 mls @ 45 mls/hr 04/28/19 09:15 04/28/19 10:42 Sodium Chloride 3% IVPB 500 mls .[id number] PAULA Administration Insulin Human Lispro 0 units 04/23/19 08:53 04/25/19 04:28 Humalog SC 2 unit .MILD SLIDING SCALE PRN Administration Mild Correctional Scale Labetalol HCl 20 mg 04/22/19 12:55 04/28/19 04:32 Normodyne SLOW IVP 20 mg Q4H PRN Administration for SBP > 140. Magnesium Hydroxide 30 ml 04/27/19 10:16 04/27/19 10:28 Milk Of Magnesium PO 30 ml BID PRN Administration Constipation Morphine Sulfate 2 mg 04/18/19 21:10 04/23/19 23:46 Morphine SLOW IVP 2 mg Q2H PRN Administration Severe Pain (7-10) Ondansetron HCl 4 mg 04/18/19 19:22 04/20/19 18:22 Zofran IVP 4 mg Q6H PRN Administration Nausea/Vomiting Pantoprazole Sodium 40 mg 04/22/19 09:00 04/28/19 08:51 Protonix IVP 40 mg DAILY PAULA Administration Sodium Chloride 10 ml 04/18/19 18:08 04/28/19 10:43 Flush - Normal Saline IVF 10 ml PRN PRN Administration Saline Flush Sodium Chloride 10 ml 04/22/19 09:00 04/27/19 08:03 Normal Saline Pf FS 10 ml PRN PRN Administration RECONSTITUTION Sodium Chloride 1 gm 04/27/19 09:00 04/28/19 17:33 Sodium Chloride PO 1 gm TID PAULA Administration Tamsulosin HCl 0.4 mg 04/20/19 21:00 04/27/19 21:25 Flomax PO 0.4 mg HS PAULA Administration - Exam Neck: negative: supple, symmetric, no JVD, no Thyromegaly, no lymphadenopathy, no carotid bruit, JVD Heart: negative: RRR, no murmur, no gallops, no rubs, normal peripheral pulses, irregular, diminshed peripheral pulses, murmur present, II/IV, III/IV Gastrointestinal: soft, normal bowel sounds Hosp A/P (1) Intracranial hemorrhage Code(s): I62.9 - NONTRAUMATIC INTRACRANIAL HEMORRHAGE, UNSPECIFIED Status: Acute (2) HTN (hypertension) Code(s): I10 - ESSENTIAL (PRIMARY) HYPERTENSION Status: Acute Qualifiers: Hypertension type: essential hypertension Qualified Code(s): I10 - Essential (primary) hypertension (3) GERD (gastroesophageal reflux disease) Code(s): K21.9 - GASTRO-ESOPHAGEAL REFLUX DISEASE WITHOUT ESOPHAGITIS Status: Chronic Qualifiers: Esophagitis presence: esophagitis presence not specified Qualified Code(s) : K21.9 - Gastro-esophageal reflux disease without esophagitis - Plan s/p peg tube placement. bp well controlled. pt to be transferred to rehab in am.
[2019-04-28 21:02] LABS: Sodium 134 mmol/L (136-145)
[2019-04-29 00:53] LABS: Anion Gap 10 mmol/L (10-20); BUN (Urea Nitrogen) 23 mg/dL (8.4-25.7); Calc. Creatinine Clearance 83 mL/min (70-130); Calcium 8.5 mg/dL (7.8-10.44); Carbon Dioxide 23 mmol/L (23-31); Chloride 108 mmol/L (98-107); Estimated GFR-MDRD Greater than 90; Glucose 137 mg/dL (80-115); Potassium 4.3 mmol/L (3.5-5.1); Sodium 137 mmol/L (136-145)
[2019-04-29 05:54] LABS: #Eosinphils 0.1 thou/uL (0.0-0.7); #Lymphocytes 1.5 thou/uL (1.20-3.40); #Monocytes 1.4 thou/uL (0.11-0.59); #Neutrophils 9.6 thou/uL (1.40-6.50); %Basophils 0.3 % (0.0-1.0); %Eosinophils 1.1 % (0.0-10.0); %Lymphocytes 11.6 % (21.0-51.0); %Monocytes 11.3 % (0.0-10.0); %Neutrophils 75.7 % (42.0-75.0); Hemoglobin 10.9 g/dL (14.0-18.0); Mean Corpuscular HGB CONC 34.6 g/dL (32.0-36.0); Mean Corpuscular Hemoglobin 34.1 pg (27.0-31.0); Mean Corpuscular Volume 98.7 fL (78.0-98.0); Mean Platelet Volume 7.4 fL (7.4-10.4); Platelet Count 310 thou/uL (130-400); RBC Distribution Width 11.5 % (11.5-14.5); White Blood Cell (WBC) Count 12.7 thou/uL (4.8-10.8)
[2019-04-29 06:09] LABS: Anion Gap 11 mmol/L (10-20); BUN (Urea Nitrogen) 25 mg/dL (8.4-25.7); Calc. Creatinine Clearance 82 mL/min (70-130); Calcium 8.4 mg/dL (7.8-10.44); Carbon Dioxide 24 mmol/L (23-31); Chloride 106 mmol/L (98-107); Estimated GFR-MDRD Greater than 90; Glucose 141 mg/dL (80-115); Potassium 4.4 mmol/L (3.5-5.1); Sodium 137 mmol/L (136-145)
[2019-04-29] MEDS: Acetaminophen 325 MG TAB PO PRN ×2 (08:11→13:40)
[2019-04-29] MEDS: Amlodipine 10 MG TAB PO SCH (08:11)
[2019-04-29] MEDS: Carvedilol 25 MG TAB PO SCH (08:12)
[2019-04-29] MEDS: Pantoprazole 40 MG VIAL IVP SCH (08:12)
--- NOTE | 2019-04-29 09:16 | PRG ---
DATE OF SERVICE: 04/29/2019 SUBJECTIVE: This morning, he is awake, alert, and responsive. OBJECTIVE: VITAL SIGNS: Blood pressure much improved 152/83, pulse 94, respirations 18. CHEST: Decreased breath sounds. No wheezing. CARDIAC: Normal S1, S2. No gallops. ABDOMEN: No masses. ASSESSMENT: 1. Hypertension. 2. Right frontoparietal hemorrhage. 3. BPH. 4. Status post percutaneous endoscopic gastrostomy. 5. Status post craniotomy. Labs looks appropriate. His white count is 12.7. Sodium is improved to 137. He can probably be transferred safely to the LT[facility]. Job ID: [id number]
--- NOTE | 2019-04-29 10:28 | PRG ---
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 Serum sodium initially improved from 120, but has been hanging at around 129 to 130. Case discussed with his surgeon, Dr. Wiggins. We gave hypertonic saline yesterday at 45 mL for a few hours. Serum sodium is slowly improved from 129 to the most recent value of 137 over the last 24 hours. His hypertonic saline has already been discontinued last night. In addition, we will maintain the patient's sodium chloride tablet. He also had a PEG tube placed. Currently, the PEG tube is functioning well. He is tolerating the tube feeding. No other complaints. No acute events. OBJECTIVE: VITAL SIGNS: Blood pressure 152/83, heart rate 98, respiratory rate 17, and pulse ox 98%. GENERAL: Awake, alert, comfortable, not in distress. SKIN: Adequate turgor. HEENT: Pinkish conjunctivae. Anicteric sclerae. No neck mass. No carotid bruits. No JVD. CHEST: No deformities. LUNGS: Clear breath sounds. No wheezing. No crackles. HEART: Normal sinus rhythm. No murmur. No gallops. No rubs. ABDOMEN: Globular, soft, nontender. No masses. Positive for PEG tube. EXTREMITIES: No edema. NEUROLOGICAL: Awake, can follow commands. Left-sided weakness. MEDICATIONS: Of April 29, 2019, were reviewed. LABORATORY DATA: Laboratories of April 29, 2019; white count 12.7, hemoglobin 10.9. Sodium 137, potassium 4.4, chloride 106, carbon dioxide 24, BUN 25, creatinine 0.81, calcium 8.4. ASSESSMENT: 1. Acute hyponatremia-this is multifactorial in etiology. Initially, we felt that this could have been dilutional as well as from hypovolemic hyponatremia. He is now well volume repleted. He has been diuresed in the last several days. The possibility that he may have SIADH now remains. We will continue sodium chloride tablet as is. Please note, serum sodium is much improved at 137. No indication for any hypertonic saline. 2. Status post CVA from a bleed-doing well. Awaiting rehab transfer to [place]. Agree with current management. Job ID: [id number]
[2019-04-29] MEDS: Sodium Chloride 1 GM TAB PO SCH (10:35)
[2019-04-29] MEDS: HumaLOG 300 UNITS/3 ML VIAL SC PRN (10:49)
--- NOTE | 2019-04-29 11:28 | PRG ---
DATE OF SERVICE: 04/29/2019 SUBJECTIVE: George Damico is hospital day 11. He is resting currently, but earlier on our team's exam, he was alert and following commands. His flap is full, but not overly tense. He is going to tear today. Job ID: [id number]
[2019-04-29 11:39] VITALS: BP 123/70
[2019-04-29 12:08] VITALS: TEMP 99
--- NOTE | 2019-04-29 12:53 | PRG ---
DATE OF SERVICE: 04/29/2019 This patient is still in room C6 to the ICU. He failed a voiding trial 2 days ago, had to have a Morales catheter replaced. I think it was about 550 mL. He is on tamsulosin. He has had some underlying lower urinary tract symptoms and he was on tamsulosin in the past, so he has been restarted on it. I think his inability to urinate probably is multifactorial. I think some of it is probably related to the recent intercerebral bleed in his surgery and he probably has some central nervous system shock from that still. I think probably voiding trial toward the end of next week would not be a bad idea, but I do not think I would try before then given the catheter being left and should keep his bladder decompressed. Job ID: [id number]
== END 2019-04-29 14:29 | DRG 23 ==
LOC: SCSER 14:42 → CCU 15:50 → SCSER 16:36 → CCU 18:16
PROVIDERS: ADMIT Neurological Surgery; ATTEND Neurological Surgery
PROC: 00N00ZZ Release Brain, Open Approach (ICD-10-PCS; principal; 2019-04-21)
PROC: 0BH17EZ Insertion of Endotracheal Airway into Trachea, Via Natural or Artificial Opening (ICD-10-PCS; 2019-04-21)
PROC: 5A1945Z Respiratory Ventilation, 24-96 Consecutive Hours (ICD-10-PCS; 2019-04-21)
PROC: 0DH63UZ Insertion of Feeding Device into Stomach, Percutaneous Approach (ICD-10-PCS; 2019-04-28)
DX: I61.1 Nontraumatic intracerebral hemorrhage in hemisphere, cortical (principal); G93.6 Cerebral edema; J96.90 Respiratory failure, unspecified, unspecified whether with hypoxia or hypercapnia; G81.94 Hemiplegia, unspecified affecting left nondominant side; G93.49 Other encephalopathy; E87.1 Hypo-osmolality and hyponatremia; Z66 Do not resuscitate; Z51.5 Encounter for palliative care; K21.9 Gastro-esophageal reflux disease without esophagitis; I11.0 Hypertensive heart disease with heart failure; I50.9 Heart failure, unspecified; E87.6 Hypokalemia; R73.9 Hyperglycemia, unspecified; I60.9 Nontraumatic subarachnoid hemorrhage, unspecified; R13.10 Dysphagia, unspecified; R29.704 NIHSS score 4; N40.1 Benign prostatic hyperplasia with lower urinary tract symptoms; R33.9 Retention of urine, unspecified; Z88.0 Allergy status to penicillin; Z98.52 Vasectomy status; Z88.2 Allergy status to sulfonamides; Z79.82 Long term (current) use of aspirin; Z79.899 Other long term (current) drug therapy
CPT/HCPCS: 36415; 36416; 70450; 70553; 71045; 74018; 74230; 80048; 80053; 81001; 82533; 82550; 82805; 83735; 83880; 84100; 84300; 84443; 84484; 85025; 85610; 85730; 87040; 87086; 93005; 93306; 93970; 94002; 94003; 94640; 95816; 95819; 96361; 96374; 96375; A9577; C9113; J0131; J0360; J0744; J1815; J1940; J1953; J1956; J2001; J2250; J2270; J2405; J2704; J3010; J3480; J3490; J7050; J7131; J7620

== ENCOUNTER 2019-06-29 10:23 | Outpatient (CLI) | payer BC ==
--- NOTE | 2019-06-29 11:18 | RAD ---
TWO VIEW SKULL SERIES: CLINICAL HISTORY: Evaluate for indwelling shunt prior to MRI exam. FINDINGS: There is a large right calvarial defect. This likely relates to prior craniectomy. Correlate with galindo gical history. No indwelling radiopaque shunt is evident. IMPRESSION: Postoperative calvarium. No indwelling radiopaque shunt catheter is visualized. Transcribed Date/Time: 06/29/2019 12:15 PM
[2019-06-29 11:34] LABS: Estimated GFR-MDRD - POC Greater than 90
--- NOTE | 2019-06-29 13:34 | MRI ---
MRI BRAIN WITH AND WITHOUT CONTRAST: INDICATIONS: Follow up intracranial hemorrhage. COMPARISON: MRI brain from 04/18/2019. CT brain from 04/22/2019. FINDINGS: At the site of the previously described parenchymal hematoma in the right frontal lobe, there is now a large cavitary lesion, measuring 6.8 AP dimension x 3.2 cm width. There is peripheral blood product present. There is increasing vasogenic edema today in the right cerebral hemisphere when compared to prior mirna dy. There is increasing extension of the right frontal lobe through the craniectomy defect, when comp ared to the prior study, due to the increasing vasogenic edema. No significant midline shift seen at the septum pellucidum. There has been slight increase in the size of the lateral ventricles and third ventricle when compare d to the prior exam. The chronic ischemic white matter changes appear stable on FLAIR sequence. No abnormal enhancement identified on post contrast images. IMPRESSION: Large cavitary lesion at the site of the previously noted parenchymal hematoma. Surrounding blood pro duct is again noted. There is increasing vasogenic edema in the right cerebral hemisphere, primarily involving the frontal lobe with increasing protrusion of the frontal lobe cortex through the craniect juan f defect on the right. There has been interval enlargement of the lateral ventricles and third vent ricle since the prior study. Findings were relayed to the neurosurgery PA at the time of the dictation regarding the interval guerra ges. CODE CR POS: OFF
[2019-06-29] MEDS ORDERED: Gadobenate Dimeglumine 529 MG/1 ML (20ML VIAL) ONE (20:50)
== END 2019-06-29 10:24 | disposition home or self-care (01) ==
LOC: BICMRI 10:23
PROVIDERS: ATTEND Neurological Surgery
DX: I61.0 Nontraumatic intracerebral hemorrhage in hemisphere, subcortical (principal); G93.6 Cerebral edema; G93.9 Disorder of brain, unspecified; Z98.890 Other specified postprocedural states
CPT/HCPCS: 70250; 70553; 82565; A9577

== ENCOUNTER 2019-07-17 12:25 | Inpatient (IN) | payer BC ==
[2019-07-17] MEDS ORDERED: levETIRAcetam In NaCl (Iso-Os) 1,000 MG in Premix Bag 1 BAG IVPB SCH (12:45)
--- NOTE | 2019-07-17 13:33 | CT ---
CT BRAIN NONCONTRAST: DATE: 07/17/2019 HISTORY: 64-year-old male follow-up intracranial hemorrhage COMPARISON: CT of 04/22/2019. MRI of 06/29/2019. FINDINGS: Again noted is the right frontal craniectomy defect, mostly covered with synthetic duraplasty sheet. There is a greater degree of herniation of right frontal lobe parenchyma through the craniectomy defect compared to 04/22/2019. Although the CT-hyperdense hematoma has resolved, now evolved into a ri ght upper frontal lobe intra-axial moderate sized cyst inseparable from the frontal horn of the right lateral ventricle, there is a greater degree of edema in the right upper frontal lobe parenchym a, including edema surrounding this cyst. This edema involves deep and subcortical white matter, and cortex. The intraventricular hemorrhage demonstrated on the prior CT has resolved. The sizes of t he lateral ventricles and third ventricle have increased since 04/22/2019. The lateral ventricles are now mildly to moderately dilated. There is a tiny focus of subarachnoid hemorrhage in one of the left upper lateral frontal sulci, new since prior CT. No acute intracranial hemorrhage on the right side.. No midline shift. Basal cisterns are not effaced. 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 2) there is a greater degree of herniation of right upper frontal lobe brain parenchyma through the p artial craniectomy defect, apparently due to the greater degree of right upper frontal lobe cerebral edema. 3) incidental finding of a tiny focus of left upper acute subarachnoid minimal hemorrhage of uncertai n etiology.
--- NOTE | 2019-07-17 13:37 | RAD ---
AP CHEST: HISTORY: Mental status change. FINDINGS: The lungs are clear. No infiltrate or vascular congestion. Heart size is normal. IMPRESSION: No acute process. POS: [facility]
[2019-07-17 13:58] LABS: Bilirubin Negative (Negative); Blood, Urine Negative (Negative); Clarity Clear (Clear); Glucose, Urine (Dipstick) Normal (Negative); Leukocyte Negative Leu/uL (Negative); Nitrite Negative (Negative); Protein, Urine (Dipstick) 10 mg/dL (Neg-Trace); Urobilinogen Normal mg/dL (Less than 2)
[2019-07-17 14:00] LABS: #Lymphocytes 0.9 thou/uL (1.20-3.40); #Monocytes 0.5 thou/uL (0.11-0.59); #Neutrophils 7.7 thou/uL (1.40-6.50); %Basophils 0.2 % (0.0-1.0); %Eosinophils 0.4 % (0.0-10.0); %Lymphocytes 9.4 % (21.0-51.0); %Monocytes 5.7 % (0.0-10.0); %Neutrophils 84.3 % (42.0-75.0); Hemoglobin 11.7 g/dL (14.0-18.0); Mean Corpuscular HGB CONC 33.2 g/dL (32.0-36.0); Mean Corpuscular Hemoglobin 31.9 pg (27.0-31.0); Mean Corpuscular Volume 96.1 fL (78.0-98.0); Mean Platelet Volume 7.5 fL (7.4-10.4); Platelet Count 185 thou/uL (130-400); RBC Distribution Width 12.3 % (11.5-14.5); Red Blood Cell (RBC) Count 3.66 mill/uL (4.70-6.10); White Blood Cell (WBC) Count 9.1 thou/uL (4.8-10.8)
[2019-07-17 14:23] LABS: ALT (SGPT) 27 U/L (8-55); AST (SGOT) 17 U/L (5-34); Albumin 3.5 g/dL (3.4-4.8); Alkaline Phosphatase 41 U/L (40-110); Anion Gap 12 mmol/L (10-20); BUN (Urea Nitrogen) 12 mg/dL (8.4-25.7); Bilirubin, Total 0.2 mg/dL (0.2-1.2); CK (CPK) 173 U/L (30-200); Calc. Creatinine Clearance 0 mL/min (70-130); Calcium 8.5 mg/dL (7.8-10.44); Carbon Dioxide 25 mmol/L (23-31); Chloride 106 mmol/L (98-107); Estimated GFR-MDRD Greater than 90; Globulin 2.6 g/dL (2.4-3.5); Glucose 108 mg/dL (80-115); Lipase 11 U/L (8-78); Potassium 4.2 mmol/L (3.5-5.1); Protein, Total 6.1 g/dL (5.8-8.1); Sodium 139 mmol/L (136-145)
[2019-07-17] MEDS ORDERED: Dexamethasone 10 MG/ML VIAL ONE (15:42)
[2019-07-17] MEDS ORDERED: Ondansetron PF 4 MG/2 ML Vial IVP PRN (18:17)
[2019-07-17] MEDS ORDERED: Sodium Chloride 0.9% 1,000 ML IV SCH (18:17)
[2019-07-17] MEDS ORDERED: Ondansetron ODT 4 MG TAB SL PRN (18:17)
[2019-07-17] MEDS ORDERED: Lorazepam 2 MG/ML VIAL SLOW IVP PRN ×2 (18:18→18:44)
[2019-07-17] MEDS ORDERED: Labetalol HCl 100 MG/20 ML VIAL SLOW IVP PRN (18:44)
[2019-07-17] MEDS ORDERED: hydrALAZINE 20 MG/ML VIAL SLOW IVP PRN (18:44)
[2019-07-17 20:10] VITALS: BMI 21.6
[2019-07-17] MEDS ORDERED: Dexamethasone 10 MG/ML VIAL SLOW IVP SCH (21:00)
[2019-07-17] MEDS: NS 0.9% w/ 20 MEQ KCL 1,000 ML/1,000 ML BAG IV SCH (21:42)
[2019-07-17] MEDS: Famotidine 20 MG TAB PO SCH (21:43)
[2019-07-17] MEDS: Acetaminophen 325 MG TAB PO PRN (22:14)
--- NOTE | 2019-07-17 23:11 | HP ---
PRIMARY CARE PHYSICIAN: Janet Silver MD. CHIEF COMPLAINT: Seizure. HISTORY OF PRESENT ILLNESS: Mr. Damico is a pleasant 64-year-old gentleman, who was recently admitted to our facility after he suffered a hemorrhagic stroke. He had evidence of a right frontal lobe hemorrhage. He was noted to have significant dysphagia as well as some weakness on the left side. He was discharged to [facility] where his says he has been progressing relatively well and he was there for about 6 weeks and returned home. She says that he had gone to the point where he was transferring from a bed to a wheelchair and was able to pull up to a stand. He had regained his ability to swallow and the PEG tube had been removed and also his speech had improved to where he was able to communicate well. She says that today he was at home and was getting dressed when he says his hand accidentally hit the area where he had a craniectomy and he said "Oh, well did that hurt" and then following that he started to have a seizure. She showed me a video tape of the seizure on her phone where he had some tonic clonic jerking like movements. She says that he had another one shortly after that. She said she would try to take him to the hospital on her own, but he was weak on the left side, so she called an ambulance. He was brought to the ER where he had another seizure en route and was given Ativan. He was evaluated here in the ER with a CT scan of the brain, which demonstrated a large cavitary area in the area where he had had the hematoma. There was also some surrounding vasogenic edema lateral ventricles as well as the 3rd ventricle compared to the previous CT scan. He was given IV Keppra 1 g as well as Decadron and is being placed in observation for further evaluation. By the time, I see him, he was extremely drowsy, but he was beginning to wake up. I asked him who was standing next to me and he was able to say my . His says that he had not been moving the left leg, but now he is moving the left leg, but he still has not moved the left arm. Otherwise, I am unable to get any additional history. His denies any fevers or chills. No nausea, no vomiting recently and again had stated that he had been doing well. REVIEW OF SYSTEMS: Review of systems is unobtainable as the patient is currently assumed to be postictal. PAST MEDICAL HISTORY: Significant for hemorrhagic stroke as well as gastroesophageal reflux disease. PAST SURGICAL HISTORY: He has had a vasectomy. He has had a right frontal craniectomy on April 21, 2019. He also had a PEG tube placed and then removed. ALLERGIES: TO PENICILLIN AND SULFA. SOCIAL HISTORY: He is a nonsmoker. He occasionally drinks wine. He is . 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 FAMILY HISTORY: Significant for his father having a TIA. Brother had congestive heart failure. Father also had lymphoma. CURRENT MEDICATIONS: Include: 1. Tylenol 500 mg twice daily. 2. Gabapentin 300 mg once daily. 3. Melatonin 10 mg daily. 4. Flomax 0.4 mg daily. PHYSICAL EXAMINATION: GENERAL: He is awake, but a bit drowsy. He is able to follow some commands. He was able to tell me that his was standing next to him, but otherwise he was not able to tell me anything else. VITAL SIGNS: Blood pressure was 113/70, heart rate 101, respiratory rate of 16, temperature is 98.3. HEENT: His pupils are equal and reactive. Extraocular muscles are intact. NECK: There is no adenopathy. No bruits. LUNGS: Clear to auscultation. There is no wheezing, no rales, no rhonchi. CARDIOVASCULAR: He had a normal S1, S2. I did not appreciate an S3 or S4. No murmurs, clicks, or rubs. ABDOMEN: Obese. It is soft, nontender, nondistended. Positive for bowel sounds. No rebound or guarding. EXTREMITIES: There is no edema. He is moving the right arm and both his right and left legs. However, he is not able to follow commands. 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 LABORATORY DATA AND IMAGING: He had a CT scan of the brain that again showed the previously demonstrated right upper frontal hematoma has evolved into a cystic lesion, which may or may not communicate with the right lateral ventricle. There was some degree of herniation of the right upper frontal lobe of the brain parenchyma through the partial craniectomy defect, which appeared to be to a greater degree and there was some surrounding cerebral edema and an incidental finding of a tiny focus of left upper acute subarachnoid hemorrhage of uncertain etiology. The white blood cell count was 9.1, hemoglobin 11.7, hematocrit is 35.1, and platelet count is 185. Sodium is 139, potassium 4.2, chloride is 106, CO2 is 25, BUN of 12, creatinine 0.74, glucose is 108. Prolactin was 19.77. Urinalysis was negative. ASSESSMENT: This is a pleasant 64-year-old gentleman who had a recent intracranial hemorrhage. He is status post right craniectomy, who had been progressing well with outpatient rehab, who suffered a seizure earlier today. There is CT evidence of possible increasing cerebral edema in the area where he had the previous craniectomy and possible small or tiny subarachnoid hemorrhage. He will be admitted and observed in the Stroke Unit, agree with loading him with Keppra. We will place him on p.r.n. Ativan for seizure precautions and continue Keppra at 500 mg IV q.12. We will continue IV Decadron and we will consult Neurosurgery as well as Neurology. We will also place him on a low-dose IV fluids at a moderate rate. We will place him on gastrointestinal as well as deep venous thrombosis prophylaxis in the form of sequential compression devices. Further recommendations are to follow. Job ID: [id number]
[2019-07-18] MEDS ORDERED: Fioricet 325/50/40 mg Tablet PO SCH (01:30)
[2019-07-18] MEDS: Acetaminophen 325 MG TAB PO PRN ×2 (02:32→07:55)
[2019-07-18 06:11] LABS: #Lymphocytes 0.7 thou/uL (1.20-3.40); #Monocytes 0.1 thou/uL (0.11-0.59); #Neutrophils 4.9 thou/uL (1.40-6.50); %Eosinophils 0.1 % (0.0-10.0); %Lymphocytes 11.7 % (21.0-51.0); %Monocytes 0.9 % (0.0-10.0); %Neutrophils 87.3 % (42.0-75.0); Hemoglobin 12.3 g/dL (14.0-18.0); Mean Corpuscular Hemoglobin 32.4 pg (27.0-31.0); Mean Corpuscular Volume 95.4 fL (78.0-98.0); Mean Platelet Volume 7.9 fL (7.4-10.4); Platelet Count 214 thou/uL (130-400); RBC Distribution Width 12.4 % (11.5-14.5); Red Blood Cell (RBC) Count 3.79 mill/uL (4.70-6.10); White Blood Cell (WBC) Count 5.7 thou/uL (4.8-10.8)
[2019-07-18 06:32] LABS: Anion Gap 13 mmol/L (10-20); BUN (Urea Nitrogen) 14 mg/dL (8.4-25.7); Calc. Creatinine Clearance 69 mL/min (70-130); Calcium 8.8 mg/dL (7.8-10.44); Carbon Dioxide 20 mmol/L (23-31); Chloride 106 mmol/L (98-107); Estimated GFR-MDRD 86; Glucose 145 mg/dL (80-115); Potassium 4.4 mmol/L (3.5-5.1); Sodium 135 mmol/L (136-145)
[2019-07-18] MEDS: Famotidine 20 MG TAB PO SCH (09:00)
[2019-07-18] MEDS ORDERED: FLU VACC QS2019-20(6MOS UP)/PF 60 MCG/0.5 ML SYRINGE IM ONE (09:00)
--- NOTE | 2019-07-18 10:17 | PRG ---
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 He has had a hemicraniectomy and has since been to inpatient rehab and has now been at home for several weeks. He is now 3 months out from his original hemorrhage. He presented to the ER yesterday secondary to generalized seizure. He has never had a seizure as part of his course of recovery. He has since been placed on Keppra. I visited with him and his this morning. He is essentially back to baseline. He had a fairly profound Trey's paralysis on the left side yesterday, but this is improving quite rapidly. He has now antigravity with the left arm where he could not move his left side at all yesterday. His imaging revealed what appears to be a small degree of hemorrhage on the left side. I believe this is likely related to traumatic subarachnoid hemorrhage, perhaps from his seizure. He does have edema present along the right cerebral hemisphere, which he has had for some time now. The area of gliosis from his hemorrhage appears to have been expanded now by spinal fluid. He has a mild degree of headache, which he has had for many months. I do not foresee a need for additional imaging at this point in time. He has had a recent MRI scan and there are not any additional new findings on the CT that I believe would warrant a new MRI. He should stay on antiepileptics for an indefinite period. From my perspective, there are no additional procedures to be performed at this time and he can be discharged home where he will resume outpatient physical therapy. I will arrange appropriate outpatient followup with me over the next couple of weeks. Job ID: [id number]
[2019-07-18 11:33] VITALS: BP 103/58; TEMP 98.3
--- NOTE | 2019-07-18 12:53 | PDOC.HOSPP ---
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 He is close to his baseline. - Objective Vital Signs & Weight: Vital Signs (12 hours) Temp Pulse Resp BP Pulse Ox 07/18/19 11:32 98.3 F 91 16 103/58 L 99 07/18/19 07:49 98.6 F 100 18 118/65 98 07/18/19 04:00 97.9 F 88 18 113/67 97 Weight Weight 125 lb 12.8 oz I&O: 07/17/19 07/18/19 07/19/19 06:59 06:59 06:59 Intake Total 952 Output Total 650 Balance 302 Result Diagrams: 07/18/19 04:59 07/18/19 04:59 Hospitalist ROS - Medication Medications: Active Medications Generic Name Dose Route Start Last Admin Trade Name Freq PRN Reason Stop Dose Admin Acetaminophen 650 mg 07/17/19 18:44 07/18/19 07:55 Tylenol PO 650 mg Q4H PRN Administration Headache/Fever/Mild Pain (1-3) Famotidine 20 mg 07/17/19 21:00 07/18/19 09:00 Pepcid PO 20 mg BID PAULA Administration Levetiracetam 500 mg/ Device 100 mls @ 200 mls/hr 07/17/19 21:00 07/18/19 08: 58 IVPB 100 mls BID PAULA Administration Potassium Chloride/Sodium Chloride 1,000 ml in 1,000 mls @ 75 mls/hr 07/17/19 19:15 07/17/19 21:42 Ns 0.9% W/ 20 Meq Kcl IV 1,000 mls .[id number] PAULA Administration Sodium Chloride 10 ml 07/18/19 09:00 07/18/19 09:00 Flush - Normal Saline IVF 10 ml Q12HR PAULA Administration - Exam Eye: PERRL Heart: RRR, no murmur, no gallops, no rubs, normal peripheral pulses Respiratory: CTAB, no wheezes, no rales, no ronchi, normal chest expansion, no tachypnea, normal percussion Gastrointestinal: soft, non-tender, non-distended, normal bowel sounds, no palpable masses, no hepatomegaly, no splenomegaly Extremities: no cyanosis, no clubbing, no edema Hosp A/P (1) Seizure Code(s): R56.9 - UNSPECIFIED CONVULSIONS Status: Acute - Plan * Seizure following ICH and craniectomy * He is back to his baseline * He is stable for discharge
[2019-07-18] MEDS: NS 0.9% w/ 20 MEQ KCL 1,000 ML/1,000 ML BAG IV SCH (13:01)
--- NOTE | 2019-07-18 16:33 | DIS ---
DATE OF ADMISSION: 07/17/2019 DATE OF DISCHARGE: 07/18/2019 PRIMARY CARE PHYSICIAN: Dr. Janet Silver. DISCHARGE DISPOSITION: Home. PRIMARY DISCHARGE DIAGNOSES: 1. Seizure. 2. History of recent hemorrhagic stroke. 3. Gastroesophageal reflux disease. DISCHARGE MEDICATIONS: Include: 1. Keppra 500 mg p.o. twice daily. 2. Flomax 0.4 mg at bedtime. 3. Multivitamin once daily. 4. Melatonin 3 mg p.o. at bedtime. 5. Neurontin 300 mg p.o. at bedtime. 6. Tylenol 500 mg twice daily. PROCEDURES DONE DURING THE ADMISSION: The patient had a CT scan of the brain; it showed previously-described right upper frontal intra-axial hematoma, which has evolved into a cystic lesion. There was a greater degree of herniation of the right upper frontal lobe of brain parenchyma through the partial craniectomy defect, and there was an incidental finding of a tiny focus of acute subarachnoid hemorrhage of uncertain etiology. CODE STATUS: DNAR. ALLERGIES: 1. PENICILLINS. 2. SULFA. 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 He had recently been hospitalized after suffering a hemorrhagic stroke, which was rather severe requiring a right craniectomy. He was admitted, and he was loaded with Keppra as well as given IV Decadron due to concern for increased edema and intracranial pressure. He was seen by Dr. Wiggins, who felt that the findings on CT scan were not much different from a recent MRI that he had on June 29. He did not feel that any further workup was warranted. By this time, the patient is back to his baseline. His is at bedside and confirms this. We will go ahead and continue Keppra orally, and he already has a followup appointment scheduled with Dr. Wiggins at the end of this month, on July 27, and the patient is currently clinically stable and will be discharged home today. Job ID: [id number]
--- NOTE | 2019-07-20 04:09 | PQF ---
AMY VELEZ TONI MD [id number] [facility] [place] [id number] CLINICAL DOCUMENTATION CLARIFICATION FORM: POST DISCHARGE Addendum to original discharge summary date: ____ Late entry note date: __ DATE: 07/20/19 ATTN: Ramez Maddox Please exercise your independent, professional judgment in responding to the clarification form. Clinical indicators are provided on the bottom of this form for your review Can you please further specify if Seizure is a complication of recent craniectomy or not? Please check appropriate box(s): [ ] Seizure is due to post operative craniectomy [ X ] Seizure is not due to post operative craniectomy [ X ] Other diagnosis please ____Seizure due to recent ICH [ ] Unable to determine In addition, please specify: Present on Admission (POA): [ X ] Yes [ ] No [ ] Unable to determine CLINICAL INDICATORS - SIGNS / SYMPTOMS / LABS H and P pg.3- He is status post craniotomy who had been progressing well with outpatient rehab, who suffered a seizure earlier today H and P pg.3-CT evidence of possible increasing cerebral edema in the area where he had the previous craniectomy and possible small or tiny subarachnoid hemorrhage Hospitalist PN 07/18 pg.3- Seizure following ICH and craniectomy ED Notes 07/17 - patient presents for evaluation of postictal state RISK FACTORS S/p Craniectomy on April 21 2019- H and P pg.2 Histor of recent hemorrhagic stroke- DS pg.1 64 years old male ED Notes 07/17 Cerebral edema H and P pg 1 Trey's paralysis PN 07/18 pg 1 TREATMENT: Keppra 500mg IV- H and P pg.3 Decadron IV- H and P pg.3 Neuro Consult- Dr. Feliciano Estrella CT brain 07/17 (This form is maintained as a part of the permanent medical record) 2014 [employer]. All Rights Reserved [employer] [not provided] MTDD
== END 2019-07-18 16:13 | disposition home or self-care (01) | DRG 100 ==
LOC: ERS 12:25 → ERHOLD 15:05 → 2SE 18:08
PROVIDERS: ADMIT Internal Medicine; ATTEND Internal Medicine
DX: G40.89 Other seizures (principal); G93.6 Cerebral edema; R40.2342 Coma scale, best motor response, flexion withdrawal, at arrival to emergency department; I60.9 Nontraumatic subarachnoid hemorrhage, unspecified; I69.354 Hemiplegia and hemiparesis following cerebral infarction affecting left non-dominant side; Z66 Do not resuscitate; Z23 Encounter for immunization; K21.9 Gastro-esophageal reflux disease without esophagitis; G83.84 Todd's paralysis (postepileptic); R40.2142 Coma scale, eyes open, spontaneous, at arrival to emergency department; R40.2242 Coma scale, best verbal response, confused conversation, at arrival to emergency department; Z86.73 Personal history of transient ischemic attack (TIA), and cerebral infarction without residual deficits; Z98.52 Vasectomy status; Z88.0 Allergy status to penicillin; Z88.2 Allergy status to sulfonamides; Z79.899 Other long term (current) drug therapy; I69.391 Dysphagia following cerebral infarction
CPT/HCPCS: 36415; 51701; 70450; 71045; 80048; 80053; 81003; 82550; 83690; 84146; 85025; 90471; 90686; 93005; 96361; 96365; 96375; G0008; J1100; J1953; J3480

== ENCOUNTER 2019-07-27 13:11 | Outpatient (CLI) | payer BC ==
[2019-07-27] MEDS ORDERED: Sodium Chloride 0.9% 15 ML NEB ONE (18:00)
--- NOTE | 2019-07-27 18:44 | HP ---
HISTORY OF PRESENT ILLNESS: George Damico is a very pleasant 64-year-old gentleman, accompanied by his spouse, who presents to the [facility] for evaluation of a wound of the coccygeal region. The patient's states that the patient was discharged from the hospital on 06/11/2019. She states that at the time of discharge, she was instructed to apply a topical preparation serving as a skin barrier for the area of erythema of the coccygeal region. The patient's states that this area of erythema has been present for approximately 6 weeks after discharge. She states that she noted the skin "opening up" at the beginning of June. She reports weeping of the skin in this area. The patient's states that the patient was seen by Dr. Fran Silver on 07/07/2019 and at this time referred to the Wound Center for further evaluation and treatment. PAST MEDICAL HISTORY: 1. Gastroesophageal reflux disease. 2. Hemorrhagic CVA. 3. Hypertension. 4. Seizure disorder. PAST SURGICAL HISTORY: 1. Vasectomy. 2. Left thumb surgery. 3. Right frontal craniectomy. 4. PEG tube placement and subsequent removal. MEDICATIONS: 1. Keppra. 2. Flomax. 3. Melatonin. 4. Neurontin. 5. Tylenol. 6. Multivitamin. 7. Calcium. ALLERGIES: PENICILLIN, SULFA. SOCIAL HISTORY: Negative for tobacco use. The patient admits to the social consumption of alcohol for approximately 40 years, but none since being placed on Keppra. FAMILY HISTORY: Negative for diabetes mellitus or coronary artery disease. PHYSICAL EXAMINATION: VITAL SIGNS: Temperature 98.1, pulse 96, respirations 18,blood pressure 137/71. GENERAL: A 64-year-old gentleman, lying on stretcher, in examination room, in no acute distress. HEENT: Normocephalic. NECK: No nuchal rigidity. CHEST: Clear to auscultation. CV: Regular rate and rhythm. ABDOMEN: Soft. EXTREMITIES: No clubbing or cyanosis. BACK: A linear wound of the coccygeal region is present, which measures approximately 1.0 x 0.1 cm. This superficial wound is within an area of erythema over the coccygeal region. The area of erythema appears to be secondary to cutaneous candidiasis. ASSESSMENT AND PLAN: 1. Rash over coccygeal region as described above. The patient has been given a prescription for Lotrisone cream to be applied to the affected area up to b.i.d. The patient and his have been instructed that the first application should be after cleansing with soap and water and patting dry. They have been told that the second application may be without prior cleansing and patting dry of the skin. The patient and his understand and are in agreement with the preceding treatment plan. The patient has also been given a box of InterDry for use as needed. The patient will return to clinic on an as-needed basis. 2. Gastroesophageal reflux disease. 3. Hypertension. 4. Hemorrhagic CVA. 5. Seizure disorder. Job ID: [id number]
== END 2019-07-27 13:12 | disposition home or self-care (01) ==
LOC: WCC 13:11
PROVIDERS: ATTEND Family Medicine
DX: L89.151 Pressure ulcer of sacral region, stage 1 (principal); R21 Rash and other nonspecific skin eruption; K21.9 Gastro-esophageal reflux disease without esophagitis; I10 Essential (primary) hypertension; G40.909 Epilepsy, unspecified, not intractable, without status epilepticus; I62.9 Nontraumatic intracranial hemorrhage, unspecified
CPT/HCPCS: 97602; 99203; A4218; G0463

== ENCOUNTER 2019-08-09 08:38 | Outpatient (CLI) | payer BC ==
--- NOTE | 2019-08-09 09:59 | CT ---
CT HEAD NONCONTRAST: Date: 08/09/19 INDICATION: Follow-up intracerebral hemorrhage. COMPARISON: 07/17/19. 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 Surrounding prominent degree of vasogenic edema occupying anterior to mid right cerebral hemisphere persists with associated extracranial evie iation underlying prosthetic craniotomy flap. Incidental note of cavum velum interpositum versus velu m interpositum cyst. Prior small volume extra-axial hemorrhage has resolved. There is multifocal whit e matter hypoattenuation bilaterally indicative of microvascular ischemic disease. Redemonstration of hypoattenuating foci of the brainstem which may be related to gliosis. IMPRESSION: 1. 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 2. Interval resolution of prior small volume intracranial hemorrhage. 3. Persistent ventriculomegaly with associated ex vacuo dilatation. POS: TPC
== END 2019-08-09 08:39 | disposition home or self-care (01) ==
LOC: TBSIIMAG 08:38
PROVIDERS: ATTEND Neurological Surgery
DX: I61.9 Nontraumatic intracerebral hemorrhage, unspecified (principal); G93.0 Cerebral cysts
CPT/HCPCS: 70450

== ENCOUNTER 2019-11-11 05:54 | Inpatient (IN) | payer BC ==
--- NOTE | 2019-11-10 14:43 | HP ---
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 He has been since that time involved in rehab and extensive outpatient physical therapy and has reached a point now after a few clinic visits postoperatively, where he would like to proceed with cranioplasty. He has met with Dr. Wiggins and spoke with him on the phone extensively regarding this and hopes to move forward with replacement of prior bone flap removed during initial craniectomy. PAST MEDICAL HISTORY: Significant for gastroesophageal reflux. PAST SURGICAL HISTORY: Vasectomy and craniectomy. PSYCHIATRIC HISTORY: None. CURRENT MEDICATIONS: 1. Aspirin. 2. Zantac. ALLERGIES: PENICILLIN AND SULFA DRUGS. PHYSICAL EXAMINATION: The patient is alert and oriented x3. Gait is weak and at times uses a cane or a walker. Otherwise, cranial nerve function grossly intact, 2 through 12. ASSESSMENT: Cranial defect, status post craniectomy. PLAN: Dr. Wiggins met with Dr. Damico, we advocated for cranioplasty. Explained the risks, benefits, and alternatives to the procedure. The patient expressed understanding and elected to move forward with surgery as discussed. I do believe that he is mentally competent and capable of making medical decisions for himself. We will move forward with surgery as planned. Job ID: [id number]
[2019-11-11] MEDS ORDERED: Famotidine/PF 20 mg/2ml Vial ONE (06:17)
[2019-11-11] MEDS ORDERED: Fentanyl 100 MCG/2 ML VIAL ONE ×4 (06:17→10:24)
[2019-11-11] MEDS ORDERED: Clindamycin/D5W 900 mg/50 ml Premix Bag ONE ×2 (06:46→15:37)
[2019-11-11] MEDS ORDERED: Levofloxacin 500 mg/D5W 100 ml Premix Bag ONE (06:46)
[2019-11-11] MEDS ORDERED: SUGAMMADEX SODIUM 200 MG/2 ML VIAL ONE (06:59)
[2019-11-11 07:07] LABS: #Eosinphils 0.1 thou/uL (0.0-0.7); #Lymphocytes 1.4 thou/uL (1.20-3.40); #Monocytes 0.4 thou/uL (0.11-0.59); #Neutrophils 1.8 thou/uL (1.40-6.50); %Basophils 0.8 % (0.0-1.0); %Eosinophils 2.4 % (0.0-10.0); %Lymphocytes 38.1 % (21.0-51.0); %Neutrophils 48.7 % (42.0-75.0); Hemoglobin 13.5 g/dL (14.0-18.0); Mean Corpuscular HGB CONC 34.3 g/dL (32.0-36.0); Mean Corpuscular Hemoglobin 33.7 pg (27.0-31.0); Mean Corpuscular Volume 98.1 fL (78.0-98.0); Mean Platelet Volume 8.5 fL (7.4-10.4); Platelet Count 200 thou/uL (130-400); RBC Distribution Width 11.7 % (11.5-14.5); White Blood Cell (WBC) Count 3.7 thou/uL (4.8-10.8)
[2019-11-11 07:22] LABS: Anion Gap 14 mmol/L (10-20); BUN (Urea Nitrogen) 20 mg/dL (8.4-25.7); Calc. Creatinine Clearance 64 mL/min (70-130); Calcium 9.4 mg/dL (7.8-10.44); Carbon Dioxide 27 mmol/L (23-31); Chloride 106 mmol/L (98-107); Estimated GFR-MDRD 77; Glucose 105 mg/dL (80-115); Potassium 4.8 mmol/L (3.5-5.1); Sodium 142 mmol/L (136-145)
[2019-11-11] MEDS ORDERED: Thrombin 5000 UNITS/5 ML VIAL ONE (08:43)
[2019-11-11] MEDS ORDERED: Bacitracin Zinc Ointment 30 gm TUBE ONE (09:09)
[2019-11-11] MEDS ORDERED: Ondansetron PF 4 MG/2 ML Vial IVP PRN (09:26)
[2019-11-11] MEDS ORDERED: Docusate 100 MG CAP PO PRN (09:26)
[2019-11-11] MEDS ORDERED: hydrALAZINE 20 MG/ML VIAL SLOW IVP PRN (09:26)
[2019-11-11] MEDS ORDERED: Morphine 2 MG/ML SYRINGE SLOW IVP PRN (09:26)
[2019-11-11] MEDS ORDERED: Labetalol HCl 100 MG/20 ML VIAL SLOW IVP PRN (09:26)
[2019-11-11] MEDS ORDERED: Promethazine HCl 25 MG/ML VIAL SLOW IVP PRN (09:37)
[2019-11-11] MEDS ORDERED: Promethazine HCl 25 MG/ML VIAL IM PRN (09:37)
[2019-11-11] MEDS ORDERED: Ondansetron HCl/PF 4 MG/2 ML Vial IVP PRN (09:37)
--- NOTE | 2019-11-11 09:38 | OP ---
DATE OF PROCEDURE: 11/11/2019 ADJUNCT PSYCHOLOGY INSTRUCTOR: Bradley Geller PA-C. INDICATION: Prior hemicraniectomy. PROCEDURE PERFORMED: Cranioplasty with replacement of bone flap. ANESTHESIA: General. DESCRIPTION OF PROCEDURE: The patient was brought into the operating room and placed under general anesthesia. He was placed on the table in the supine position. His head was turned to the left for exposure of his craniectomy defect side on the right. Minimal head shape was performed along the incision line. After prepping and draping and after an appropriate preoperative pause, the incision was created. The galea was reflected anteriorly. There was a piece of silastic sheeting present from his last operation, which was carefully removed. His brain was quite protuberant secondary to communication between gliotic brain and the ventricle. As such, a small corticotomy was performed over the area of gliosis in order to decompress the brain, which was clear spinal fluid throughout. After decompressing the brain, the bone flap was replaced and secured with four-point fixation along the perimeter. We continued to maintain hemostasis. The area was irrigated well. The skin was approximated and closed in anatomic layers. The procedure came to an end without any known complication. Job ID: [id number]
[2019-11-11] MEDS ORDERED: PROPOFOL 200 MG/20 ML VIAL ONE (10:13)
[2019-11-11] MEDS ORDERED: EPHEDRINE 25 MG/5 ML SYRINGE ONE (10:13)
[2019-11-11] MEDS ORDERED: Lidocaine 1% PF 5 ML VIAL ONE (10:13)
[2019-11-11] MEDS ORDERED: PHENYLEPHRINE-NS 100 MCG/ML 10 ML SYRINGE ONE (10:13)
[2019-11-11] MEDS ORDERED: Metoclopramide HCl 10 MG/2 ML VIAL ONE (10:13)
[2019-11-11] MEDS ORDERED: Ketorolac Tromethamine 30 MG/ML VIAL ONE (10:13)
[2019-11-11] MEDS ORDERED: Rocuronium Bromide 10 MG/ML (10ML VIAL) ONE (10:13)
[2019-11-11] MEDS ORDERED: HYDROmorphone 2 MG/ML VIAL ONE (11:17)
[2019-11-11] MEDS ORDERED: Phenazopyridine HCl 97.5 MG TABLET ONE (11:32)
[2019-11-11] MEDS ORDERED: Tamsulosin HCl 0.4 MG CAP ONE (15:57)
[2019-11-11] MEDS: Sodium Chloride 0.9% 1,000 ML IV SCH (17:50)
[2019-11-11] MEDS: Clindamycin/D5W 900 MG in Premix Bag 1 BAG IVPB SCH ×2 (17:50→18:51)
[2019-11-11 18:01] VITALS: BMI 24.2
[2019-11-11] MEDS: Famotidine/PF 20 mg/2ml Vial SLOW IVP SCH (20:41)
[2019-11-11] MEDS: levETIRAcetam 500 MG TAB PO SCH (20:41)
[2019-11-11] MEDS ORDERED: Acetaminophen 500 MG TAB PO SCH ×2 (21:00)
[2019-11-11] MEDS ORDERED: Melatonin 3 MG TAB PO SCH (21:00)
[2019-11-11] MEDS ORDERED: Tamsulosin HCl 0.4 MG CAP PO SCH (21:00)
[2019-11-11] MEDS ORDERED: Acetaminophen 500 MG TAB PO PRN (22:12)
[2019-11-11 22:59] VITALS: BP 113/57
[2019-11-12] MEDS: Clindamycin/D5W 900 MG in Premix Bag 1 BAG IVPB SCH (00:55)
[2019-11-12 04:36] LABS: #Monocytes 0.6 thou/uL (0.11-0.59); #Neutrophils 4.2 thou/uL (1.40-6.50); %Basophils 0.2 % (0.0-1.0); %Eosinophils 0.3 % (0.0-10.0); %Lymphocytes 17.3 % (21.0-51.0); %Monocytes 10.7 % (0.0-10.0); %Neutrophils 71.6 % (42.0-75.0); Hemoglobin 9.6 g/dL (14.0-18.0); Mean Corpuscular HGB CONC 34.9 g/dL (32.0-36.0); Mean Corpuscular Hemoglobin 34.7 pg (27.0-31.0); Mean Corpuscular Volume 99.5 fL (78.0-98.0); Mean Platelet Volume 8.3 fL (7.4-10.4); Platelet Count 157 thou/uL (130-400); RBC Distribution Width 11.7 % (11.5-14.5); Red Blood Cell (RBC) Count 2.77 mill/uL (4.70-6.10); White Blood Cell (WBC) Count 5.9 thou/uL (4.8-10.8)
[2019-11-12] MEDS: Sodium Chloride 0.9% 1,000 ML IV SCH (04:37)
[2019-11-12 05:08] LABS: Anion Gap 11 mmol/L (10-20); BUN (Urea Nitrogen) 13 mg/dL (8.4-25.7); Calc. Creatinine Clearance 90 mL/min (70-130); Calcium 7.9 mg/dL (7.8-10.44); Carbon Dioxide 25 mmol/L (23-31); Chloride 110 mmol/L (98-107); Estimated GFR-MDRD Greater than 90; Glucose 104 mg/dL (80-115); Potassium 3.9 mmol/L (3.5-5.1); Sodium 142 mmol/L (136-145)
[2019-11-12] MEDS: levETIRAcetam 500 MG TAB PO SCH (07:45)
[2019-11-12] MEDS: Famotidine/PF 20 mg/2ml Vial SLOW IVP SCH (07:45)
[2019-11-12] MEDS ORDERED: Prevnar 13-Val Conj/PF 0.5 ML SYRINGE IM ONE (09:00)
[2019-11-12] MEDS ORDERED: FLU VACC QS2019-20(6MOS UP)/PF 60 MCG/0.5 ML SYRINGE IM ONE (09:00)
[2019-11-12] MEDS ORDERED: Multivitamin W/ Minerals 1 TAB PO SCH (09:00)
--- NOTE | 2019-11-12 11:42 | PRG ---
DATE OF SERVICE: 11/12/2019 Mr. Damico is postoperative day 1 from placement of right bone flap. He is doing very well neurologically at his baseline. We will begin to mobilize him as he has only gotten to a chair and walk to the door. If he is doing well later this morning, we will dismiss him. Job ID: [id number]
[2019-11-12 13:00] VITALS: TEMP 98.9
== END 2019-11-12 13:31 | disposition home or self-care (01) | DRG 517 ==
LOC: SURG A 05:54 → CCU 17:12
PROVIDERS: ADMIT Neurological Surgery; ATTEND Neurological Surgery
PROC: 0NR Head and Facial Bones, Replacement (ICD-10-PCS; principal; 2019-11-11)
DX: M95.2 Other acquired deformity of head (principal); K21.9 Gastro-esophageal reflux disease without esophagitis; Z88.0 Allergy status to penicillin; Z88.2 Allergy status to sulfonamides
CPT/HCPCS: 36415; 80048; 85025; C1713; J0690; J1170; J1885; J1956; J2001; J2704; J2765; J3010; J3490; S0028

== ENCOUNTER 2019-11-13 10:52 | Inpatient (IN) | payer BC ==
[2019-11-13] MEDS ORDERED: Ondansetron PF 4 MG/2 ML Vial ONE (11:20)
[2019-11-13 11:45] LABS: #Eosinphils 0.1 thou/uL (0.0-0.7); #Monocytes 0.6 thou/uL (0.11-0.59); #Neutrophils 4.9 thou/uL (1.40-6.50); %Basophils 0.2 % (0.0-1.0); %Eosinophils 0.9 % (0.0-10.0); %Lymphocytes 14.5 % (21.0-51.0); %Monocytes 8.7 % (0.0-10.0); %Neutrophils 75.7 % (42.0-75.0); Hemoglobin 12.3 g/dL (14.0-18.0); Mean Corpuscular HGB CONC 34.6 g/dL (32.0-36.0); Mean Corpuscular Hemoglobin 34.8 pg (27.0-31.0); Mean Platelet Volume 8.2 fL (7.4-10.4); Platelet Count 179 thou/uL (130-400); RBC Distribution Width 11.5 % (11.5-14.5); Red Blood Cell (RBC) Count 3.55 mill/uL (4.70-6.10); White Blood Cell (WBC) Count 6.5 thou/uL (4.8-10.8)
[2019-11-13] MEDS ORDERED: levETIRAcetam 500 MG/100 ML PREMIX BAG ONE (11:47)
[2019-11-13 11:52] LABS: INR-International Normal Ratio 0.9; PTT 28.4 SEC (22.9-36.1); Prothrombin Time 12.3 SEC (12.0-14.7)
--- NOTE | 2019-11-13 11:52 | RAD ---
EXAM: Single view of the chest HISTORY: Nausea vomiting and fever status post cranioplasty COMPARISON: 07/17/2019 FINDINGS: Single view of the chest shows a normal sized cardiomediastinal silhouette. There is no shereen dence of consolidation, mass, or pleural effusion. The bones are unremarkable. IMPRESSION: No evidence of acute cardiopulmonary disease
[2019-11-13 12:19] LABS: ALT (SGPT) 16 U/L (8-55); AST (SGOT) 19 U/L (5-34); Albumin 4.1 g/dL (3.4-4.8); Alkaline Phosphatase 39 U/L (40-110); Anion Gap 13 mmol/L (10-20); BUN (Urea Nitrogen) 8 mg/dL (8.4-25.7); Bilirubin, Total 0.5 mg/dL (0.2-1.2); Calc. Creatinine Clearance 0 mL/min (70-130); Calcium 9.2 mg/dL (7.8-10.44); Carbon Dioxide 26 mmol/L (23-31); Chloride 102 mmol/L (98-107); Estimated GFR-MDRD Greater than 90; Globulin 2.9 g/dL (2.4-3.5); Glucose 128 mg/dL (80-115); Potassium 4.2 mmol/L (3.5-5.1); Sodium 137 mmol/L (136-145)
--- NOTE | 2019-11-13 12:23 | CT ---
Head CT without contrast 11/13/2019: COMPARISON: 10/24/2019 HISTORY: Vomiting, fever, headache, cranioplasty 2 days ago TECHNIQUE: Axial CT imaging at 5 mm intervals from vertex through skull base without contrast FINDINGS: There are cutaneous scalp lisa present on the right at the level the vertex extending an teriorly and laterally. There is evidence of recent right frontal craniotomy with foci of gas along the course of the calvarial postoperative site as well as within the adjacent soft tissues of the sca lp. There are also foci of pneumocephalus deep to the postoperative site. Within the right frontal lobe deep to the craniotomy site is extensive multifocal cortical thickening as well as areas of extr a-axial fluid, including scattered areas of hyperdense extra-axial fluid on the basis of postoperative hemorrhage. Acute subdural hematoma of the right frontal region on axial image 10 suspe cted measuring at least 1.4 cm in transverse dimension. Additional scattered areas of extra-axial hemorrhage in the post operative site noted anteriorly and medially within the right frontal region. There is ex vacuo hydrocephalus of the frontal horn right lateral ventricle. There is extensive nonspecific scalp swelling on the right. Nonspecific areas of periventricular and subcortical white m atter hypodensity noted, which may represent small vessel disease. Imaged paranasal sinuses and mastoid air cells well-aerated. No displaced calvarial fracture. IMPRESSION: Evidence of recent right frontal craniotomy with fluid/edema and blood products within th e overlying scalp as well as deep to the craniotomy site involving the right frontal region. Associated right frontal lobe edema, extra-axial hemorrhage, and pneumocephalus. Short-term follow-up imaging advised.
[2019-11-13] MEDS ORDERED: Morphine 4 MG/ML VIAL ONE (12:37)
[2019-11-13] MEDS ORDERED: traMADol HCl 50 MG TAB PO PRN (12:49)
[2019-11-13] MEDS ORDERED: Acetaminophen/Codeine 30-300mg Tablet PO PRN (12:50)
[2019-11-13] MEDS ORDERED: Morphine 2 MG/ML SYRINGE SLOW IVP PRN (12:51)
[2019-11-13] MEDS ORDERED: Fentanyl 100 MCG/2 ML VIAL ONE (12:55)
[2019-11-13] MEDS: Sodium Chloride 0.9% 1,000 ML IV SCH (14:15)
[2019-11-13 15:26] VITALS: BMI 23.4
[2019-11-13] MEDS ORDERED: HYDROcodone/Acetaminophen 7.5/325 mg Tablet PO PRN (16:25)
[2019-11-13] MEDS ORDERED: Promethazine HCl 12.5 MG in Sodium Chloride 0.9% 50 ML IVPB PRN (18:29)
[2019-11-13] MEDS: Tamsulosin HCl 0.4 MG CAP PO SCH (19:49)
[2019-11-13] MEDS: Fentanyl 100 MCG/2 ML VIAL SLOW IVP PRN ×2 (19:49→22:17)
--- NOTE | 2019-11-13 19:51 | HP ---
CHIEF COMPLAINT: Headache, nausea, and vomiting postoperatively. 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 He is postoperative day #2 after undergoing a right cranioplasty with skull flap replacement by Dr. Wiggins. The patient's is at bedside and she provides additional history. She reports that the patient has had approximately 4 episodes of vomiting today, the first beginning at 0200 hours this morning and three within 2 hours prior to arrival to the emergency department. The patient also reports right-sided headache that was rated 8/10 in severity. He denies any left-sided headache. He denies any vision changes. The patient's states that she feels that he is more confused than usual and not acting himself. The patient has continued to have good movement in his arms and legs. He has remained ambulatory prior to arrival. No speech changes. PAST MEDICAL HISTORY: Significant for gastroesophageal reflux. PAST SURGICAL HISTORY: Vasectomy, craniectomy, and recent right-sided cranioplasty. PSYCHIATRIC HISTORY: None. CURRENT MEDICATIONS: 1. Keppra. 2. Tylenol. 3. Ibuprofen. 4. Flomax. ALLERGIES: PENICILLIN AND SULFA DRUGS. PHYSICAL EXAMINATION: GENERAL: The patient is awake, alert, and appropriate. He is alert and oriented to person, place, and time. No slurred speech. He responds to questions appropriately. He is able to identify and correctly states the use of a pen. He correctly states the definition of an island. HEENT: Pupils are 2 mm reactive and equal bilaterally. Extraocular movements are intact. NEUROLOGIC: Cranial nerves 2 through 12 are grossly intact. The patient has - 5/5 strength throughout his right upper and lower extremities. He has a 4+/5 strength in his left upper and lower extremities. Sensation to light touch is intact. The patient does have swelling in the right frontotemporal and periorbital area, and there is some bulging in the right temporoparietal area over his skull. This is tender to palpation. His surgical incision of the right scalp is clean, dry, and intact without any signs of infection. There are lisa in place and there is no drainage from the wound. IMPRESSION AND DIAGNOSES: 1. Postoperative headache, nausea, and vomiting. 2. Status post right-sided cranioplasty performed by Dr. Wiggins on 11/11/2019. PLAN: I have discussed this case and reviewed imaging with Dr. Sánchez. A CT of the brain without contrast was completed and was stable compared to prior imaging. There are findings of ventriculomegaly bilaterally that was present on prior studies, and this appears stable. There is no epidural hematoma present. At this time, the patient is neurologically stable on examination. However, we have admitted him to the Critical Care Unit for close neurologic monitoring with q.1 hour neuro checks to ensure that he does not have any neurologic decline overnight. If he does become less responsive, I have discussed with the patient and his the possibility of requiring an EVD placement to help with decreasing intracranial pressure. They have verbally consented to this procedure should it be necessary. The patient will remain on 500 mg Keppra b.i.d. for seizure prophylaxis. We will control his headache with appropriate pain medications. We will control his nausea with IV Zofran as needed. At this time, no neurosurgical intervention is indicated. We will continue to monitor the patient closely. Please call for any neurologic changes or other concerns. We will obtain a repeat CT of the brain without contrast tomorrow morning. 50 minutes was spent in review of records, imaging, evaluation, examination of the patient, and formulation of a plan. The remaining time was spent in counseling and coordination of care. This patient is two days postoperative and thus this visit falls under the 90-day global period. Job ID: [id number]
[2019-11-13] MEDS: Ondansetron PF 4 MG/2 ML Vial IVP PRN (20:12)
[2019-11-14] MEDS: Sodium Chloride 0.9% 1,000 ML IV SCH ×2 (01:02→16:46)
[2019-11-14] MEDS: Fentanyl 100 MCG/2 ML VIAL SLOW IVP PRN ×5 (01:08→20:44)
[2019-11-14] MEDS: HYDROcodone/Acetaminophen 10/325 mg Tablet PO PRN ×2 (08:15→22:08)
[2019-11-14] MEDS ORDERED: Labetalol HCl 100 MG/20 ML VIAL SLOW IVP PRN (08:40)
--- NOTE | 2019-11-14 08:52 | PRG ---
DATE OF SERVICE: 11/14/2019 This is Graham Martinez PA-C dictating a report for Abner Sánchez MD. This is postoperative check. Mr. Damico was readmitted yesterday due to increased headache, nausea and vomiting. The patient underwent replacement of right-sided skull flap with Dr. Wiggins on November 11. The patient at this point is doing well and really he appears to be more neurologically intact today than on presentation. He has been receiving fentanyl to control his headaches and this is intermittently working. He also has had no further vomiting since 8 p.m. yesterday and has not required any antiemetics. He remains on Keppra. He is oriented to person, place, and time and has very trace weakness in the left upper and lower extremities. Appears to have good strength on the right. His pupils are equal, round, and reactive bilaterally. He does have some continued swelling into the right side of the face and right eye. He is asking for suppository. There is no tension on the incision and no drainage from the incision. His speech is clear and coherent and I would give him a GCS of 15. His head CT from today demonstrates a stability of ventriculomegaly and stability of some scalp hematoma on the right postoperative. At this point, we will continue to closely monitor his neurologic status, but it does not appear that he will need any type of intervention including EVD placement. Very pleased with the way he looks today. Please call with any changes in patient's neurologic status, otherwise, we will continue to follow his neurologic exam. Job ID: [id number]
--- NOTE | 2019-11-14 09:08 | CT ---
PRELIMINARY REPORT/[facility]/EMERGENCY AFTER HOURS PROCEDURE: Exam: Unenhanced CT brain. History: POST OP CRANI Comparison: November 13, 2019 Findings: Right frontal craniotomy is present. Right sided skin lisa are present. There is edema of right frontal scalp. There is decreased pneumocephalus. White matter edema and encephalomalacia is present right frontal lobe. Small serpiginous areas of subarachnoid blood are present right infe rior frontal lobe, stable. The ventricles are prominent but stable. Impression: Stable postsurgical changes right frontal lobe. ELECTRONICALLY SIGNED BY: Leyla Bravo MD Nov 14, 2019 4:57:13 AM [employer] This report is intended for review by the ordering physician only, in accordance of law. If you recei ve this report in error, please call [facility] at [phone]. FINAL REPORT CT HEAD WITHOUT CONTRAST: Date: 11/14/2019 Time: 0419 hours INDICATION: Postop follow-up. COMPARISON: 11/13/2019. FINDINGS: The postop changes in the right frontal lobe appear stable from 11/13/2019. Edema, extra-axial hemorr cassandra, and operative defect in the right frontal lobe all appear stable. I am in agreement with the preliminary report from [facility].
--- NOTE | 2019-11-14 09:24 | CON ---
DATE OF CONSULTATION: 11/14/2019 REASON FOR CONSULTATION: ICU placement. 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 This required surgical decompression. He was admitted last week to have a bone flap replaced. He was discharged and had to be readmitted yesterday with increasing headache. He was put in the ICU for q.1 hour neuro checks. Has no other complaints besides the pain associated with headache. PAST MEDICAL HISTORY: 1. Previous hemorrhagic stroke. 2. Gastroesophageal reflux. PAST SURGICAL HISTORY: 1. Vasectomy. 2. Craniectomy. SOCIAL HISTORY: Nonsmoker. Does not consume alcohol. MEDICATIONS: Prior to admission: 1. Keppra. 2. Tylenol. 3. Ibuprofen. 4. Flomax. ALLERGIES: PENICILLIN AND SULFA. PHYSICAL EXAMINATION: VITAL SIGNS: Temperature 98.4, pulse 93, blood pressure 175/97, O2 saturation 98%. GENERAL: Awake, alert, in no distress. NEUROLOGIC: Nonfocal. LUNGS: Clear. CARDIAC: S1 and S2. Regular. ABDOMEN: Soft. EXTREMITIES: No edema. LABORATORY DATA: White blood cell count 6.5, hematocrit 35.7, and platelet count 179. INR 0.9. Sodium 137, potassium 4.2, BUN 8, creatinine 0.7, glucose 128. Lactate 1.7. CT result is pending. Chest x-ray from yesterday demonstrated no acute findings. ASSESSMENT: 1. Postoperative pain/headache. 2. Hypertension, probably secondary to pain. PLAN: 1. I will add some p.r.n. labetalol. 2. Further pain control per Neurosurgery Service. Job ID: [id number]
[2019-11-14] MEDS ORDERED: Bisacodyl 10 MG SUPP PR PRN (11:24)
[2019-11-14] MEDS: Ondansetron PF 4 MG/2 ML Vial IVP PRN (15:52)
[2019-11-14] MEDS: HYDROcodone/Acetaminophen 5/325 mg Tablet PO PRN (17:13)
[2019-11-14] MEDS: Tamsulosin HCl 0.4 MG CAP PO SCH (19:48)
[2019-11-15] MEDS: HYDROcodone/Acetaminophen 5/325 mg Tablet PO PRN ×3 (02:08→16:32)
[2019-11-15] MEDS: Sodium Chloride 0.9% 1,000 ML IV SCH ×2 (03:56→12:00)
[2019-11-15] MEDS: HYDROcodone/Acetaminophen 10/325 mg Tablet PO PRN (05:05)
--- NOTE | 2019-11-15 08:29 | PRG ---
DATE OF SERVICE: 11/15/2019 SUBJECTIVE: This morning he is doing better. No longer nauseated or having headache. He has been in the ICU following a replacement of his flap post craniotomy. He has persistent nausea and vomiting, which is better. OBJECTIVE: VITAL SIGNS: Temperature is 99, pulse 74, blood pressure 140/70, sats 99% on room air, respiratory rate 18. GENERAL: Awake, alert, responsive. CHEST: Decreased breath sounds. No wheezing. CARDIAC: Normal S1, S2. ABDOMEN: No masses. LABORATORY DATA: White count 6000 platelets count normal. Chemistries were okay. ASSESSMENT: Status post craniotomy, replacement of flap, benign prostatic hypertrophy. PLAN: Continue home Flomax. Otherwise, continue supportive care, PT. We will follow while in the ICU. Job ID: [id number]
[2019-11-15] MEDS: Senokot S 8.6-50 MG TAB PO SCH ×2 (09:01→20:34)
[2019-11-15] MEDS: Polyethylene Glycol 3350 17 GM Packet PO SCH (09:01)
[2019-11-15] MEDS: Bisacodyl 10 MG SUPP PR SCH (09:02)
--- NOTE | 2019-11-15 09:16 | PRG ---
DATE OF SERVICE: 11/15/2019 This is Graham Martinez PA-C dictating a report for Abner Sánchez MD. SUBJECTIVE: Mr. Damico is hospital day #2, having been readmitted for intractable headaches, nausea, and vomiting. Today, the patient continues to remain neurologically intact. He states his headache has improved today. He had one episode of nausea yesterday and received Zofran, but otherwise he has had no vomiting since November 13. His blood culture and scalp culture have been negative for growth. He has remained afebrile. Again neurologically, we have monitored him closely with hourly neuro checks over the past 36 hours and again, he has been stable. We will transfer him to the surgical floor with q.4 hours neuro checks. We will check CBC and BMP prior to transfer from the CCU. PHYSICAL EXAMINATION: The patient is awake, alert, oriented. He follows commands equally in all the extremities, though appears to be delayed on the left arm and leg. He has some fullness to his skull flap, but no tension on the incision, the incision is healing well. There is no drainage from the incision. Pupils are equal, round, and reactive bilaterally. The patient's speech is clear and coherent. Again, we will follow up on his labs, plan for transfer to the surgical floor, and Dr. Wiggins will return tomorrow. We will await their further recommendation in regard to next step in treatment, but at this time, the patient is neurologically stable and we are very pleased. Job ID: [id number]
[2019-11-15 09:27] LABS: Anion Gap 11 mmol/L (10-20); BUN (Urea Nitrogen) 5 mg/dL (8.4-25.7); Calc. Creatinine Clearance 91 mL/min (70-130); Calcium 8.4 mg/dL (7.8-10.44); Carbon Dioxide 26 mmol/L (23-31); Chloride 105 mmol/L (98-107); Estimated GFR-MDRD Greater than 90; Glucose 114 mg/dL (80-115); Potassium 3.7 mmol/L (3.5-5.1); Sodium 138 mmol/L (136-145)
[2019-11-15 09:42] LABS: #Eosinphils 0.1 thou/uL (0.0-0.7); #Lymphocytes 1.6 thou/uL (1.20-3.40); #Monocytes 0.5 thou/uL (0.11-0.59); #Neutrophils 2.2 thou/uL (1.40-6.50); %Basophils 0.8 % (0.0-1.0); %Eosinophils 2.7 % (0.0-10.0); %Lymphocytes 36.4 % (21.0-51.0); Hemoglobin 10.7 g/dL (14.0-18.0); Mean Corpuscular HGB CONC 34.5 g/dL (32.0-36.0); Mean Corpuscular Volume 98.7 fL (78.0-98.0); Platelet Count 175 thou/uL (130-400); RBC Distribution Width 11.3 % (11.5-14.5); Red Blood Cell (RBC) Count 3.15 mill/uL (4.70-6.10); White Blood Cell (WBC) Count 4.4 thou/uL (4.8-10.8)
--- NOTE | 2019-11-15 14:49 | PRG ---
DATE OF SERVICE: 11/15/2019 Mr. Damico was admitted for headache, nausea, and vomiting. He had ventriculomegaly and I was concerned as well about hydrocephalus. Repeat a head CT and it has been stable. He was started to be able to take an oral food and is no longer vomiting. His headache is improved as well. He is neurologically at his baseline and as such, I have let him know that Dr. Wiggins will be returning tonight and hopefully, they can avoid shunt placement. We will transfer him to the floor. Job ID: [id number]
[2019-11-15] MEDS: Acetaminophen 325 MG TAB PO PRN (20:33)
[2019-11-15] MEDS: Tamsulosin HCl 0.4 MG CAP PO SCH (20:34)
[2019-11-16] MEDS: Sodium Chloride 0.9% 1,000 ML IV SCH ×2 (00:59→08:53)
[2019-11-16] MEDS: HYDROcodone/Acetaminophen 5/325 mg Tablet PO PRN (04:19)
[2019-11-16] MEDS: Acetaminophen 325 MG TAB PO PRN (08:08)
[2019-11-16] MEDS: Polyethylene Glycol 3350 17 GM Packet PO SCH (08:54)
[2019-11-16] MEDS: Bisacodyl 10 MG SUPP PR SCH (08:54)
[2019-11-16] MEDS: Senokot S 8.6-50 MG TAB PO SCH (08:54)
--- NOTE | 2019-11-16 10:49 | PRG ---
DATE OF SERVICE: 11/16/2019 Mr. Damico is a 64-year-old gentleman known to me most recently for placement of a bone flap following hemicraniectomy several months ago. The bone flap was replaced on the . He was discharged home the next day at his baseline. Beginning at night and then the next day he started to develop severe headache as well as nausea. This prompted return to the ER, where he had CT scan performed, which showed evidence of replacement of the bone flap at midline. I see no convincing evidence for extra-axial hematoma. He does have gliosis and, as a result, ventriculomegaly. Fortunately over the last couple of days, he has improved dramatically. I have met with him this morning and talked to his and he appears to be at baseline. He is very upbeat and happy. His incision is well approximated without concerns. Neurologically, he is back to baseline and reports no significant headache or any emesis for a couple of days now. I am comfortable with him discharging home and they are eager to go home. We have planned followup for him in about a week for removal of his lisa. Job ID: [id number] [facility]
[2019-11-16] MEDS ORDERED: levETIRAcetam 500 MG TAB PO SCH ×2 (11:45→21:00)
[2019-11-16 11:48] VITALS: BP 125/76; TEMP 97.9
--- NOTE | 2019-11-17 22:21 | PQF ---
AMY VELEZ JAMES BRADLEY MD [id number] U-A12 [id number] CLINICAL DOCUMENTATION CLARIFICATION FORM: POST DISCHARGE Addendum to original discharge summary date: ____ Late entry note date: __ DATE:11/17/2019 ATTN:ARON ONTIVEROS MD Please exercise your independent, professional judgment in responding to the clarification form. Clinical indicators are provided on the bottom of this form for your review Please check appropriate box(s): [ ] Ventriculomegaly is a complication of cranioplasty [ X] Ventriculomegaly is not a complication of cranioplasty [ ] Other diagnosis [ ] Unable to determine CLINICAL INDICATORS - SIGNS / SYMPTOMS / LABS Patient presented to the emergency department today for a postoperative headache , nausea and vomiting that have been present today-Documented in H&P on 11/13 by Julia Lee PA-C Craniectomy and recent right -sided cranioplasty-Documented in H&P on 11/13 by Julia Lee PA-C His surgical incision of the right scalp is clean , dry, and intact without any signs of infection- Documented in H&P on 11/13 by Julia Lee PA-C I see no convincing evidence for extra axial hematoma. 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 All Rights Reserved [email or web address] [phone] ALEJANDRA
--- NOTE | 2019-11-21 21:59 | PQF ---
AMY VELEZ JAMES BRADLEY MD [id number] U-A12 [id number] CLINICAL DOCUMENTATION CLARIFICATION FORM: POST DISCHARGE Addendum to original discharge summary date: ____ Late entry note date: __ DATE:11/21/2019 ATTN:ARON ONTIVEROS MD Please exercise your independent, professional judgment in responding to the clarification form. Clinical indicators are provided on the bottom of this form for your review Please check appropriate box(s) to clarify if the following diagnosis has been ruled in or ruled out: Cerebral edema [ X ] Ruled in diagnosis [X ] Continue to treat [ ] Resolved [ ] Ruled out diagnosis [ ] Cannot rule out diagnosis [ ] Other diagnosis [ ] Unable to determine In addition, please specify: Present on Admission (POA): [ X ] Yes [ ] No [ ] Unable to determine For continuity of documentation, please document condition throughout progress notes and discharge summary. Thank You. CLINICAL INDICATORS - SIGNS / SYMPTOMS / LABS Findings:Right frontal craniotomy is present, There is edema of the right frontal scalp. There is decreased pneumocephalus. White matter edema and encephalomalacia is present right frontal lobe-Documented in CT Brain on 11/14 Postoperative headache nausea and vomiting -Documented in H&P on 11/13 by Julia Lee PA-C Status post right-sided cranioplasty performed by Dr Ontiveros on 11/11-Documented in H&P on 11/13 by Julia Lee PA-C I see no convincing evidence for extra -axial hematoma. he dose have gliosis and as a result ventriculomegaly. 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 All Rights Reserved [email or web address]
== END 2019-11-16 13:00 | disposition home or self-care (01) | DRG 70 ==
LOC: ERS 10:52 → CCU 14:28 → SURG B 11-15 11:05
PROVIDERS: ADMIT Surgery; ATTEND Surgery
DX: G93.89 Other specified disorders of brain (principal); G93.6 Cerebral edema; Z88.0 Allergy status to penicillin; Z88.2 Allergy status to sulfonamides; K21.9 Gastro-esophageal reflux disease without esophagitis; R40.2362 Coma scale, best motor response, obeys commands, at arrival to emergency department; R40.2142 Coma scale, eyes open, spontaneous, at arrival to emergency department; R40.2252 Coma scale, best verbal response, oriented, at arrival to emergency department; Z98.52 Vasectomy status
CPT/HCPCS: 36415; 70450; 71045; 80048; 80053; 83605; 85025; 85610; 85730; 87040; 87070; 87205; 96365; 96374; 96375; J1953; J2270; J2405; J3010

== ENCOUNTER 2019-11-16 20:59 | Emergency (ER) | payer BC ==
--- NOTE | 2019-11-16 23:23 | CT ---
CT BRAIN WITHOUT CONTRAST: 11/16/19 HISTORY: Seizure. COMPARISON: 11/14/19. FINDINGS: Postop changes of right frontal craniotomy and edema in the right frontal scalp is again seen. White matter edema and encephalomalacia in the right frontal lobe is again seen. The ventricular size is st able. No midline shift is identified. Small serpiginous areas of subarachnoid hemorrhage in the right inferior frontal lobe are stable. IMPRESSION: Stable exam. POS: OFF
[2019-11-16] MEDS ORDERED: Dexamethasone 4 mg/ml Vial ONE (23:59)
--- NOTE | 2019-11-17 05:09 | CON ---
DATE OF CONSULTATION: 11/16/2019 CHIEF COMPLAINT: Seizure, status post recent right cranioplasty. 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 Wiggins last , 11/10/2019. The patient was discharged home from the hospital earlier this afternoon, at which time he was stable and had resolvement of nausea and improvement of his headaches. The patient returns to the emergency department this evening after a reported seizure activity with sudden onset at 8:30 p.m. He reports facial twitching bilaterally that lasted for 2 minutes, then resolved. He states that he had no loss of consciousness during this episode. No recurrent episodes afterwards today. The patient reports that this seizure was similar in nature to previous he has experienced. He states that his last seizure was in June 2019. He has been on 500 mg Keppra b.i.d. while in the hospital. He did have some episodes of nausea and vomiting over the weekend, which was the reason he was admitted. Again, these had resolved prior to his discharge today and he has had no nausea this afternoon or evening. The patient's does note that he had a decreased appetite earlier this evening, but after a nap this improved and he was able to eat dinner. The patient reported current headache was on the right and was rated as a 3-4/10 in severity. This was improved from his 8/10 headaches for which he presented over the weekend. He denies any left-sided headache. He denies any other complaints. PHYSICAL EXAMINATION: GENERAL: The patient is awake, alert, and appropriate. He is oriented to self, place, and partially the time. He correctly states the year is 2019; however, he incorrectly states the day of the week is Thursday. He correctly identifies the pen and was able to state its use. He correctly gave the definition of an island. EYES: Pupils are equal, round, and reactive to light. The patient has a neglect of gaze with looking to the right. The patient has 5/5 strength throughout his right upper and lower extremities. He has 4/5 strength in his left upper and lower extremities. He has contracture of the left arm. The patient's right-sided scalp incision continues to heal well without any signs of infection. [place] in place. No wound drainage or dehiscence present. The patient does have some swelling of the right scalp and face, although this is improved compared to over the weekend. IMPRESSION: 1. Seizure-like activity, resolved. 2. Headaches, improved. 3. Status post right cranioplasty on 11/10/2019, six days postop. PLAN: At this time, I have reviewed this case and imaging with Dr. Sánchez. Requested that the ER physician order a CT of the brain without contrast, as one has not been completed since 11/14/2019. Repeat CT of the brain was stable in comparison to prior imaging. There is ventriculomegaly present, however the ventricles are no more enlarged compared to prior imaging. There is stable right-sided edema intra-axial and extra-axial. No new abnormalities noted. Keppra level lab draw was done with findings in the therapeutic range at 7.8. On examination, the patient remains stable compared to serial exams over the last 4 days. Given the patient's stable diagnostics examination, our team felt comfortable with allowing him to be discharged home this evening. He received 10 mg of Decadron p.o. in the emergency department prior to discharge. He was also given a prescription for a 4 day Decadron taper. We will update Dr. Wiggins and Star tomorrow morning, so they are aware of this development. This plan of care was discussed with the patient and his family, and they stated understanding. All questions answered at this time. The patient will follow up with Neurosurgery as previously scheduled. Call for any further questions or concerns. Job ID: [id number]
== END 2019-11-17 00:08 | disposition home or self-care (01) ==
LOC: ERS 20:59
DX: R56.9 Unspecified convulsions (principal); K21.9 Gastro-esophageal reflux disease without esophagitis; Z86.73 Personal history of transient ischemic attack (TIA), and cerebral infarction without residual deficits; Z79.899 Other long term (current) drug therapy
CPT/HCPCS: 36415; 70450; 80177; J1100